=== PATIENT | male | born 1950 | race Caucasian/White ===

== ENCOUNTER 2018-03-01 09:05 | Outpatient (CLI) | payer MEDICAID ==
[~2018-03-01] VITALS: Ht 175.3 cm; Wt 115.0 kg
--- NOTE | ~2018-03-01 | OP ---
PATIENT NAME: LYNDSEY PAVON MEDICAL RECORD: [id number] :48 LOCATION:D.CAT ADMISSION DATE: SURGEON: GRIS REYNAGA MD DATE OF OPERATION: 03/01/2018 PROCEDURES: 1. PTCA stent LAD. 2. Left heart catheterization. 3. Selective coronary angiography. 4. Left ventriculogram. INDICATION: Angina and coronary artery disease. PROCEDURE IN DETAIL: After informed consent was obtained and after a detailed explanation of the risks, benefits as well as alternative therapies, the patient elected to proceed with angiogram and angioplasty. The right radial area was prepped and draped in normal sterile fashion. Right radial artery was cannulated via modified Seldinger technique with placement of 6-Mauritanian sheath. All catheters exchanged through this sheath. FINDINGS: Left ventriculogram was performed in a standard 30-degree GUIDRY view, reveals global hypokinesis throughout all segments, overall ejection fraction is 20%. SELECTIVE CORONARY ANGIOGRAPHY: 1. Left main is with no significant angiographic disease. 2. Left anterior descending has greater than 70% stenosis throughout the mid vessel, otherwise only mild irregularities. 3. Left circumflex has moderate diffuse disease, but no discrete flow-limiting stenosis. 4. Right coronary artery is small, nondominant with diffuse disease throughout. PTCA STENT OF THE LAD: The stent used was a 3.0 x 34 mm [place]. Result was 0% residual stenosis. OVERALL IMPRESSION: Successful percutaneous transluminal angioplasty stent of the left anterior descending going from greater than 70% initial stenosis to 0% residual. TRANSINT:[id number] Voice Confirmation ID: [id number] DOCUMENT ID: [id number] GRIS REYNAGA MD at 1006 CC: [id number] DICTATION DATE: 03/01/[address] CRIER: 03/01/18 1416 [facility] CLI 03/02/18 [place] [address]
--- NOTE | ~2018-03-01 | DS ---
PATIENT:LYNDSEY MATOS :48 MEDICAL RECORD: [id number] DISCHARGE SUMMARY ADMISSION DATE: 03/01/18 DISCHARGE DATE: 03/02/18 DISCHARGE DIAGNOSES: 1. Angina. 2. Coronary artery disease. 3. Percutaneous transluminal coronary angioplasty stent left anterior descending this admission. 4. ICD. 5. Hypertension. 6. Hyperlipidemia. HOSPITAL COURSE: Mrs. Matos presents with unstable anginal symptomatology, found to have significant disease of the LAD, underwent successful PTCA stent of the LAD, discharged home with the addition of Effient to his medical regimen. We will follow up in the next week for ICD replacement. TRANSINT:[id number] Voice Confirmation ID: [id number] DOCUMENT ID: [id number] GRIS REYNAGA MD at 1006 CC: [id number] DICTATION DATE: 03/02/18917 INFORMATION CLERK [employer]: 03/02/18 1839 DEP CLI 03/02/18 [place] [address] [place] [address]
--- NOTE | ~2018-03-01 | HEMODYNAMI ---
PATIENT:LYNDSEY PAVON MEDICAL RECORD: [id number] : 48 LOCATION:[facility] ADMISSION DATE: 03/01/18 Generatedon:03/01/201811:00 Patient name: LYNDSEY PAVON Patient #: [id number] SSN: : 1950 Date of study: 03/01/2018 Page: Of Hemodynamic Procedure Report Patient Data Patient Demographics Procedure consent was obtained First Name: LYNDSEY Gender: Male Last Name: SAVANAH : 1950 Middle Initial: PALMA Age: 67 year(s) Patient #: [id number] Race: Additional ID: [id number] Contact details Address: [address] [place] [address] State: [place] City: [place] Zip code: [address] Past Medical History Allergies Allergen Reaction Date Comments Reported Morphine 07/20/2016 Other allergy 07/20/2016 LISINOPRIL Other allergy 03/01/2018 Morphine,Meoprolol, Plavix Admission Admission Data Admission Date: 03/01/2018 Admission Time: 9:05 Admit Source: Other Procedure Procedure Types Cath Procedure Diagnostic Procedure [facility] w/Coronaries PCI Procedure Coronary Stent Coronary Stent Initial Procedure Description Procedure Date Procedure Date: 03/01/2018 Procedure Start Time: 10:28 Procedure End Time: 11:00 Procedure Staff Name Function Efe Glaser MD Performing Physician Thuy Mendes RT Monitor Messi Burger RT Scrub Manny Zamorano RN Nurse Procedure Data Cath Procedure Fluoroscopy Diagnostic fluoroscopy Total fluoroscopy Time: 3.8 time: 3.8 min min Diagnostic fluoroscopy Total fluoroscopy dose: dose: 1145 mGy 1145 mGy Contrast Material Contrast Material Type Amount (ml) Isovue 300 123 Entry Location Entry Primary Successful Side Size Upsize Upsize Entry Closure Barbour ccessful Closure Location (Fr) 1 (Fr) 2 (Fr) Remarks Device Remarks Radial Right 6 Fr Mechanical artery Short Compression Estimated blood loss: 10 ml Diagnostic catheters Device Type Used For End Catheter Placement DIAGNOSTIC [place] 110cm 5 LV Angiography Fr catheter ([id number]) DIAGNOSTIC [place] 110cm 5 Left Coronary Fr catheter ([id number]) Angiography DIAGNOSTIC AR 2 MOD 5 Fr Right Coronary catheter ([id number]) Angiography Procedure Complications No complications Procedure Medications Medication Administration Route Dosage Solumedrol I.V. 125 mg 0.9% NaCl I.V. 100 ml/hr Oxygen etCO2 Nasal cannula 2 l/min Heparin Flush Bag added to field 2 bags (1000units/500ml NS) Lidocaine 2% added to field 20 Radial Cocktail added to field 1 syringe (Verapomil 2mg/Nitro 400mcg/Heparin 1500units) Versed I.V. 2 mg Fentanyl I.V. 100 mcg Radial Cocktail I.A. 1 syringe (Verapomil 2mg/Nitro 400mcg/Heparin 1500units) Heparin Bolus I.V. 5000 units Integrilin (Bolus I.V. 10.2 ml 2mg/ml) Integrilin (Bolus wasted 9.8 ml 2mg/ml) Effient P.O. 10 mg Hemodynamics Rest Pre Cath Intra NCS Post Cath Vital Signs Time Heart Resp SPO2 etCO2 NIBP (mmHg) Rhythm Pain Sedation Rate (ipm) (%) (mmHg) Status Level (bpm) 10:22:15 70 27 97 0 136/78(105) NSR 0 (11) 10(A) , No pain 10:27:16 67 26 97 0 142/74(115) NSR 0 (11) 10(A) , No pain 10:32:11 77 21 95 0 115/67(81) NSR 0 (11) 10(A) , No pain 10:37:06 74 19 96 0 118/65(87) NSR 0 (11) 9(A) , No pain 10:42:03 74 24 96 0 124/63(85) NSR 0 (11) 9(A) , No pain 10:47:02 73 20 96 0 Measuring NSR 0 (11) 9(A) , No pain 10:47:04 70 20 96 0 127/65(96) NSR 0 (11) 9(A) , No pain 10:52:03 68 19 97 0 Measuring NSR 0 (11) 9(A) , No pain 10:52:06 68 20 97 0 127/68(96) NSR 0 (11) 9(A) , No pain 10:57:04 68 19 95 0 Measuring NSR 0 (11) 9(A) , No pain 10:57:09 68 19 96 0 123/70(98) NSR 0 (11) 9(A) , No pain Medications Time Medication Route Dose Verified Delivered Reason Not es Effectiveness by by 10:24:56 Solumedrol I.V. 125 mg Manny Manny Per physician Jaun Zamorano RN RN 10:25:18 0.9% NaCl I.V. 100 Manny Manny Per physician ml/hr Jaun Zamorano RN RN 10:25:28 Oxygen etCO2 2 l/min Manny Manny Per physician Nasal Jaun Zamorano cannula RN RN 10:25:38 Heparin Flush added 2 bags Manny Manny used for Bag to Lorney Zamorano procedure (1000units/500ml field RN RN NS) 10:25:49 Lidocaine 2% added 20ml Manny Manny for local to vial Lorigan Jaun anesthetic RN RN 10:26:03 Radial Cocktail added 1 Manny Manny used for (Verapomil to syringe Lorigan Jaun procedure 2mg/Nitro RN RN 400mcg/Heparin 1500units) 10:28:17 Versed I.V. 2 mg Manny Manny for sedation Jaun Zamorano RN RN 10:28:27 Fentanyl I.V. 100 mcg Manny Manny for sedation Jaun Zamorano RN RN 10:29:19 Radial Cocktail I.A. 1 Manny Efe for (Verapomil syringe Lorney Tauth MD vasodilation 2mg/Nitro RN 400mcg/Heparin 1500units) 10:33:42 Heparin Bolus I.V. 5000 Manny Manny for units Jaun Zamorano anticoagulation RN RN 10:35:24 Integrilin I.V. 10.2 ml Manny Manny for (Bolus 2mg/ml) Jaun Zamorano antiplatelet RN RN therapy 10:35:36 Integrilin wasted 9.8ml Manny Manny to sharp's (Bolus 2mg/ml) Jaun Zamorano RN RN 10:44:09 Effient P.O. 10 mg Manny Manny for Jaun Zamorano antiplatelet RN RN therapy Procedure Log Time Note 10:02:09 Informed consent obtained and on chart 10:02:12 Admit Source: Other 10:02:25 Diagnostic Cath status Elective 10:02:26 Thuy Mendes RT(R) sent for patient. Start room use. 10:02:27 Time tracking: Regular hours (M-F 7:00 - 5:00) 10:02:32 Plan of Care:Hemodynamics will remain stable., Cardiac rhythm will remain stable., Comfort level will be maintained., Respiratory function will remain adequate., Patient/ family verbilizes understanding of procedure., Procedure tolerated without complication., Recovers from procedure without complications.. 10:02:47 H&P Date Dictated: 03/01/2018 New H&P dictated by physician.. 10:09:28 Patient received from ED to CCL 1 Alert and oriented. Tansferred to table in Supine position. 10:09:29 Warm blankets applied, and yoni hugger turned on for patient comfort. 10:09:30 Correct patient and procedure confirmed by team. 10:09:31 ECG and BP/O2 sat monitors applied to patient. 10:09:32 Pre-procedure instructions explained to patient. 10:09:32 Pre-op teaching completed and patient verbalized understanding. 10:09:46 Family in waiting room. 10:09:48 Patient NPO since Midnight. 10:10:07 Patient allergic to Other allergyMorphine,Meoprolol, Plavix 10:21:04 Vital chart was started 10:21:07 Rhythm: paced 10:21:09 Full Disclosure recording started 10:21:13 Is the patient allergic to Iodine/contrast media? No. 10:21:16 Is patient on blood thinner?Yes 10:21:19 ACC The patient was administered the following blood thiners within the last 24 hours: ACCPlavix 10:22:49 Patient diabetic? No. 10:23:11 Previous problem with sedation/anesthesia? No ? 10:23:12 Snore? Yes 10:23:13 Sleep apnea? Yes 10:23:14 Deviated septum? No 10:23:15 Opens mouth fully? Yes 10:23:15 Sticks out tongue? Yes 10:23:17 Airway obstruction? No ? 10:23:21 Dentures? No ? 10:23:24 Pre procedure: right dorsailis pedis pulse 2+ Normal; easily identifiable; not easily obliterated 10:23:26 Modified Pal's test Ulnar < 7 seconds 10:23:28 Patient pain scale 0/10 ?. 10:23:33 IV patent on arrival in left forearm with 0.9% NaCl at [facility]. 10:23:38 Lab results completed and on chart. 10:23:55 Right Radial & Left Groin area was prepped with chlora-prep and draped in sterile fashion 10:23:57 Alarms reviewed by R. N. 10:23:57 Sharps counted by scrub and verified by R.N. 10:23:59 Use device set Radial Dx or PCI 10:24:01 ACIST Syringe (85658) opened to sterile field. 10:24:01 Medline Cath Pack ([id number]) opened to sterile field. 10:24:01 Bag Decanter (2002S) opened to sterile field. 10:24:02 DIAGNOSTIC WIRE .035 260cm J wire (814303) opened to sterile field. 10:24:02 ACIST Hand Control (11032) opened to sterile field. 10:24:03 ACIST Manifold (61380) opened to sterile field. 10:24:03 Tegaderm 4 x 4 (1626W) opened to sterile field. 10:24:04 MBrace Wrist Support ([id number]) opened to sterile field. 10:24:07 SHEATH 6Fr Prelude Radial ([id number]) opened to sterile field. 10:24:56 Solumedrol 125 mg I.V. was administered by Manny Zamorano RN; Per physician; 10:25:01 Final Timeout: patient, procedure, and site verified with staff and physician. All members of the team are in agreement. 10:25:03 Right Radial site verified by team. 10:25:06 Physical assessment completed. ASA score P 2 - A patient with mild systemic disease as per Efe Glaser MD. 10:25:09 Sedation plan: IV Moderate Sedation Medication:Versed, Fentanyl 10:25:18 0.9% NaCl 100 ml/hr I.V. was administered by Manny Zamorano RN; Per physician; 10:25:28 Oxygen 2 l/min etCO2 Nasal cannula was administered by Manny Zamorano RN; Per physician; 10:25:38 Heparin Flush Bag (1000units/500ml NS) 2 bags added to field was administered by Manny Zamorano RN; used for procedure; 10:25:49 Lidocaine 2% 20ml vial added to field was administered by Manny Zamorano RN; for local anesthetic; 10:26:03 Radial Cocktail (Verapomil 2mg/Nitro 400mcg/Heparin 1500units) 1 syringe added to field was administered by Manny Zamorano RN; used for procedure; 10::42 Procedure started. 10:27:45 Zero performed for pressure channel P1 10::17 Versed 2 mg I.V. was administered by Manny Zamorano RN; for sedation; 10::23 Local anesthetic to right radial artery with Lidocaine 2% by Efe Glaser MD.INITIAL ACCESS ONLY 10::27 Fentanyl 100 mcg I.V. was administered by Manny Zamorano RN; for sedation; 10:29:19 Radial Cocktail (Verapomil 2mg/Nitro 400mcg/Heparin 1500units) 1 syringe I.A. was administered by Efe Glaser MD; for vasodilation; 10:29:30 A 6 Fr Short sheath was inserted into the Right Radial artery 10:29:45 A DIAGNOSTIC [place] 110cm 5 Fr catheter ([id number]) was advanced over the wire and used for LV Angiography. 10:30:11 LV gram done using GUIDRY 10:30:15 Injector settings: Ml/sec: 5, Volume: 15, 10:30:21 EF : 20 % 10:31:11 Use device set [facility] PCI 10:31:14 INFLATOR Merit BasixCompak (HN2744) opened to sterile field. 10:31:19 CHOICE PT Extra Support 182cm wire ([id number]) opened to sterile field. 10:33:10 A DIAGNOSTIC [place] 110cm 5 Fr catheter (640057) was advanced over the wire and used for Left Coronary Angiography. 10:33:30 Catheter removed. 10:33:36 A DIAGNOSTIC AR 2 MOD 5 Fr catheter ([id number]) was advanced over the wire and used for Right Coronary Angiography. 10:33:42 Heparin Bolus 5000 units I.V. was administered by Manny Zamorano RN; for anticoagulation; 10:34:12 Catheter removed. 10:34:18 GUIDE 6FR XBLAD 3.5 catheter (55698333) opened to sterile field. 10:34:27 6 Fr XBLAD 3.5 guide catheter was inserted over the wire 10:35:24 Integrilin (Bolus 2mg/ml) 10.2 ml I.V. was administered by Manny Zamorano RN; for antiplatelet therapy; 10:35:36 Integrilin (Bolus 2mg/ml) 9.8ml wasted was administered by Manny Zamorano RN; to sharp's; 10:37:41 Guide Catheter removed. unable to cannulate vessel. 10:37:54 GUIDE 6FR XBLAD 4.0 catheter (09482058) opened to sterile field. 10:39:43 CHOICE PT ES wire advanced. 10:41:45 Place stent Inflation Number: 1 A SABRA RX 3.0 x 34 stent ([id number]) was prepped and advanced across the Mid LAD. The stent was deployed at 13 BRIANDA for 0:10 (min:sec). 10:41:49 Stent catheter was removed intact over wire. 10:41:49 Wire removed. 10:41:50 Guide catheter removed. 10:41:59 Sheath removed intact; hemostasis achieved with Mechanical Compression to the Right Radial artery. 10:42:01 Procedure ended.(Physican Out) 10:42:13 Fluoroscopy time 03.80 minutes. 10:42:18 Flurop Dose total: 1145 10:42:18 Fluoroscopy dose: 1145 mGy 10:42:51 Contrast amount:Isovue 300 123ml. 10:42:52 Sharps counted by scrub and verified by R.N. 10:42:54 TR band inflated with 12cc of air. 10:42:55 Insertion/operative site no bleeding no hematoma. 10:43:01 Post right radial artery:stable, clean and dry 10:43:03 Post Procedure Pulses reassessed and unchanged 10:43:06 Post-procedure physical assessment completed. ASA score P 2 - A patient with mild systemic disease as per Efe Glaser MD. 10:43:10 Post procedure rhythm: unchanged. 10:43:46 Estimated blood loss: 10 ml 10:43:48 Post procedure instruction explained to patient.Patient verbalizes understanding. 10:43:53 Patient needs reinforcement of post procedure teaching. 10:44:05 Procedure type changed to Cath procedure, Diagnostic procedure, LHC, LHC w/Coronaries, PCI procedure, Coronary Stent, Coronary Stent Initial 10:44:09 Effient 10 mg P.O. was administered by Manny Zamorano RN; for antiplatelet therapy; 10:44:27 TR BAND Standard ([id number]) opened to sterile field. 10:46:07 AICD INTERROGATED BY ALEK DWYER 10:46:20 Procedure Complication : No complications 10:46:22 See physician's report for complete and final results. 10:46:43 Procedure and supply charges have been captured, reviewed, submitted and are correct. 10:48:35 CALLED FOR PCU BED 11:00:06 Vital chart was stopped 11:00:08 Report given to Pre/Post Procedure Room. 11:00:12 Patient transfered to Pre/Post Procedure Room with Stretcher. 11:00:14 Procedure ended. 11:00:14 Full Disclosure recording stopped 11:00:18 End room use (Document Last) Intervention Summary Intervention Notes Time ActionType Lesion and Equipment Used Action# Pressure Duration Attributes 10:41:45 Place stent Mid LAD SABRA RX 3.0 x 1 13 00:10 34 stent ([id number]) Device Usage Item Name Manufacture Quantity Catalog Number Hospital Part Current Minimal Lot# / Charge Number Stock Stock Serial# Code ACIST Syringe Acist 1 29139 115329 359928 506259 20 (16568) Medical Systems Inc Medline Cath Cardinal 1 [id number] 321659 28393 729281 5 Pack Health ([id number]) Bag Decanter Microtek 1 2001S 711781 11173 053805 5 (2001S) Medical Inc. DIAGNOSTIC WIRE St Jared 1 176293 690196 039438 983269 30 .035 260cm J wire (134089) ACIST Hand Acist 1 07785 462007 206212 590022 5 Control (68612) Medical Systems Inc ACIST Manifold Acist 1 23008 758644 015689 757181 5 (15340) Medical Systems Inc Tegaderm 4 x 4 3M 1 1626W 205837 660159 916320 5 (1626W) MBrace Wrist Advanced 1 140-0250-00 437484 89577 500363 5 Support Vascular ([id number]) Dynamics SHEATH 6Fr Merit 1 [id number] 231408 878965 265679 5 Prelude Radial Medical ([id number]) DIAGNOSTIC Terumo 1 40-7200 675738 252756 391360 5 [place] 110cm 5 Fr catheter (650083) INFLATOR Merit Merit 1 QB4601 359420 222420 127634 15 [facility] Medical (DL1204) CHOICE PT Extra [place] 1 [id number] 912342 629657 548308 5 Support 182cm Scientific wire ([id number]) DIAGNOSTIC AR 2 Cardinal 1 [id number] 930572 619981 988622 20 MOD 5 Fr Health catheter (361872A) GUIDE 6FR XBLAD Cardinal 1 [id number] 480457 389581 003957 10 3.5 catheter Health (58550962) GUIDE 6FR XBLAD Cardinal 1 78734113 454661 048780 423863 3 4.0 catheter Health (57649499) SABRA RX 3.0 x Medtronic 1 [id number] 914153 6124005 682328 5 [id number] 34 stent ([id number]) TR BAND Terumo 1 [id number] 395013 708729 583516 40 Standard ([id number]) Signature Audit [place] Stage Time Signature Unsigned Intra-Procedure 03/01/2018 Thuy 11:00:30 AM Counts RT(R) Signatures Monitor : Thuy Signature : Counts RT Date : Time : [address] [address]
--- NOTE | ~2018-03-01 | HP ---
PATIENT: LYNDSEY MATOS MEDICAL RECORD: [id number] ACCOUNT: [id number] LOCATION:[place] : 48 ADMISSION DATE: 03/01/18 HISTORY AND PHYSICAL EXAMINATION DIAGNOSES: 1. Unstable angina. 2. Coronary artery disease. 3. ICD. 4. Cardiomyopathy, chronic systolic dysfunction. 5. Hypertension. 6. Hyperlipidemia. HISTORY OF PRESENT ILLNESS: Mr. Matos presents with increasing episodes of chest pain and chest discomfort compatible with angina greater than 1 week in duration. It is just like that of his previous angina. He is status post multivessel PTCA and stent. He has cardiomyopathy. Ejection fraction in the 20% range. He as well has an ICD and he is not sure if he has had ICD discharges. PHYSICAL EXAMINATION: GENERAL APPEARANCE: Well-nourished, well-developed, appears stated age. Level of distress, comfortable. PSYCHIATRIC: Mental status, alert, normal affect. Orientation, oriented to time, place and person. EYES: Lids and conjunctiva, noninjected. No discharge, no pallor. ENT: Lips, teeth, gums, normal dentition. Oropharynx, no cyanosis, no pallor. NECK: Carotid arteries, bilateral normal upstroke, no bruits, no thrills. JUGULAR VEINS: No jugular venous pressure or distention. CERVICAL LYMPH NODES: Nontender, nonenlarged. THYROID: Not enlarged. Nontender. No nodules. LUNGS: Respiratory effort, unlabored. CHEST: Normal curvature. No thoracic deformity. No chest wall tenderness. Percussion, resonant. Auscultation, clear. No wheezes, no rales, no rhonchi. CARDIOVASCULAR: Precordial exam, nondisplaced. No heaves or pericardial thrills. Rate and rhythm, regular. Heart sounds, normal S1, normal S2. No S3, no gallop, no rub. Systolic murmur, not heard. Diastolic murmur, not heard. EXTREMITIES: No cyanosis, no edema. Peripheral pulses, full and equal in all extremities, except as noted. No bruits appreciated. ABDOMEN: Soft, nondistended. Normal aorta. No bruit. Nontender. No masses. Liver, nontender, no hepatomegaly. Spleen, nontender, no splenomegaly. MUSCULOSKELETAL: No joint tenderness. No joint swelling. No erythema. NEUROLOGICAL: Normal gait, normal strength, normal tone. SKIN: Warm and dry. REVIEW OF SYSTEMS: The patient reports easy bruising but reports no swollen glands. The patient reports no fever, no night sweats, no significant weight gain, no significant weight loss. No significant exercise tolerance. The patient reports no dry eyes, no irritation, no vision change. Patient reports no difficulty hearing and no ear pain. Patient reports no frequent nose bleeds or nose and sinus problems. Patient reports on arm pain on exertion. No shortness of breath while lying down. No history of heart murmur. Patient reports no cough, no wheezing or coughing up blood. Patient reports no abdominal pain, no vomiting. Normal appetite. No diarrhea and not vomiting blood. No nausea and no constipation. Patient reports no incontinence. No HISTORY AND PHYSICAL [id number] LYNDSEY MATOS difficulty urinating. No hematuria. No increased frequency. Patient reports no muscle aches. No weakness, no arthralgias, no back pain. No swelling of the extremities. Patient reports no abnormal mole, no jaundice, no rashes. Reports no loss of consciousness. No weakness and no numbness. No seizures, dizziness, or headaches. The patient reports no depression, no sleep disturbance, feeling safe in a relationship and no alcohol abuse. Patient reports on fatigue. Reports no runny nose or sinus pressure. No itching, no hives, and no frequent sneezing. ASSESSMENT AND PLAN: ICD was interrogated. It is LCINT, but there have been no therapies delivered and no ventricular tachycardia. We will proceed with coronary angiography. Further care depends upon findings of the angiography. TRANSINT:[id number] Voice Confirmation ID: [id number] DOCUMENT ID: [id number] GRIS REYNAGA MD at 1006 CC: [id number] DICTATION DATE: 03/01/18 1051 RIVET TAPPING MACHINE OPERATOR: 03/01/18 1229 DEP CLI 03/02/18 [place] [id number]
[~2018-03-01 09:05] MED LIST: ASPIRIN325 MG PO; AVAPRO150 MG PO; BAYER CHEWABLE81 MG PO; BENADRYL25 MG PO; BENICAR20 MG PO; BETA BLOCKER; BLOOD THINNER; CIMETIDINE200 MG PO; COREG 3.1253.125 MG GT; COREG 3.1253.125 MG PO; DIOVAN160 MG PO; EFFIENT10 MG PO; EPIPEN0.3 MG/0.3 IM; FAMOTIDINE10 MG; KLOR-CON 1010 MEQ; KLOR-CON20 MEQ/PKT PO; LASIX20 MG; LASIX20 MG PO; MEDROL DOSE PACK4 MG PO; PEPCID20 MG PO; PLAVIX75 MG PO; PRINIVIL20 MG PO; UNKNOWN B/P MED
[2018-03-01 09:28] LABS: BASOPHILS 0.2 % (0-2); EOSINOPHILS 3.6 % (0-7); HEMATOCRIT 43.7 % (42.0-54.0); IMMATURE GRANULOCYTES 0.2 % (0-5); LYMPHOCYTES 21.6 % (15-50); MCH 30.3 pg (26.0-34.0); MCHC 34.3 g/dL (31.0-37.0); MCV 88.3 fL (80.0-100.0); MEAN PLATELET VOLUME 11.4 fL (7.4-10.4); MONOCYTES 11.8 % (2-11); NEUTROPHILS 62.6 % (40-80); PLATELET COUNT 165 10x3/uL (130-400); RBC 4.95 10x6/uL (4.20-6.10); RDW 12.4 % (11.5-14.5); WBC 6.1 10x3/uL (4.8-10.8)
[2018-03-01 09:59] LABS: ALBUMIN 3.4 g/dL (3.4-5.0); ALKALINE PHOSPHATASE 56 U/L (46-116); ALT (SGPT) 25 U/L (10-68); BILIRUBIN - TOTAL 0.68 mg/dL (0.2-1.3); CALC OSMOLALITY 282 mosm/kg (275-300); CALCIUM 8.6 mg/dL (8.5-10.1); CARBON DIOXIDE 24.8 mmol/L (21.0-32.0); CHLORIDE - SERUM 106 mmol/L (98-107); CREATININE - SERUM 1.3 mg/dL (0.6-1.3); GLUCOSE 104 mg/dL (74-106); POTASSIUM - SERUM 4.2 mmol/L (3.5-5.1); PROTEIN - SERUM 6.6 g/dL (6.4-8.2); SODIUM 140 mmol/L (136-145); UREA NITROGEN 24 mg/dL (7-18); eGFR NON AFRICAN AMERICAN 58 mL/min (90-120)
[2018-03-01 10:15] LABS: CHOL - HDL RATIO 4.6 ratio (2.3-4.9); CHOLESTEROL, TOTAL 184 mg/dL (0-200); CKMB 3.1 U/L (0.0-3.6); CREATINE KINASE 79 UL (21-232); HDL CHOLESTEROL 40 mg/dL (32-96); LDL CHOLESTEROL 113 mg/dL (0-100); LDL-HDL RATIO 2.8 ratio (1.5-3.5); TRIGLYCERIDE 159 mg/dL (30-200); TROPONIN-I < 0.017 ng/mL (0.000-0.060)
[2018-03-01 14:08] VITALS: BP 158/74; Ht 175.3 cm; Wt 115.0 kg
[2018-03-01 15:46] VITALS: BP 153/80
[2018-03-01 20:00] VITALS: BP 142/65
[2018-03-02] VITALS: BP 138/56
[2018-03-02 04:00] VITALS: BP 147/61
[2018-03-02 08:53] VITALS: BP 155/70
[2018-03-02] MEDS ORDERED: EFFIENT10 MG PO (09:54)
[2018-03-10] MEDS ORDERED: [UNRECOGNIZED DRUG - OTHER] PO (08:03)
[2018-03-10] MEDS ORDERED: KEFLEX500 MG PO (09:56)
== END 2018-03-02 12:00 | disposition home or self-care (01) ==
LOC: D.ER 09:05 → D.CATH 09:05 → D.M2 09:05 → EDSTATUS 10:10 → D.M2 11:02 → D.CATH 03-02 12:00
PROVIDERS: Family Medicine
DX: I25.110 Atherosclerotic heart disease of native coronary artery with unstable angina pectoris (principal); Z95.810 Presence of automatic (implantable) cardiac defibrillator; I11.0 Hypertensive heart disease with heart failure; I50.22 Chronic systolic (congestive) heart failure; I42.9 Cardiomyopathy, unspecified; E78.5 Hyperlipidemia, unspecified; Z01.812 Encounter for preprocedural laboratory examination
CPT/HCPCS: 93458; C9600

== ENCOUNTER → 2018-03-10 06:35 | Outpatient (CLI) | payer SELFPAY ==
[~2018-03-10] VITALS: Ht 175.3 cm; Wt 109.1 kg
--- NOTE | ~2018-03-10 | HEMODYNAMI ---
PATIENT:LYNDSEY PAVON MEDICAL RECORD: [id number] : 48 LOCATION:[facility] ADMISSION DATE: 03/10/18 Generatedon:03/10/20189:54 Patient name: LYNDSEY PAVON Patient #: [id number] SSN: : 1950 Date of study: 03/10/2018 Page: Of Hemodynamic Procedure Report Patient Data Patient Demographics Procedure consent was obtained First Name: LYNDSEY Gender: Male Last Name: SAVANAH : 1950 Middle Initial: PALMA Age: 67 year(s) Patient #: [id number] Race: Additional ID: [id number] Contact details Address: [address] [place] [address] State: [place] City: [place] Zip code: [address] Past Medical History Allergies Allergen Reaction Date Comments Reported Morphine 07/20/2016 Other allergy 07/20/2016 LISINOPRIL Other allergy 03/01/2018 Morphine,Meoprolol, Plavix Admission Admission Data Admission Date: 03/10/2018 Admission Time: 6:35 Procedure Procedure Types Cath Procedure Diagnostic Procedure PPM/ICD Internal Cardiac Defib. Exchange Sedation Charges Moderate Sedation up to 30 minutes Procedure Description Procedure Date Procedure Date: 03/10/2018 Procedure Start Time: 9:14 Procedure End Time: 9:54 Procedure Staff Name Function Jose Bailey MD Performing Physician Thuy Mendes RT Monitor Jean Mcelroy RN Nurse Messi Burger RT Scrub Procedure Data Cath Procedure Estimated blood loss: 5 ml Procedure Complications No complications Procedure Medications Medication Administration Route Dosage Oxygen NC 2 l/min Ancef (1Gm/50ml NS) I.V.P.B 1 g Ancef Irrigation Topical 1 g (1gm/500ml NS) Versed I.V. 2 mg Fentanyl I.V. 50 mcg Versed I.V. 1 mg Fentanyl I.V. 25 mcg Fentanyl I.V. 50 mcg Fentanyl I.V. 50 mcg Hemodynamics Rest Heart Rate: 70 (bpm) Snapshots Pre Cath Intra NCS Post Cath Vital Signs Time Heart Resp SPO2 etCO2 NIBP (mmHg) Rhythm Pain Sedation Rate (ipm) (%) (mmHg) Status Level (bpm) 9:05:49 71 27 96 0 Time NSR 0 (11) 10(A) Exceeded , No pain 9:08:57 71 18 96 0 173/91(142) NSR 0 (11) 10(A) , No pain 9:13:17 68 16 97 0 139/119(131) NSR 0 (11) 10(A) , No pain 9:18:22 83 19 93 0 173/100(137) NSR 0 (11) 10(A) , No pain 9:22:40 90 19 93 0 174/96(127) NSR 0 (11) 10(A) , No pain 9:26:56 82 18 95 0 193/101(137) NSR 0 (11) 10(A) , No pain 9:31:20 99 19 94 0 182/99(130) NSR 0 (11) 10(A) , No pain 9:35:41 90 17 97 0 154/96(118) NSR 0 (11) 10(A) , No pain 9:42:03 77 20 97 0 Time NSR 0 (11) 10(A) Exceeded , No pain 9:47:40 74 19 99 0 184/98(141) NSR 0 (11) 10(A) , No pain 9:52:38 13 96 0 Measuring NSR 0 (11) 10(A) , No pain 9:54:02 15 97 0 Time NSR 0 (11) 10(A) Exceeded , No pain Medications Time Medication Route Dose Verified Delivered Reason Notes Effectiven ess by by 9:09:37 Oxygen NC 2 Jose Buffie used for l/min Leo Mcelroy molder punch 9:09:48 Ancef I.V.P.B 1 g Jose Buffie used for (1Gm/50ml Leo Mcelroy molder punch NS) 9:09:55 Ancef Topical 1 g Jose Buffie used for Irrigation Leo Mcelroy molder punch (1gm/500ml NS) 9:12:28 Versed I.V. 2 mg Jose Buffie for Leo Mcelroy RN sedation 9:12:35 Fentanyl I.V. 50 Jose Buffie for mcg Leo Mcelroy RN sedation 9:16:06 Versed I.V. 1 mg Jose Buffie for Leo Mcelroy RN sedation 9:16:12 Fentanyl I.V. 25 Jose Buffie for mcg Leo Mcelroy RN sedation 9:18:13 Fentanyl I.V. 50 Jose Buffie for mcg Leo Mcelroy RN sedation 9:30:45 Fentanyl I.V. 50 Jose Buffie for mcg Leo Mcelroy RN sedation Procedure Log Time Note 8:44:40 Jean Mcelroy RN sent for patient. Start room use. 8:44:41 Time tracking: Regular hours (M-F 7:00 - 5:00) 8:44:45 Plan of Care:Hemodynamics will remain stable., Cardiac rhythm will remain stable., Comfort level will be maintained., Respiratory function will remain adequate., Patient/ family verbilizes understanding of procedure., Procedure tolerated without complication., Recovers from procedure without complications.. 8:51:23 Patient received from Pre/Post Procedure Room to [facility] 3 Alert and oriented. Tansferred to table in Supine position. 8:51:24 Warm blankets applied, and yoni hugger turned on for patient comfort. 8:51:24 Correct patient and procedure confirmed by team. 8:51:25 Signed procedure consent form obtained from patient. 8:51:26 ECG and BP/O2 sat monitors applied to patient. 8:51:27 Full Disclosure recording started 9:02:36 Vital chart was started 9:02:39 Rhythm: sinus rhythm 9:02:49 H&P Date Dictated: 02/21/2018 Within 30 days and on chart., H&P Addendum completed by physician on day of procedure. (MUST COMPLETE FOR ALL OUTPATIENTS). 9:02:51 Pre-procedure instructions explained to patient. 9:02:51 Pre-op teaching completed and patient verbalized understanding. 9:02:53 Family in patients room. 9:02:54 Patient NPO since Midnight. 9:07:46 Is the patient allergic to Iodine/contrast media? No. 9:07:50 Patient diabetic? No. 9:09:02 Is patient on blood thinner?Yes 9:09:04 ACC The patient was administered the following blood thiners within the last 24 hours: ACCEffient 9:09:10 Previous problem with sedation/anesthesia? No ? 9:09:11 Snore? Yes 9:09:11 Sleep apnea? Yes 9:09:12 Deviated septum? No 9:09:14 Opens mouth fully? Yes 9:09:14 Sticks out tongue? Yes 9:09:16 Airway obstruction? No ? 9:09:21 Dentures? No ? 9:09:26 Patient pain scale 0/10 ?. 9:09:31 IV patent on arrival in right forearm with 0.9% NaCl at [facility]. 9:09:33 Lab results completed and on chart. 9:09:37 Oxygen 2 l/min NC was administered by Jean Mcelroy RN; used for procedure; 9:09:41 Left chest area was prepped with chlora-prep and draped in sterile fashion 9:09:42 Alarms reviewed by R. N. 9:09:42 Sharps counted by scrub and verified by R.N. 9:09:48 Ancef (1Gm/50ml NS) 1 g I.V.P.B was administered by Jean Mcelroy RN; used for procedure; 9:09:55 Ancef Irrigation (1gm/500ml NS) 1 g Topical was administered by Jean Mcelroy RN; used for procedure; 9:09:56 Medtronic credit representative Christos Goldbergoe present for procedure. 9:10:23 Pre sharps counted by scrub and verified by RN: Sutures: 2; Sponges: 5; Stick needles: 0; Skin needles: 2; Blade: 1; Cautery: 1 9:10:26 Grounding pad site Right thigh. 9:10:27 Grounding pad site free from injury. 9:10:34 Use device set NORRED PPM 9:10:39 Tegaderm 4 x 4 (1626W) opened to sterile field. 9:10:40 Stapler Skin 35W Proximate Plus (PMW35) opened to sterile field. 9:10:40 Peak PlasmaBlade 3.0S ([id number]) opened to sterile field. 9:10:42 Cautery Tip Dormitory Maid opened to sterile field. 9:10:43 Cautery Pushbutton Pencil opened to sterile field. 9:10:47 2-0 Vicryl Plus [id number] opened to sterile field. 9:10:55 2-0 Vicryl Plus [id number] opened to sterile field. 9:11:02 Final Timeout: patient, procedure, and site verified with staff and physician. All members of the team are in agreement. 9::14 Left chest site verified by team. 9::17 Physical assessment completed. ASA score P 2 - A patient with mild systemic disease as per Jose Bailey MD. 9:11:20 Sedation plan: IV Moderate Sedation Medication:Versed, Fentanyl 9:12:28 Versed 2 mg I.V. was administered by Jean Mcelroy RN; for sedation; 9:12:35 Fentanyl 50 mcg I.V. was administered by Jean Mcelroy RN; for sedation; 9:13:52 Baseline sample Acquired. 9:14:15 Procedure started. 9:14:21 Lidocaine 1% was administered to left subclavicular area by Jose Bailey MD . 9:14:24 Incision made to left subclavicular area. 9:16:06 Versed 1 mg I.V. was administered by Jean Mcelroy RN; for sedation; 9:16:12 Fentanyl 25 mcg I.V. was administered by Jean Mcelroy RN; for sedation; 9:18:13 Fentanyl 50 mcg I.V. was administered by Jean Mcelroy RN; for sedation; 9:19:[address] ICD [id number] opened to sterile field. 9:22:55 Generator pocket made/opened. 9:23:04 AICD was removed.. 9:30:45 Fentanyl 50 mcg I.V. was administered by Jean Mcelroy RN; for sedation; 9:33:25 AICD was attached to lead(s) and inserted into pocket. 9:47:02 Subcutaneous closure was completed with 2-0 vicryl. 9:47:06 Skin closure was completed with 35mm Crawford. 9:47:14 Lt Chest incision was dressed with gauze eyepad and tegaderm. 9:47:22 Procedure ended.(Physican Out) 9:47:35 Sharps counted by scrub and verified by R.N. 9:47:47 Post sharps counted by scrub and verified by RN: Sutures: 2; Sponges: 5; Stick needles: 0; Skin needles: 2; Blade: 1; Cautery: 1 9:47:52 Insertion/operative site no bleeding no hematoma. 9:47:53 Post Procedure Pulses reassessed and unchanged 9:47:56 Post-procedure physical assessment completed. ASA score P 2 - A patient with mild systemic disease as per Jose Bailey MD. 9:48:01 Post procedure rhythm: unchanged. 9:48:03 Estimated blood loss: 5 ml 9:48:04 Post procedure instruction explained to patient.Patient verbalizes understanding. 9:48:04 Patient needs reinforcement of post procedure teaching. 9:48:43 Procedure type changed to Cath procedure, Diagnostic procedure, PPM/ICD, Internal Cardiac Defib. Exchange, Sedation Charges, Moderate Sedation up to 30 minutes 9:48:46 See physician's report for complete and final results. 9:49:39 Procedure and supply charges have been captured, reviewed, submitted and are correct. 9:49:44 Procedure Complication : No complications 9:51:58 RT VENTRICLE: RWAVE-3.6, PACING IMP-361, HVB IMP-43, HVX IMP-56, THRESHOLD-1.0 9:52:40 RT ATRUIM: P WAVE-2.3, PACING IMP-475, THRESHOLD-1.0 9:54:16 Vital chart was stopped 9:54:18 Report given to Pre/Post Procedure Room. 9:54:27 Patient transfered to Pre/Post Procedure Room with Stretcher. 9:54:39 Procedure ended. 9:54:39 Full Disclosure recording stopped 9:54:42 End room use (Document Last) Device Usage Item Name Manufacture Quantity Catalog Hospital Part Current Minimal Lot# / Number Charge Number Stock Stock Serial# Code Tegaderm 4 3M 1 1626W [id number] [id number] 5 x 4 (1626W) Stapler Unknown 1 PMW35 860080 045975 205911 5 Skin 35W Proximate Plus (PMW35) Peak Medtronic 1 [id number] 067292 128542 5 PlasmaBlade 3.0S ([id number]) Cautery Tip Microtek 1 [id number] 227618 655464 379269 5 Dormitory Maid Medical Inc. Cautery Microtek 1 [id number] 949855 32335 459644 5 Pushbutton Medical Inc. Pencil 2-0 Vicryl Ethicon 2 [id number] 819762 721828 156780 5 Plus [id number] Medtronic Medtronic 1 [id number] 539574 478670 [id number] EXP ICD [id number] 2019-05-14 Signature Audit [place] Stage Time Signature Unsigned Intra-Procedure 03/10/2018 Thuy 9:54:52 AM Counts RT(R) Signatures Monitor : Thuy Signature : Counts RT Date : Time : [address] [address]
[~2018-03-10 06:35] MED LIST changes: +KEFLEX500 MG PO; +[UNRECOGNIZED DRUG - OTHER] PO
[2018-03-10 08:15] VITALS: BP 173/77; Ht 175.3 cm; Wt 109.1 kg
[2018-03-10 08:29] LABS: HEMATOCRIT 44.4 % (42.0-54.0); MCH 30.1 pg (26.0-34.0); MCHC 33.8 g/dL (31.0-37.0); MEAN PLATELET VOLUME 11.2 fL (7.4-10.4); RBC 4.99 10x6/uL (4.20-6.10); RDW 12.7 % (11.5-14.5); WBC 6.4 10x3/uL (4.8-10.8)
[2018-03-10 08:41] LABS: ANION GAP 9.1 mmol/L (8-16); CALCIUM 9.1 mg/dL (8.5-10.1); CARBON DIOXIDE 29.2 mmol/L (21.0-32.0); CREATININE - SERUM 1.2 mg/dL (0.6-1.3); POTASSIUM - SERUM 4.3 mmol/L (3.5-5.1)
[2018-03-10 08:43] LABS: APTT 26.9 SECONDS (22.8-39.4); INR 1.01 (0.85-1.17); PROTIME 12.9 SECONDS (11.6-15.0)
== END | disposition home or self-care (01) ==
LOC: D.CATH 06:35
PROVIDERS: Internal Medicine Cardiovascular Disease
DX: Z45.02 Encounter for adjustment and management of automatic implantable cardiac defibrillator (principal); I25.10 Atherosclerotic heart disease of native coronary artery without angina pectoris; I10 Essential (primary) hypertension; E78.5 Hyperlipidemia, unspecified; Z01.812 Encounter for preprocedural laboratory examination

== ENCOUNTER 2018-11-11 21:11 | Inpatient (IN) | payer MEDICAID ==
[~2018-11-11] VITALS: Ht 175.3 cm; Wt 109.1 kg
--- NOTE | ~2018-11-11 | HEMODYNAMI ---
PATIENT:LYNDSEY PAVON MEDICAL RECORD: [id number] : 48 [facility] [id number] ADMISSION DATE: 11/12/18 Generatedon:11/13/20189:16 Patient name: LYNDSEY PAVON Patient #: [id number] SSN: : 1950 Date of study: 11/13/2018 Page: Of Hemodynamic Procedure Report Patient Data Patient Demographics Procedure consent was obtained First Name: LYNDSEY Gender: Male Last Name: SAVANAH : 1950 [facility] Initial: PALMA Age: 68 year(s) Patient #: [id number] Race: Additional ID: [id number] Contact details Address: [address] [place] [address] State: [place] City: [place] Zip code: [address] Past Medical History Allergies Allergen Reaction Date Comments Reported Morphine 07/20/2016 Other allergy 07/20/2016 LISINOPRIL Other allergy 03/01/2018 Morphine,Meoprolol, Plavix Other allergy 11/13/2018 lISINOPRIL, METOPROLOL, MORPHINE, CLOPIDOGREL Admission Admission Data Admission Date: 11/12/2018 Admission Time: 13:13 Admit Source: Emergency department Room #: D.2123 Weight (lbs.): 242.51 Weight (kg.): 110 Lab Results Lab Result Date: 11/13/2018 Lab Result Time: 4:10 Biochemistry Name Units Result Min Max BUN mg/dl 18 --(---*)-- 7 18 Creatinine mg/dl 1.3 --(---*)-- 0.6 1.3 CBC Name Units Result Min Max Hematocrit % 38.7 *-(----)-- 42 54 Hemoglobin g/dl 12.8 -*(----)-- 13.5 17.5 Procedure Procedure Types Cath Procedure Diagnostic Procedure LHC LHC w/Coronaries Procedure Description Procedure Date Procedure Date: 11/13/2018 Procedure Start Time: 9:04 Procedure End Time: 9:15 Procedure Staff Name Function Hunter Araujo MD Performing Physician Messi Burger RT Monitor Thuy Mendes RT Scrub Manny Zamorano RN Nurse Procedure Data Cath Procedure Fluoroscopy Diagnostic fluoroscopy Total fluoroscopy Time: 2.5 time: 2.5 min min Diagnostic fluoroscopy Total fluoroscopy dose: 609 dose: 609 mGy mGy Contrast Material Contrast Material Type Amount (ml) Isovue 300 57 Entry Location Entry Primary Successful Side Size Upsize Upsize Entry Closure Barbour ccessful Closure Location (Fr) 1 (Fr) 2 (Fr) Remarks Device Remarks Radial Right 6 Fr Mechanical artery Short Compression Estimated blood loss: 5 ml Diagnostic catheters Device Type Used For End Catheter Placement DIAGNOSTIC Barry 110cm 5 Procedure Fr catheter ([id number]) DIAGNOSTIC AR MOD 5Fr Procedure Catheter ([id number]) Procedure Complications No complications Procedure Medications Medication Administration Route Dosage 0.9% NaCl I.V. 30 ml/hr Oxygen etCO2 Nasal cannula 4 l/min Heparin Flush Bag added to field 2 bags (1000units/500ml NS) Lidocaine 2% added to field 20 Radial Cocktail added to field 1 syringe (Verapomil 2mg/Nitro 400mcg/Heparin 1500units) Versed I.V. 1 mg Fentanyl I.V. 50 mcg Versed I.V. 1 mg Fentanyl I.V. 50 mcg Radial Cocktail I.A. 1 syringe (Verapomil 2mg/Nitro 400mcg/Heparin 1500units) Hemodynamics Rest HGB: 12.8 (g/dl) Heart Rate: 107 (bpm) Pressure Samples Time Site Value (mmHg) Purpose Heart Use Rate(bpm) 9:06 LV 81/17,11 Snapshot 91 Gradients Valve Time Site Site Mean SEP/DFP Peak To Heart Use 1 2 (mmHg) (sec/min) Peak Rate (mmHg) (bpm) Aortic 9:06 LV AO 92 Snapshots Pre Cath Intra NCS Post Cath Vital Signs Time Heart Resp SPO2 etCO2 NIBP (mmHg) Rhythm Pain Sedation Rate (ipm) (%) (mmHg) Status Level (bpm) 8:44:19 94 34 97 0 136/80(105) NSR 0 (11) 10(A) , No pain 8:48:41 89 29 96 28 135/71(95) NSR 0 (11) 10(A) , No pain 8:53:09 90 30 95 43.9 135/73(94) NSR 0 (11) 10(A) , No pain 8:57:41 89 27 95 45.4 128/63(89) NSR 0 (11) 10(A) , No pain 9:02:06 88 27 96 41.6 123/66(90) NSR 0 (11) 10(A) , No pain 9:06:22 77 29 95 42.4 107/57(79) NSR 0 (11) 10(A) , No pain 9:10:40 86 26 94 47.7 115/63(80) NSR 0 (11) 10(A) , No pain 9:16:04 86 30 97 16.6 139/76(101) NSR 0 (11) 10(A) , No pain Medications Time Medication Route Dose Verified Delivered Reason Notes Effectiveness by by 8:48:53 0.9% NaCl I.V. 30 Manny Manny Per ml/hr Jaun Zamorano physician RN RN 8:49:07 Oxygen etCO2 4 l/min Manny Manny Per Nasal Jaun Zamorano physician cannula RN RN 8:49:22 Heparin Flush added 2 bags Manny Manny used for Bag to Jaun Zamorano procedure (1000units/500ml field RN RN NS) 8:49:34 Lidocaine 2% added 20ml Manny Manny for local to vial Lorigan Lorney anesthetic field FISHER RN 8:53:25 Radial Cocktail added 1 Manny Manny used for (Verapomil to syringe Lorigan Lorigan procedure 2mg/Nitro field FISHRE RN 400mcg/Heparin 1500units) 9:02:56 Versed I.V. 1 mg Manny Manny for sedation Jaun Zamorano RN RN 9:03:31 Fentanyl I.V. 50 mcg Manny Manny for sedation Jaun Zamorano RN RN 9:05:01 Radial Cocktail I.A. 1 Manny Hunter for (Verapomil syringe Lorigan Van vasodilation 2mg/Nitro PHILLIP GRIMES 400mcg/Heparin 1500units) 9:08:24 Versed I.V. 1 mg Manny Manny for sedation Jaun Zamorano RN RN 9:08:29 Fentanyl I.V. 50 mcg Manny Manny for sedation Jaun Zamorano RN corporate trust officer Log Time Note 8:20:57 Informed consent obtained and on chart 8:21:00 Admit Source: Emergency department 8:21:21 Diagnostic Cath status Elective 8:21:23 Time tracking: Regular hours (M-F 7:00 - 5:00) 8:21:28 Plan of Care:Hemodynamics will remain stable., Cardiac rhythm will remain stable., Comfort level will be maintained., Respiratory function will remain adequate., Patient/ family verbilizes understanding of procedure., Procedure tolerated without complication., Recovers from procedure without complications.. 8:21:39 H&P Date Dictated: 11/12/2018 Within 30 days and on chart.. 8:22:39 Patient Weight : 242.51 lbs 8:25:16 Manny Zamorano RN sent for patient. Start room use. 8:32:42 Patient received from PCU to CCL 1 Alert and oriented. Tansferred to table in Supine position. 8:32:43 Warm blankets applied, and yoni hugger turned on for patient comfort. 8:32:43 Correct patient and procedure confirmed by team. 8:32:44 ECG and BP/O2 sat monitors applied to patient. 8:32:45 Full Disclosure recording started 8:42:56 Vital chart was started 8:48:53 0.9% NaCl 30 ml/hr I.V. was administered by Manny Zamorano RN; Per physician; 8:49:07 Oxygen 4 l/min etCO2 Nasal cannula was administered by Manny Zamorano RN; Per physician; 8:49:22 Heparin Flush Bag (1000units/500ml NS) 2 bags added to field was administered by Manny Zamorano RN; used for procedure; 8:49:34 Lidocaine 2% 20ml vial added to field was administered by Manny Zamorano RN; for local anesthetic; 8:52:03 Baseline sample Acquired. 8:52:11 Rhythm: sinus tachycardia 8:52:14 Pre-procedure instructions explained to patient. 8:52:15 Pre-op teaching completed and patient verbalized understanding. 8:52:16 Family unavailable. 8:52:17 Patient NPO since Midnight. 8:52:46 Patient allergic to Other allergylISINOPRIL, METOPROLOL, MORPHINE, CLOPIDOGREL 8:52:48 Is the patient allergic to Iodine/contrast media? No. 8:52:49 Is patient on blood thinner?No 8:52:50 Patient diabetic? No. 8:52:52 Previous problem with sedation/anesthesia? No ? 8:52:53 Snore? Yes 8:52:54 Sleep apnea? No 8:52:55 Deviated septum? No 8:52:56 Opens mouth fully? Yes 8:52:56 Sticks out tongue? Yes 8:52:57 Airway obstruction? No ? 8:52:59 Dentures? No ? 8:53:01 Modified Pal's test Ulnar < 7 seconds 8:53:02 Patient pain scale 0/10 ?. 8:53:08 IV patent on arrival in right hand with 0.9% NaCl at [facility]. 8:53:25 Radial Cocktail (Verapomil 2mg/Nitro 400mcg/Heparin 1500units) 1 syringe added to field was administered by Manny Zamorano RN; used for procedure; 8:53:43 Lab Result : BUN 18 mg/dl 8:53:43 Lab Result : Hemoglobin 12.8 g/dl 8:53:43 Lab Result : Creatinine 1.3 mg/dl 8:53:43 Lab Result : Hematocrit 38.7 % 8:53:45 Lab results completed and on chart. 8:53:47 Right Radial & Right Groin area was prepped with chlora-prep and draped in sterile fashion 8:53:49 Alarms reviewed by R. N. 8:53:54 Sharps counted by scrub and verified by R.N. 8:53:56 Use device set Radial Dx or PCI 8:53:57 ACIST Syringe (84681) opened to sterile field. 8:53:57 Medline Cath Pack ([id number]) opened to sterile field. 8:53:58 Bag Decanter () opened to sterile field. 8:53:59 ACIST Hand Control (40909) opened to sterile field. 8:53:59 ACIST Manifold (28254) opened to sterile field. 8:54:00 Tegaderm 4 x 4 (1626W) opened to sterile field. 8:54:00 MBrace Wrist Support ([id number]) opened to sterile field. 8:54:01 SHEATH 6FR Slender (50-0238) opened to sterile field. 8:54:02 DIAGNOSTIC WIRE .035 260cm J wire (197164) opened to sterile field. 8:54:32 Physician paged 8:55:32 Zero performed for pressure channel P1 8:55:37 Zero performed for pressure channel P1 8:55:39 Zero performed for pressure channel P1 9:: Physician arrived 9:: --------ALL STOP TIME OUT------ 9:: Final Timeout: patient, procedure, and site verified with staff and physician. All members of the team are in agreement. 9::23 Right Radial & Right Groin site verified by team. 9:: Physical assessment completed. ASA score P 3 - A patient with severe systemic disease as per Hunter Araujo MD. 9::28 Sedation plan: IV Moderate Sedation Medication:Versed, Fentanyl 9::56 Versed 1 mg I.V. was administered by Manny Zamorano RN; for sedation; 9:03:31 Fentanyl 50 mcg I.V. was administered by Manny Zamorano RN; for sedation; 9:04:47 Procedure started. 9:04:50 Local anesthetic to right radial artery with Lidocaine 2% by Hunter Araujo MD.INITIAL ACCESS ONLY 9:05:01 Radial Cocktail (Verapomil 2mg/Nitro 400mcg/Heparin 1500units) 1 syringe I.A. was administered by Hunter Araujo MD; for vasodilation; 9:05:02 A 6 Fr Short sheath was inserted into the Right Radial artery 9:05:13 A DIAGNOSTIC Barry 110cm 5 Fr catheter (255798) was advanced over the wire and used for Procedure. 9:06:09 LV gram done using GUIDRY 9:06:12 Injector settings: Ml/sec: 7, Volume: 15, 9:06:18 LV hemodynamics recorded. 9:06:22 EF : 15 % 9:07:45 LCA angiography performed. 9:08:24 Versed 1 mg I.V. was administered by Manny Zamorano RN; for sedation; 9:08:29 Fentanyl 50 mcg I.V. was administered by aMnny Zamorano RN; for sedation; 9::19 Catheter exchanged over wire. 9:09:36 A DIAGNOSTIC AR MOD 5Fr Catheter ([id number]) was advanced over the wire and used for Procedure. 9:10:32 RCA angiography performed. 9:10:33 TR BAND Large ([id number]) opened to sterile field. 9:10:45 Catheter removed. 9:11:08 Sheath removed intact; hemostasis achieved with Mechanical Compression to the Right Radial artery. 9:11:10 Procedure ended.(Physican Out) 9:11:28 Fluoroscopy time 02.50 minutes. 9:11:32 Flurop Dose total: 609 9:11:32 Fluoroscopy dose: 609 mGy 9:11:44 Contrast amount:Isovue 300 57ml. 9:11:48 Sharps counted by scrub and verified by R.N. 9:11:50 Insertion/operative site no bleeding no hematoma. 9:12:04 Post right radial artery:stable, soft, clean and dry 9:12:05 Post Procedure Pulses reassessed and unchanged 9:12:07 Post-procedure physical assessment completed. ASA score P 3 - A patient with severe systemic disease as per Hunter Araujo MD. 9:12:09 Post procedure rhythm: unchanged. 9:12:13 Estimated blood loss: 5 ml 9:12:14 Post procedure instruction explained to patient.Patient verbalizes understanding. 9:12:15 Patient needs reinforcement of post procedure teaching. 9:15:07 Procedure and supply charges have been captured, reviewed, submitted and are correct. 9:15:10 Procedure Complication : No complications 9:15:15 Vital chart was stopped 9:15:17 See physician's report for complete and final results. 9:15:18 Report given to PCU. 9:15:22 Patient transfered to PCU with Stretcher. 9:15:23 Procedure ended. 9:15:23 Full Disclosure recording stopped 9:15:26 End room use (Document Last) Device Usage Item Name Manufacture Quantity Catalog Hospital Part Current Minimal Lot# / Number Charge Number Stock Stock Serial# Code ACIST Acist 1 38331 242856 852198 422715 20 Syringe Medical (73477) Systems Inc Medline Medline 1 [id number] 215918 00704 661293 5 Cath Pack ([id number]) Bag Microtek 1 996771 97679 650376 5 Decanter Medical Inc. () ACIST Hand Acist 1 13666 359565 995103 252498 5 Control Medical (51488) Systems Inc ACIST Acist 1 27073 811699 536420 533399 5 Manifold Medical (20366) Systems Inc Tegaderm 4 3M 1 1626W 903857 666386 753659 5 x 4 (1626W) MBrace Advanced 1 140-0250-00 751386 57418 596612 5 Wrist Vascular Support Dynamics ([id number]) SHEATH 6FR Terumo 1 [id number] 452909 650576 198417 5 Slender (80-1060) DIAGNOSTIC St Jared 1 045956 912716 948108 900146 30 WIRE .035 260cm J wire (122557) DIAGNOSTIC Terumo 1 40-0443 751234 443064 747084 5 Barry 110cm 5 Fr catheter (961495) DIAGNOSTIC Cardinal 1 [id number] 377366 688023 680636 15 AR MOD 5Fr Health Catheter (784113R) TR BAND Terumo 1 [id number] 643835 003495 362233 40 Large ([id number]) Signature Audit [place] Stage Time Signature Unsigned Intra-Procedure 11/13/2018 Messi Burger 9:16:12 AM RT(R) Signatures Monitor : Messi Burger RT Signature : Date : Time : [facility] [address] [place] [place] [address]
[2018-11-11 21:38] LABS: BASOPHILS 0.1 % (0-2); EOSINOPHILS 1.3 % (0-7); HEMATOCRIT 44.5 % (42.0-54.0); HEMOGLOBIN 14.9 g/dL (13.5-17.5); IMMATURE GRANULOCYTES 0.1 % (0-5); LYMPHOCYTES 7.3 % (15-50); MCHC 33.5 g/dL (31.0-37.0); MCV 89.7 fL (80.0-100.0); MEAN PLATELET VOLUME 11.2 fL (7.4-10.4); MONOCYTES 10.2 % (2-11); PLATELET COUNT 153 10x3/uL (130-400); RBC 4.96 10x6/uL (4.20-6.10); WBC 8.8 10x3/uL (4.8-10.8)
[2018-11-11 21:38] LABS: APPEARANCE CLEAR (CLEAR); BILIRUBIN NEGATIVE (NEGATIVE); COLOR YELLOW (YELLOW); GLUCOSE NEGATIVE (NEGATIVE); KETONE NEGATIVE (NEGATIVE); NITRITE NEGATIVE (NEGATIVE); PROTEIN NEGATIVE (NEGATIVE); SPECIFIC GRAVITY 1.015 (1.005-1.020); UROBILINOGEN NORMAL (NORMAL)
[2018-11-11 22:00] LABS: ALBUMIN 3.6 g/dL (3.4-5.0); ANION GAP 11.4 mmol/L (8-16); BILIRUBIN - TOTAL 0.68 mg/dL (0.2-1.3); CALCIUM 8.7 mg/dL (8.5-10.1); CARBON DIOXIDE 31.8 mmol/L (21.0-32.0); CREATININE - SERUM 1.4 mg/dL (0.6-1.3); MAGNESIUM - SERUM 1.8 mg/dL (1.8-2.4); POTASSIUM - SERUM 4.2 mmol/L (3.5-5.1); PROTEIN - SERUM 6.9 g/dL (6.4-8.2); TROPONIN-I 0.03 ng/mL (0.000-0.060)
--- NOTE | 2018-11-11 23:31 | NUR ---
PT ARRIVED TO FLOOR BY BED, NO S/S OF DISTRESS. REPORT TAKEN FROM BRAN DING RN. CALL LIGHT IN REACH. WILL CONTINUE TO MONITOR.
[2018-11-12 00:05] VITALS: BP 142/60; Ht 175.3 cm; Wt 109.1 kg
--- NOTE | 2018-11-12 00:17 | NUR ---
FOLEY ARTIST ASSESSMENT COMPLETED. IV TO L HAND SL. ST PER CM HR 108 WITH PVC'S. LUNGS DIMINISHED IN BASES BILAT. O2 2LNC. VSS. CALL LIGHT WITHIN REACH.
--- NOTE | 2018-11-12 00:17 | NUR ---
PT STATED NEW ONSET OF CHEST PAIN AND SHORTNESS OF BREATH, ADMINISTERED ORDERED SUBLINGUAL TABLET.
--- NOTE | 2018-11-12 02:35 | NUR ---
PT RESTING ON RIGHT SIDE IN BED WITH EYES CLOSED, NO FURTHER COMPLAINTS OF CHEST PAIN. OXYGEN AT 2 LITERS BY NASAL CANNULA, BED IN LOW POSITION. NO S/S OF DISTRESS. CALL LIGHT IN REACH. WILL CTM.
--- NOTE | 2018-11-12 02:57 | NUR ---
PROVIDED PT WITH WARM BLANKET AND ADJUSTED THERMOSTAT TO INSURE PT COMFORT. CALL LIGHT IN REACH.
[2018-11-12 04:00] VITALS: BP 143/57
--- NOTE | 2018-11-12 05:34 | NUR ---
ADMINISTERED ORDERED TYLENOL 500 MG FOR PT TEMPERATURE OF 101.3
--- NOTE | 2018-11-12 07:30 | NUR ---
ALERT AND ORIENTED. DENIES ANY NEEDS. TELEMERTY SHOWS SR. DENIES ANY NEEDS. 02 AT 2L/M PER NC. . SIDE RAILS UP WITH CALL LIGHT IN REACH
--- NOTE | 2018-11-12 07:38 | NUR ---
RN ROUNDING DONE WITH PATIENT HAVING NO NEEDS VOICED AT THIS TIME. ON 2 L PER NC. LEFT HAND PIV SALINE LOCK. IN STREET CLOTHES. 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 ON HEART MONITOR SHOWING SR, HE 72.
[2018-11-12 08:33] VITALS: BP 119/56
[2018-11-12 10:56] LABS: BASOPHILS 0 % (0-2); EOSINOPHILS 0.1 % (0-7); HEMATOCRIT 41.6 % (42.0-54.0); HEMOGLOBIN 13.7 g/dL (13.5-17.5); IMMATURE GRANULOCYTES 0.1 % (0-5); LYMPHOCYTES 7.2 % (15-50); MCH 29.7 pg (26.0-34.0); MCHC 32.9 g/dL (31.0-37.0); MCV 90.2 fL (80.0-100.0); MEAN PLATELET VOLUME 11.8 fL (7.4-10.4); MONOCYTES 14.9 % (2-11); NEUTROPHILS 77.7 % (40-80); PLATELET COUNT 140 10x3/uL (130-400); RBC 4.61 10x6/uL (4.20-6.10); RDW 13.2 % (11.5-14.5); WBC 6.8 10x3/uL (4.8-10.8)
[2018-11-12 11:15] LABS: ANION GAP 13.6 mmol/L (8-16); CALCIUM 8.4 mg/dL (8.5-10.1); CARBON DIOXIDE 28.3 mmol/L (21.0-32.0); CREATININE - SERUM 1.5 mg/dL (0.6-1.3); POTASSIUM - SERUM 3.9 mmol/L (3.5-5.1)
--- NOTE | 2018-11-12 11:21 | NUR ---
DOBUTREX DRIP STARTED AT 5MCG/KG. SR UP WITH CALL LIGHT IN REACH
[2018-11-12 11:57] VITALS: BP 148/60
--- NOTE | 2018-11-12 15:07 | NUR ---
TRANSFERED TO ICU. REPORT GIVEN TO SANDRA FISHER
[2018-11-12 16:23] VITALS: BP 109/52
--- NOTE | 2018-11-12 20:02 | NUR ---
INITIAL REPORT AND ROUNDS COMPLETED. SEE ASSESSMENT.
[2018-11-12 21:28] VITALS: BP 149/73
[2018-11-13 01:19] VITALS: BP 132/58
[2018-11-13 04:57] VITALS: BP 139/67
[2018-11-13 05:56] LABS: BASOPHILS 0 % (0-2); EOSINOPHILS 0 % (0-7); HEMATOCRIT 38.7 % (42.0-54.0); HEMOGLOBIN 12.8 g/dL (13.5-17.5); IMMATURE GRANULOCYTES 0.2 % (0-5); LYMPHOCYTES 12.1 % (15-50); MCH 29.8 pg (26.0-34.0); MCHC 33.1 g/dL (31.0-37.0); MEAN PLATELET VOLUME 11.8 fL (7.4-10.4); MONOCYTES 17.8 % (2-11); NEUTROPHILS 69.9 % (40-80); PLATELET COUNT 126 10x3/uL (130-400); RDW 13.2 % (11.5-14.5); WBC 5.9 10x3/uL (4.8-10.8)
[2018-11-13 06:22] LABS: ALBUMIN 2.9 g/dL (3.4-5.0); ANION GAP 13.9 mmol/L (8-16); BILIRUBIN - TOTAL 0.57 mg/dL (0.2-1.3); CALCIUM 7.8 mg/dL (8.5-10.1); CARBON DIOXIDE 26.6 mmol/L (21.0-32.0); CREATININE - SERUM 1.3 mg/dL (0.6-1.3); POTASSIUM - SERUM 3.5 mmol/L (3.5-5.1); PROTEIN - SERUM 5.9 g/dL (6.4-8.2)
--- NOTE | 2018-11-13 08:29 | NUR ---
ALERT AND ORIENTED X4. RESTING IN BED. CONSENTS SIGNED ON CHART. PRE-OP COMPLETE. TAKEN TO GAME MANAGER VIA BED. CONTINUE PLAN OF CARE AND SAFETY PRECAUTIONS.
[2018-11-13 08:32] VITALS: BP 148/72
--- NOTE | 2018-11-13 09:20 | NUR ---
ARRIVE BACK TO ROOM VIA BED FROM BRICK MAKER. RT WRIST TR BAND CLEAN DRY INTACT. FREE FROM BLEEDING. FREE FROM HEMATOMA. BP-128/68, HR-90 SINUS RHYTHM WITH PVCs, O2-97% WITH 4L NC. SLEEPING, AROUSES TO STIMULI. IV INFUSING ORDERED. DC DISCHARGE ORDER PER . BUMEX DRIP ORDERED TO INFUSE OVERNIGHT. CONTINUE PLAN OF CARE AND SAFETY PRECAUTIONS.
--- NOTE | 2018-11-13 10:00 | NUR ---
BUMEX AND DOBUTAMINE COMPATIBILITY CHECKED. COMPATIBLE AT Y-SITE.
--- NOTE | 2018-11-13 11:28 | NUR ---
BEGIN DEFLATING TR BAND 2ml OF AIR AT A TIME.
[2018-11-13 12:21] VITALS: BP 139/82
[2018-11-13 16:31] VITALS: BP 146/83
--- NOTE | 2018-11-13 19:55 | NUR ---
INITIAL ROUNDS AND ASSESSMENT. PT LETHARGIC AND FEELING POORLY. IVF BUMEX @ 2.5ML/HR AND DOBUTAMINE 16.6ML/HR INFUSING TO RIGHT HAND. PT ALSO HAS NS @ KVO FOR ABT. O2 @ 2L/NC WITH SOB UPON MINIMAL EXERTION. RIGHT WRIST CATH SITE WITH DRESSING C/D/I. PT RESTLESS AND ALL OVER THE BED. ENCOURAGED HIM TO VOID TO URINAL AND TO NOT BE GETTING UP SINCE HE IS SO RESTLESS. WILL MONITOR AND CPOC.
[2018-11-13 21:00] VITALS: BP 146/53
--- NOTE | 2018-11-13 22:54 | NUR ---
RESTING IN BED. CALMER AND FOLLOWING DIRECTIONS. FEELS LIKE HE IS BREATHING BETTER RIGHT NOW. MONITOR AND CPOC.
--- NOTE | 2018-11-14 02:28 | NUR ---
PT RESTLESS, MAKING LOUD NOISE IN HALF AWAKE STATUS. CALLING OUT. ROLLING ALL OVER BED. DIFFICULT TO KEEP HIS IV TO RIGHT HAND SAFE. HE IS STILL RECIEVING BUMEX DRIP AT 2.5ML/HR, DOBUTAMINE DRIP AT 16.6 ML/HR AND IVF @ KVO FOR ABT. O2 @ 2L/NC IN PLACE AND FREQUENTLY HAS TO BE REPLACED BECAUSE PT HAS TAKEN IT OFF AND THROWN IT ON THE FLOOR. PT SAYING HE IS HAVING "WILD" DREAMS BECAUSE HE BELIEVED HE WAS MIXING A LARGE BOWL OF MASHED POTATOES. FREQUENTLY MONITORED AND KEEPING CLOSE TABS ON PATIENT.
[2018-11-14 03:05] VITALS: BP 126/54
[2018-11-14 05:55] VITALS: BP 196/76
[2018-11-14 06:26] LABS: BASOPHILS 0.2 % (0-2); EOSINOPHILS 0.2 % (0-7); HEMATOCRIT 42.1 % (42.0-54.0); HEMOGLOBIN 13.9 g/dL (13.5-17.5); IMMATURE GRANULOCYTES 0.4 % (0-5); LYMPHOCYTES 17.4 % (15-50); MCH 29.8 pg (26.0-34.0); MCV 90.1 fL (80.0-100.0); MEAN PLATELET VOLUME 12.3 fL (7.4-10.4); NEUTROPHILS 64.8 % (40-80); PLATELET COUNT 120 10x3/uL (130-400); RBC 4.67 10x6/uL (4.20-6.10); RDW 12.9 % (11.5-14.5); WBC 4.8 10x3/uL (4.8-10.8)
[2018-11-14 06:46] LABS: ALBUMIN 2.9 g/dL (3.4-5.0); ANION GAP 9.6 mmol/L (8-16); BILIRUBIN - TOTAL 0.35 mg/dL (0.2-1.3); CALCIUM 7.6 mg/dL (8.5-10.1); CARBON DIOXIDE 30.8 mmol/L (21.0-32.0); CREATININE - SERUM 1.2 mg/dL (0.6-1.3); MAGNESIUM - SERUM 1.9 mg/dL (1.8-2.4); POTASSIUM - SERUM 3.4 mmol/L (3.5-5.1); PROTEIN - SERUM 6.3 g/dL (6.4-8.2)
[2018-11-14 08:01] VITALS: BP 95/59
[2018-11-14 11:23] VITALS: BP 122/69
[2018-11-14] MEDS ORDERED: ZITHROMAX500 MG PO (12:52)
[2018-11-14] MEDS ORDERED: ALDACTONE25 MG PO (12:52)
--- NOTE | 2018-11-14 15:23 | NUR ---
ALERT AND ORIENTED X4. STANDING IN ARREGUIN. DISCHARGE INSTRUCTIONS GIVEN VERBALLY AND WRITTEN. DISCHARGE PAPERS SIGNED ON CHART. DC RT HAND IV TIP INTACT. ESCORT TO RIDE VIA WHEELCHAIR. REMAINS FREE FROM INJURY.
--- NOTE | 2018-11-15 15:01 | DS ---
PATIENT:LYNDSEY PAVON :48 MEDICAL RECORD: [id number] DISCHARGE SUMMARY ADMISSION DATE: 11/12/18 DISCHARGE DATE: 11/14/18 FINAL DIAGNOSES: 1. Cardiomyopathy exacerbation. 2. Coronary artery disease. 3. Hypertension. BRIEF HISTORY AND HOSPITAL COURSE: Admitted with volume overload and anginal type symptomatology, underwent angiography to ensure no restenosis of previous placed stenting and this showed patent stents but severe ischemic cardiomyopathy, placed on Dobutrex and Bumex drip. Did well with excellent diuresis and improvement in symptomatology, was started additionally on Aldactone, will be continued as outpatient and will be seen in office back in 3-4 weeks. ACTIVITY: As tolerated. DIET: AHA diet. TRANSINT:[id number] Voice Confirmation ID: [id number] DOCUMENT ID: [id number] ITZEL PURVIS MD at 1501 CC: [id number] DICTATION DATE: 11/14/18 0917 LIFE MANAGER: 11/15/18 0053 DIS IN 11/14/18 [place] [id number] [place] [address]
--- NOTE | 2018-11-15 15:01 | EC ---
PATIENT:LYNDSEY PAVON DATE OF SERVICE: 11/12/18 SEX: M MEDICAL RECORD: [id number] DATE OF : [birth year] LOCATION:D.M2 D.212 AGE OF PATIENT: 68 ADMISSION DATE: 11/12/18 REFERRING PHYSICIAN: INTERPRETING PHYSICIAN: ITZEL PURVIS MD ECHOCARDIOGRAM REPORT ECHO CHARGES 4 ECHO COMPLETE Date: 11/12/18 CLINICAL DIAGNOSIS: ECHOCARDIOGRAPHIC MEASUREMENTS (adult normal given) AC root (d.<3.7cm) 3.0 cm LV Septum d (<1.2 cm> 1.2 cm Valve Excursion 2.1 cm LV Septum (systole) 1.4 cm Left Atria (s.<4.0cm> 5.3 cm LVPW d(<1.2cm) 1.4 cm RV (d.<2.3cm) 3.2 cm LVPW (sytole) 1.8 cm LV diastole(<5.6CM) 6.4 cm MV E-F(>70mm/sec) cm LV systole 5.2 cm LVOT Diameter 2.0 cm MV exc.(>10mm) cm Est.ejection fraction (50-75%) % DOPPLER: LVIT cm/sec A 81.0 cm/sec E 135 cm/sec LA cm/sec RVSP 48.1 mmHg LVOT 181 cm/sec AOP1/2T m/s Asc. Ao 185 cm/sec RVOT 79.0 cm/sec RA cm/sec PA 147 cm/sec AV Gradient Peak 14.0 mmHg AV Mean 8.1 mmHg AV Area 3.2 cm MV Gradient Peak 9.7 mmHg MV Mean 3.7 mmHg MV Area cm COMMENTS: Services Account Manager: 1 SHRAVAN CLARKOE Harness Brusher: 3 Dr. Crocker TAPE# PACS Pericardial Effusion N DATE OF SERVICE: Adequate 2D Echo, Color Flow, Spectral Doppler, and M-Mode LVH is present. LV internal dimensions dilated. LV is globally hypokinetic with reduced EF, estimated EF 20% to 25%. Aortic valve sclerosis without stenosis by Doppler interrogation. Left atrium likewise is dilated 5.3 cm. Mitral valve is thickened. Bsnf-mc-izowlxre MR. Right-sided chambers are normal. Mild TR. ECHOCARDIOGRAM REPORT [id number] LYNDSEY PAVON TRANSINT:[id number] Voice Confirmation ID: [id number] DOCUMENT ID: [id number] ITZEL PURVIS MD at 1501 CC: [id number] DICTATION DATE: 11/12/181845 BRACELET MAKER NOVELTY: 11/13/18 0229 DIS IN 11/14/18 [place] [id number] [place] [id number]
--- NOTE | 2018-11-15 15:01 | OP ---
PATIENT NAME: LYNDSEY PAVON MEDICAL RECORD: [id number] :48 LOCATION:D.M2 D.2123 ADMISSION DATE:11/12/18 SURGEON: ITZEL PURVIS MD DATE OF OPERATION: 11/13/2018 PROCEDURE: Left heart catheterization, selective coronary angiography, right radial approach. CATHETERS: [place] catheter and radial sheath. The procedure was well tolerated. The patient was returned to the [place]. Sheath was removed. TR band was placed. FINDINGS: Left ventriculography in 30-degree GUIDRY view shows severe global hypokinesis. EF is estimated at 15% to 20%. CORONARY ANATOMY: LEFT MAIN: Left main is free of disease. LAD: Area of previous stenting is widely patent. No progression of wyand[place] disease. CIRCUMFLEX: Area of previous stenting is widely patent. No progression of wy[place] disease. RIGHT CORONARY ARTERY: Nondominant with some disease, not amenable to intervention. IMPRESSION: Severe cardiomyopathy. We will place on Bumex drip. Continue Dobutrex. TRANSINT:[id number] Voice Confirmation ID: [id number] DOCUMENT ID: [id number] ITZEL PURVIS MD at 1501 CC: [id number] DICTATION DATE: 11/13/18 0918 LEAD PRINCIPAL TECHNICAL ARCHITECT: 11/13/18 1053 DIS IN 11/14/18 [place] [id number] [place] [address]
--- NOTE | 2018-11-15 15:01 | CN ---
PATIENT NAME:LYNDSEY PAVON MEDICAL RECORD: [id number] : 48 LOCATION:D. D.2123 ADMIT DATE: 11/12/18 ACCOUNT: [id number] CONSULTING PHYSICIAN: ITZEL PURVIS MD REFERRING PHYSICIAN: KARY STUART MD DATE OF CONSULTATION: 11/12/2018 HISTORY OF PRESENT ILLNESS: A 68-year-old gentleman with history of extensive cardiac history; has history of coronary artery disease, status post intervention on multiple occasions; history of ischemic cardiomyopathy, status post ICD placement. Last 3 days, he been having marked volume overload type symptomatology with dyspnea on exertion progressing to alexi orthopnea and PND. He has had similar episodes in the past. He feels this may be related to, from his standpoint, ischemic focus. No recent medical noncompliance. No dietary indiscretions discussions by his report. PAST MEDICAL HISTORY: Includes; 1. History of hypertension. 2. Cardiomyopathy as described above. ALLERGIES: LISINOPRIL, MORPHINE, METOPROLOL, CLOPIDOGREL. MEDICATIONS: Regularly includes carvedilol 3.125 every day, Avapro 150 b.i.d., aspirin 81 every day, furosemide 40 every day. SOCIAL HISTORY: Nondrinker. No illicit drug use. No set exercise program. He does try to stay active. REVIEW OF SYSTEMS: The patient reports easy bruising but reports no swollen glands. The patient reports no fever, no night sweats, no significant weight gain, no significant weight loss. No significant exercise tolerance. The patient reports no dry eyes, no irritation, no vision change. Patient reports no difficulty hearing and no ear pain. Patient reports no frequent nose bleeds or nose and sinus problems. Patient reports on arm pain on exertion. No shortness of breath while lying down. No history of heart murmur. Patient reports no cough, no wheezing or coughing up blood. Patient reports no abdominal pain, no vomiting. Normal appetite. No diarrhea and not vomiting blood. No nausea and no constipation. Patient reports no incontinence. No difficulty urinating. No hematuria. No increased frequency. Patient reports no muscle aches. No weakness, no arthralgias, no back pain. No swelling of the extremities. Patient reports no abnormal mole, no jaundice, no rashes. Reports no loss of consciousness. No weakness and no numbness. No seizures, dizziness, or headaches. The patient reports no depression, no sleep disturbance, feeling safe in a relationship and no alcohol abuse. Patient reports on fatigue. Reports no runny nose or sinus pressure. No itching, no hives, and no frequent sneezing. PHYSICAL EXAMINATION: GENERAL: Pleasant, middle-aged gentleman in no acute distress. VITAL SIGNS: Blood pressure 119/56, pulse 81 and regular. HEENT: Normocephalic, atraumatic. NECK: No bruits noted. HEART: Regular. S3 gallop is noted, II/ systolic ejection murmur. LUNGS: Diminished air excursion bilaterally at bases. ABDOMEN: Soft, nontender. CONSULT REPORT [id number] LYNDSEY PAVON EXTREMITIES: Pulses are well preserved, 2+. There is no edema. IMPRESSION: Acute coronary syndrome, volume overload, placed on Dobutrex for the short term. PLAN: For diagnostic angiography in the a.m. TRANSINT:[id number] Voice Confirmation ID: [id number] DOCUMENT ID: [id number] ITZEL PURVIS MD at 1501 CC: [id number] DICTATION DATE: 11/12/18 1104 PREMIUM NOTE INTEREST CALCULATOR CLERK: 11/12/18 1239 DIS IN 11/14/18 [place] [address] [place] [address]
--- NOTE | 2018-11-16 15:23 | MORECARE ---
CASE MANAGEMENT DISCHARGE SUMMARY PATIENT: LYNDSEY PAVON UNIT: [id number] ADM DATE: 11/12/18 AGE: 68 : 49 SEX: M ROOM/BED: D.2123 AUTHOR: ABRIL PATTON PHYSICIAN: REFERRING PHYSICIAN: KARY STUART MD DATE OF SERVICE: 11/16/18 Discharge Plan Patient Name: LYNDSEY PAVON Facility: [facility]:[place] : 1950 Planned Disposition: Home Anticipated Discharge Date: 11/14/18 Discharge Date: 11/14/2018 Expected LOS: 2 Initial Reviewer: [email or web address] Initial Review Date: 11/16/2018 Generated: 11/16/18 4:23 pm Patient Name: LYNDSEY PAVON Page [id number] at 1523 All edits/amendments must be made on the electronic document DICTATION DATE: 11/16/18 1522 MANAGER NON PROFIT: BJ 11/16/18 1522 RPT#: [id number] DC DATE:11/14/18 STATUS: DIS IN [facility] [address] [place] [address] END OF REPORT
--- NOTE | 2018-11-16 15:31 | MORECARE ---
CASE MANAGEMENT DISCHARGE SUMMARY PATIENT: LYNDSEY PAVON UNIT: [id number] ADM DATE: 11/12/18 AGE: 68 : 49 SEX: M ROOM/BED: D.2123 AUTHOR: POOJADOC PHYSICIAN: REFERRING PHYSICIAN: KARY STUART MD DATE OF SERVICE: 11/16/18 Discharge Plan Patient Name: LYNDSEY PAVON Facility: [facility]:[place] : 1950 Planned Disposition: Home Anticipated Discharge Date: 11/14/18 Discharge Date: 11/14/2018 Expected LOS: 2 Initial Reviewer: BASIL Initial Review Date: 11/16/2018 Generated: 11/16/18 4:31 pm Comments DCP- Discharge Planning Updated by [email or web address]: Nura Nieves on 11/16/18 2:[address] Patient Name: LYNDSEY PAVON Admission Status: ER Accout number: [id number] Admission Date: 11-12-2018 : 1950 Admission Diagnosis:ANGINA PECTORIS, UNSPECIFIED Attending: KARY STUART Current LOS: 2 Anticipated DC Date: 11-14-2018 Planned Disposition: Home Primary Insurance: MEDICAID [place] PENDING LATE ENTRY FROM 11-14-18. Discharge Planning Comments: CM MET WITH PT IN ROOM TO DISCUSS DISCHARGE PLANNING AND NEEDS. PT REPORTS LIVING AT HOME INDEPENDENTLY AND ALONE. PT HAS PRIVATELY PURCHASED MEDICAL EQUIPMENT WITH NO MEDICAL EQUIPMENT PROVIDER PREFERENCE; PT REPORTS HAVING "EVERYTHING". PT HAS NO OUTSIDE SERVICES ASSISTING IN THE HOME. CM DISCUSSED AVAILABILITY OF HOME HEALTH, REHAB SERVICES AND MEDICAL EQUIPMENT. PT DENIES DISCHARGE NEEDS, REPORTS HIS SON WILL PICK HIM UP FOR DISCHARGE HOME. HANDBAG OPERATOR NURSE NOTIFIED. Seaming Inspector: Nura Nieves DCPIA - Discharge Planning Initial Assessment Updated by [email or web address]: Nura Nieves on 11/16/18 3:23 pm * Is the patient Alert and Oriented? Yes * How many steps to enter\\exit or inside your home? NONE * PCP NONE - [facility] REFERRED * Pharmacy [facility] * Preadmission Environment Home Alone * ADLs Independent * Equipment Bedside Commode Cane Nadia Lift Oxygen Walker Wheelchair * Other Equipment HOME OXYGEN CONCENTRATOR - NOT USING NO MEDICAL EQUIPMENT PROVIDER PREFERENCE * List name and contact numbers for known caregivers / representatives who currently or will assist patient after discharge: NEAL ENG, [place], * Verbal permission to speak to the caregivers and representatives has been obtained from the patient. N/A * Community resources currently utilized None * Please name any agencies selected above. NONE * Additional services required to return to the preadmission environment? No * Can the patient safely return to the preadmission environment? Yes * Has this patient been hospitalized within the prior 30 days at any hospital? No Last DP export: 11/16/18 2:23 p Patient Name: LYNDSEY PAVON Page [phone] at 1531 All edits/amendments must be made on the electronic document DICTATION DATE: 11/16/181529 ROTOR COIL TAPER: BJ 11/16/181529 RPT#: [id number] DC DATE:11/14/18 STATUS: DIS IN [facility] [address] [place] [address] END OF REPORT
== END 2018-11-14 15:24 | disposition home or self-care (01) | DRG 287 ==
LOC: D.ER 21:11 → D.M2 22:58 → OBSVTIME 22:58 → D.M2 11-12 13:13
PROVIDERS: Family Medicine; Internal Medicine Interventional Cardiology; ADMIT Family Medicine
PROC: B2151ZZ Fluoroscopy of Left Heart using Low Osmolar Contrast (ICD-10-PCS; 2018-11-13)
PROC: 4A023N7 Measurement of Cardiac Sampling and Pressure, Left Heart, Percutaneous Approach (ICD-10-PCS; 2018-11-13)
PROC: B2111ZZ Fluoroscopy of Multiple Coronary Arteries using Low Osmolar Contrast (ICD-10-PCS; principal; 2018-11-13 08:25)
DX: I25.5 Ischemic cardiomyopathy (principal); I25.119 Atherosclerotic heart disease of native coronary artery with unspecified angina pectoris; I11.0 Hypertensive heart disease with heart failure; I50.9 Heart failure, unspecified; L40.9 Psoriasis, unspecified

== ENCOUNTER 2019-01-29 08:11 | Inpatient (IN) | payer MEDICAID ==
[~2019-01-29] VITALS: Ht 177.8 cm; Wt 108.9 kg
--- NOTE | ~2019-01-29 | CN ---
PATIENT NAME:LYNDSEY MATOS MEDICAL RECORD: [id number] : 48 LOCATION:D.MS Moreno2238 ADMIT DATE: 01/29/19 ACCOUNT: [id number] CONSULTING PHYSICIAN: GRIS REYNAGA MD REFERRING PHYSICIAN: MYA NICK MD DATE OF CONSULTATION: 01/30/2019 CARDIOLOGY CONSULTATION DIAGNOSES: 1. Preoperative evaluation. 2. Abnormal ECG. 3. Coronary artery disease. 4. Previous multivessel percutaneous transluminal coronary angioplasty stent. 5. Cardiomyopathy, ischemic. 6. Hypertension. 7. Hyperlipidemia. HISTORY OF PRESENT ILLNESS: Mr. Matos presents with no cardiac complaints. He presents with a groin pain on the left. He is found to have an abscess. He has not undergone cardiac intervention or cardiac catheterization in months. He has no cardiac complaints. He does have an EKG is compatible with ongoing ischemia in the lateral leads; however, this is unchanged from previous EKGs even after his last stenting. He has a mild cardiomyopathy; however, has had no heart failure symptomatology. He has had no anginal symptomatology. PHYSICAL EXAMINATION: GENERAL APPEARANCE: Well-nourished, well-developed, appears stated age. Level of distress, comfortable. PSYCHIATRIC: Mental status, alert, normal affect. Orientation, oriented to time, place and person. EYES: Lids and conjunctiva, noninjected. No discharge, no pallor. ENT: Lips, teeth, gums, normal dentition. Oropharynx, no cyanosis, no pallor. NECK: Carotid arteries, bilateral normal upstroke, no bruits, no thrills. JUGULAR VEINS: No jugular venous pressure or distention. CERVICAL LYMPH NODES: Nontender, nonenlarged. THYROID: Not enlarged. Nontender. No nodules. LUNGS: Respiratory effort, unlabored. CHEST: Normal curvature. No thoracic deformity. No chest wall tenderness. Percussion, resonant. Auscultation, clear. No wheezes, no rales, no rhonchi. CARDIOVASCULAR: Precordial exam, nondisplaced. No heaves or pericardial thrills. Rate and rhythm, regular. Heart sounds, normal S1, normal S2. No S3, no gallop, no rub. Systolic murmur, not heard. Diastolic murmur, not heard. EXTREMITIES: No cyanosis, no edema. Peripheral pulses, full and equal in all extremities, except as noted. No bruits appreciated. ABDOMEN: Soft, nondistended. Normal aorta. No bruit. Nontender. No masses. Liver, nontender, no hepatomegaly. Spleen, nontender, no splenomegaly. MUSCULOSKELETAL: No joint tenderness. No joint swelling. No erythema. NEUROLOGICAL: Normal gait, normal strength, normal tone. SKIN: Warm and dry. OVERALL IMPRESSION: Abnormal ECG, but stable, no cardiac symptomatology, no anginal symptomatology, no heart failure symptomatology, proceed with surgery at low cardiac risk. No other cardiac workup treatment is necessary prior to surgery. CONSULT REPORT [id number] LYNDSEY MATOS TRANSINT:[id number] Voice Confirmation ID: [id number] DOCUMENT ID: [id number] GRIS REYNAGA MD CC: [id number] DICTATION DATE: 01/30/19 1538 BATTERY ASSEMBLER PLASTIC: 01/30/19 1620 ADM IN [facility] [address] [place] [address]
[~2019-01-29 08:11] MED LIST changes: +ALDACTONE25 MG PO; +ZITHROMAX500 MG PO
[2019-01-29 08:34] LABS: BASOPHILS 0.1 % (0-2); EOSINOPHILS 0.6 % (0-7); HEMOGLOBIN 13.8 g/dL (13.5-17.5); IMMATURE GRANULOCYTES 0.3 % (0-5); MCH 30.1 pg (26.0-34.0); MCHC 33.7 g/dL (31.0-37.0); MCV 89.5 fL (80.0-100.0); MEAN PLATELET VOLUME 11.7 fL (7.4-10.4); MONOCYTES 9.9 % (2-11); NEUTROPHILS 81.1 % (40-80); RBC 4.58 10x6/uL (4.20-6.10); RDW 13.6 % (11.5-14.5); WBC 15.5 10x3/uL (4.8-10.8)
[2019-01-29 08:47] LABS: ALBUMIN 2.9 g/dL (3.4-5.0); ANION GAP 14.9 mmol/L (8-16); BILIRUBIN - TOTAL 1.03 mg/dL (0.2-1.3); CALCIUM 8.5 mg/dL (8.5-10.1); CARBON DIOXIDE 25.4 mmol/L (21.0-32.0); CREATININE - SERUM 1.2 mg/dL (0.6-1.3); PLATELET COUNT 181 10x3/uL (130-400); POTASSIUM - SERUM 4.3 mmol/L (3.5-5.1)
[2019-01-29 09:18] VITALS: BP 136/78
--- NOTE | 2019-01-29 09:19 | NUR ---
SAT DECREASED TO 90 AFTER DILAUDID, PLACED ON O2 2LPM, SAT INCREASED TO 97
[2019-01-29 10:29] VITALS: BP 117/70
--- NOTE | 2019-01-29 11:00 | NUR ---
PT ADMITTED TO ROOM 2238 VIA STRETCHER FROM ER. ALERT AND ORIENTED. IV TO LEFT WRIST WITH NS @ 200ML/HR INFUSING VIA PUMP. SITE WITHOUT REDNESS OR EDEMA. LEFT GROIN RED, AND WARM TO TOUCH. PT REPORTS INCREASED REDNESS, TENDERNESS AND HEAT X 3 DAYS. REPORTS PAIN TO SITE 02/08 AT THIS TIME. ORIENTED TO ROOM, CL AND BED CONTROLS. DISCUSSED MEAL STATUS AND BEING NPO AFTER MIDNIGHT TONIGHT FOR PROCEDURE ON 01/30/19. PT DENIES QUESTIONS AT THIS TIME. CL WITHIN REACH. ENCOURAGED TO CALL WITH NEEDS. WILL CONTINUE TO MONITOR.
[2019-01-29 11:12] VITALS: BP 138/67; BMI 34.5
[2019-01-29 17:30] VITALS: BP 151/63
--- NOTE | 2019-01-29 19:15 | NUR ---
RECIEVED REPROT, ASSUMED CARE, CALL LIGHT IN REACH, BED LOWEST POSITION, DENIES NEEDS, WILL CONTINUE POC
[2019-01-29 20:00] VITALS: BP 109/76
[2019-01-30] VITALS: BP 109/48
[2019-01-30] MEDS ORDERED: INDOCIN25 MG PO (00:17)
[2019-01-30 04:00] VITALS: BP 95/61
--- NOTE | 2019-01-30 06:10 | NUR ---
URINE OUTPUT FOR TONIGHT 100ML, BLADDER SCANNED MAX 209ML IN BLADDER
[2019-01-30 06:41] LABS: BASOPHILS 0.1 % (0-2); EOSINOPHILS 1.5 % (0-7); HEMATOCRIT 36.8 % (42.0-54.0); IMMATURE GRANULOCYTES 0.2 % (0-5); LYMPHOCYTES 13.1 % (15-50); MCH 29.9 pg (26.0-34.0); MCHC 32.6 g/dL (31.0-37.0); MEAN PLATELET VOLUME 11.5 fL (7.4-10.4); MONOCYTES 11.7 % (2-11); NEUTROPHILS 73.4 % (40-80); PLATELET COUNT 157 10x3/uL (130-400); RBC 4.01 10x6/uL (4.20-6.10); RDW 13.5 % (11.5-14.5); WBC 12.2 10x3/uL (4.8-10.8)
[2019-01-30 06:45] LABS: ANION GAP 10.6 mmol/L (8-16); CALCIUM 7.9 mg/dL (8.5-10.1); CARBON DIOXIDE 28.7 mmol/L (21.0-32.0); POTASSIUM - SERUM 4.3 mmol/L (3.5-5.1)
[2019-01-30 06:47] LABS: CREATININE - SERUM 2.2 mg/dL (0.6-1.3)
[2019-01-30 06:59] LABS: MCV 91.8 fL (80.0-100.0)
--- NOTE | 2019-01-30 07:40 | NUR ---
PT RESTING IN BED, EYES CLOSED. RESPIRATIONS EVEN AND UNLABORED. AROUSES TO VOICE. PT ALERT AND ORIENTED. ABCESS TO LEFT HIP/GROIN AREA. SCHEDULED FOR AN I&D TODAY. PT HAS PACEMAKER. NO C/O PAIN. NO S/S OF ACUTE DISTRESS NOTED. IV TO LEFT HAND, NS INFUSING @ 200 ML/HR. PT DENIES ANYTHING FURTHER AT THIS TIME. CALL LIGHT IN REACH. WILL CONTINUE TO MONITOR. TRISHA ALARM ON AND WORKING.
[2019-01-30 09:20] VITALS: BP 116/44
--- NOTE | 2019-01-30 15:31 | NUR ---
I have reviewed this patient and I concur with the Shift Assessment completed by the Licensed Practical Nurse today this shift.
[2019-01-30 15:39] VITALS: Ht 177.8 cm; Wt 108.9 kg
[2019-01-30 17:09] LABS: APPEARANCE CLEAR (CLEAR); BILIRUBIN NEGATIVE (NEGATIVE); COLOR YELLOW (YELLOW); GLUCOSE NEGATIVE (NEGATIVE); KETONE NEGATIVE (NEGATIVE); NITRITE NEGATIVE (NEGATIVE); PROTEIN TRACE mg/dL (NEGATIVE); SPECIFIC GRAVITY 1.015 (1.005-1.020); UROBILINOGEN NORMAL (NORMAL)
[2019-01-30 17:10] VITALS: BP 104/53
--- NOTE | 2019-01-30 17:40 | NUR ---
PT TAKEN TO SURGERY FOR I&D.
[2019-01-30 18:58] VITALS: BP 118/63
[2019-01-30 20:00] VITALS: BP 118/63
[2019-01-31] VITALS (7 sets, daily range): BP systolic 99–136; BP diastolic 48–100
--- NOTE | 2019-01-31 02:40 | NUR ---
REC'D AT [facility]. OF SHIFT EYES CLOSED RESP DEEP AND EVEN. DRSG. DRY AND INTACT TO LEFT GROIN AREA.WILL CONTINUE TO MONITOR FOR ANY CHGES AND FOLLOW CURRENT PLAN OF CARE.
--- NOTE | 2019-01-31 04:58 | NUR ---
I have reviewed this patient and I concur with the Shift Assessment completed by the Licensed Practical Nurse today this shift.
[2019-01-31 07:33] LABS: ANION GAP 13.2 mmol/L (8-16); CALCIUM 8.1 mg/dL (8.5-10.1); CARBON DIOXIDE 25.3 mmol/L (21.0-32.0); CREATININE - SERUM 2.4 mg/dL (0.6-1.3); MAGNESIUM - SERUM 2.4 mg/dL (1.8-2.4); POTASSIUM - SERUM 4.5 mmol/L (3.5-5.1); VANCOMYCIN - RANDOM 16.5 ug/mL (10.0-20.0)
[2019-01-31 07:37] LABS: BASOPHILS 0.1 % (0-2); EOSINOPHILS 3.5 % (0-7); HEMATOCRIT 37.4 % (42.0-54.0); HEMOGLOBIN 12.3 g/dL (13.5-17.5); IMMATURE GRANULOCYTES 0.2 % (0-5); LYMPHOCYTES 12.9 % (15-50); MCHC 32.9 g/dL (31.0-37.0); MCV 91.2 fL (80.0-100.0); MONOCYTES 13.4 % (2-11); NEUTROPHILS 69.9 % (40-80); PLATELET COUNT 186 10x3/uL (130-400); RDW 13.5 % (11.5-14.5)
--- NOTE | 2019-01-31 09:07 | NUR ---
PT LAYING IN BED RESTING. DR. CHACON IN ROOM REMOVING DRSG TO L GROIN. CHANGED WET TO DRY DRSG. PT C/O PAIN AT A 9/10 ON A 0-10 PAIN SCALE. NORCO GIVEN PO. A/O X 4. UP AB MARTIN. L HAND IV WITH NS @ 200. ROOM AIR. VITALS STABLE. TOOK MEDS WITHOUT DIFFICULTY. RADIAL/PEDAL PULSES 2+ NATALIIA/EQUAL. HAND STRENGTH STRONG/EQUAL. HEART RRR. LUNGS CLEAR. DENIES FURTHER CONCERNS AT THIS TIME. BED LOWERED AND LOCKED. CL IN REACH. WILL CPOC.
--- NOTE | 2019-01-31 09:48 | NUR ---
PER DR Kenji CHOWDHURY'S NOTES, DYAN FRYE, NO OTHER NEEDS VOICED FROM PT CONTINUE WITH PLAN OF CARE
--- NOTE | 2019-01-31 11:12 | NUR ---
ASSISTED PT TO STAND AT SIDE OF BED. PT USED URINAL WITHOUT DIFFICULTY. URINE DARK/ERICA. NO FURTHER CONCERNS AT THIS TIME. ASSISTED PT UP INTO BED. WILL CPOC.
--- NOTE | 2019-01-31 14:45 | NUR ---
ASSISTED PT TO CHAIR AT BEDSIDE.
--- NOTE | 2019-01-31 17:04 | NUR ---
CALL EUGENE CALDERA AT [phone] TOMORROW 02/01/2019 BEFORE DRESSING CHANGE. EUGENE WOULD LIKE TO BE PRESENT FOR DRESSING CHANGE.
--- NOTE | 2019-01-31 17:14 | MORECARE ---
CASE MANAGEMENT DISCHARGE SUMMARY PATIENT: LYNDSEY PAVON UNIT: [id number] ADM DATE: 01/29/19 AGE: 68 : 49 SEX: M ROOM/BED: D.2238 AUTHOR: ABRIL PATTON PHYSICIAN: REFERRING PHYSICIAN: MYA NICK MD DATE OF SERVICE: 01/31/19 Discharge Plan Patient Name: LYNDSEY PAVON Facility: [facility]:[place] : 1950 Planned Disposition: Home Anticipated Discharge Date: Discharge Date: Expected LOS: Initial Reviewer: [email or web address] Initial Review Date: 01/31/2019 Generated: 01/31/19 6:14 pm Patient Name: LYNDSEY PAVON Page [id number] at 1714 All edits/amendments must be made on the electronic document DICTATION DATE: 01/31/191713 ASBESTOS MICROSCOPIST: BJ 01/31/191713 RPT#: [id number] DC DATE: STATUS: ADM IN [facility] [address] [place] [address] END OF REPORT
--- NOTE | 2019-01-31 17:25 | MORECARE ---
CASE MANAGEMENT DISCHARGE SUMMARY PATIENT: LYNDSEY PAVON UNIT: [id number] ADM DATE: 01/29/19 AGE: 68 : 49 SEX: M ROOM/BED: D.2238 AUTHOR: POOJA,DOC PHYSICIAN: REFERRING PHYSICIAN: MYA NICK MD DATE OF SERVICE: 01/31/19 Discharge Plan Patient Name: LYNDSEY PAVON Facility: [facility]:[place] : 1950 Planned Disposition: Home Anticipated Discharge Date: Discharge Date: Expected LOS: Initial Reviewer: [email or web address] Initial Review Date: 01/31/2019 Generated: 01/31/19 6:25 pm Comments DCP- Discharge Planning Updated by [email or web address]: Jacqueline Jauregui on 01/31/19 4:[address] Patient Name: LYNDSEY PAVON Admission Status: ER Accout number: [id number] Admission Date: 01-29-2019 : 1950 Admission Diagnosis:CELLULITIS OF LEFT LOWER LIMB Attending: MYA NICK Current LOS: 2 Anticipated DC Date: Planned Disposition: Home Primary Insurance: MEDICAID [place] PENDING Discharge Planning Comments: CM met with patient to complete initial dc planning assessment. CM educated patient on the CM role and verbal consent given by patient to complete assessment. Patient lives at home alone. At discharge patient plans to return and feels this is a safe discharge. CM discussed availability of home health. He is uninsured and does not have a PCP. He states his friend, Pamela, can do his dressing changes and she is here and agrees. I spoke with patient's nurse (Radha) and informed her that Pamela would like called before tomorrow morning's dressing change to learn. CM will continue to follow and will assist as needed with dc plans/needs. Board Mill Supervisor: Jacqueline Jauregui DCPIA - Discharge Planning Initial Assessment Updated by [email or web address]: Jacqueline Jauregui on 01/31/19 5:18 pm * Is the patient Alert and Oriented? Yes * How many steps to enter\exit or inside your home? 5/0 * PCP None * Pharmacy [facility] * Preadmission Environment Home Alone * ADLs Partial Dependent * Partial ADLs (Assistance needed) Ambulation * Equipment Bedside Commode Cane Oxygen Walker Wheelchair * List name and contact numbers for known caregivers / representatives who currently or will assist patient after discharge: Pamela Duncan - odessa - [phone] * Verbal permission to speak to the caregivers and representatives has been obtained from the patient. Yes * Community resources currently utilized None * Additional services required to return to the preadmission environment? No * Can the patient safely return to the preadmission environment? Yes * Has this patient been hospitalized within the prior 30 days at any hospital? No Last DP export: 01/31/19 4:14 pm Patient Name: LYNDSEY PAVON Page [id number] at 1725 All edits/amendments must be made on the electronic document DICTATION DATE: 01/31/191723 EXTENSION DIVISION DIRECTOR: BJ 01/31/191723 RPT#: [id number] DC DATE: STATUS: ADM IN [facility] [address] [place] [address] END OF REPORT
--- NOTE | 2019-01-31 18:15 | NUR ---
I have reviewed this patient and I concur with the Shift Assessment completed by the Licensed Practical Nurse today this shift.
--- NOTE | 2019-01-31 20:17 | NUR ---
REC'D AT [facility] OF SHIFT STANDING AT BEDSIDE URINATING.DRSG RIGHT GROIN INTACT.ABDOMEN OBESE/FIRM NON-PALABLE BOWEL SOUNDS HYPOACTIVE ALL QUAD DENIES NAUSEA WILL CONTINUE TO MONITOR FOR ANY CHGES AND FOLLOW CURRENT PLAN OF CARE
--- NOTE | 2019-02-01 03:18 | NUR ---
0000) CONTINUES TO WORRY ABOUT IV BEEPING ANGRY STATES THEY SHOULD HAVE DONE SOMETHING ABOUT IT 3 DAYS AGO.0300 ENTERED ROOM HAD PULLED IV APART FLUID RUNNING IN FLOOR.TUBING CHGED.EXCELLENT BLOOD RETURN. 'STATES HOW AM I GOING TO GET MY MEDICINE WITH BLOOD UP IN THERE. EXPLAINED THAT LETS YOU KNOW ITS IN THE VEIN.STATES YEAH DO YOU WHAT YOU'RE DOING/ EXPLAINED YES SIR I DO THAT'S YOU'RE HERE.0330 PULLED IV OUT RESITED BY CHARGE NURSE.REGAN RN #20 LEFT FOREARM X1 STICK. ON ENTERING ROOM HAD PULLED DRSG OFF STATES THEY NEVER PUT IT ON RIGHT TO START WITH
[2019-02-01 04:39] VITALS: BP 196/108
--- NOTE | 2019-02-01 07:26 | NUR ---
I CONCUR WITH INSOLE AND HEEL STIFFENER ASSESSMENT.
--- NOTE | 2019-02-01 07:30 | NUR ---
REC'D IN BED AWAKE AND ALERT. RESP EVEN AND UNLABORED WITH NO DISTRESS NOTED. CAN EXPRESS NEEDS AND WANTS. NO C/O NOTED OR VOICED. ASSESSMENT COMPLETED. C/L IN REACH AT BEDSIDE
[2019-02-01 07:38] LABS: BASOPHILS 0.3 % (0-2); EOSINOPHILS 6.4 % (0-7); HEMATOCRIT 36.8 % (42.0-54.0); HEMOGLOBIN 12.3 g/dL (13.5-17.5); IMMATURE GRANULOCYTES 0.3 % (0-5); LYMPHOCYTES 18.7 % (15-50); MCH 30.5 pg (26.0-34.0); MCHC 33.4 g/dL (31.0-37.0); MCV 91.3 fL (80.0-100.0); MEAN PLATELET VOLUME 11.8 fL (7.4-10.4); MONOCYTES 13.3 % (2-11); PLATELET COUNT 170 10x3/uL (130-400); RBC 4.03 10x6/uL (4.20-6.10); RDW 13.6 % (11.5-14.5)
--- NOTE | 2019-02-01 07:38 | NUR ---
WALKING ROUNDS PATIENT STATES MY IV FELL OUT AGAIN. WITH A BIG SMILE ON HIS FACE.REPORTED PATIENT BEHAVIOR TO NURSE [facility] [employer]ITY
[2019-02-01 07:52] LABS: ANION GAP 14.3 mmol/L (8-16); CALCIUM 8.2 mg/dL (8.5-10.1); CARBON DIOXIDE 24.1 mmol/L (21.0-32.0); CREATININE - SERUM 1.8 mg/dL (0.6-1.3); MAGNESIUM - SERUM 2.5 mg/dL (1.8-2.4); POTASSIUM - SERUM 4.4 mmol/L (3.5-5.1); VANCOMYCIN - RANDOM 17.9 ug/mL (10.0-20.0)
[2019-02-01 08:11] LABS: WBC 7.5 10x3/uL (4.8-10.8)
[2019-02-01 09:35] VITALS: BP 150/75
--- NOTE | 2019-02-01 11:20 | NUR ---
DRESSING TO CHANGE TO LEFT GROIN AT THIS TIME PER ORDERS. C/L IN REACH AT BEDSIDE
[2019-02-01] MEDS ORDERED: CLEOCIN HCL300 MG PO (12:14)
[2019-02-01] MEDS ORDERED: FLORAJEN3 CAPS460 MG PO (12:14)
[2019-02-01] MEDS ORDERED: NORCO-10 PO (12:15)
--- NOTE | 2019-02-01 12:51 | MORECARE ---
CASE MANAGEMENT DISCHARGE SUMMARY PATIENT: LYNDSEY PAVON UNIT: [id number] ADM DATE: 01/29/19 AGE: 68 : 49 SEX: M ROOM/BED: D.2238 AUTHOR: POOJADOC PHYSICIAN: REFERRING PHYSICIAN: MYA NICK MD DATE OF SERVICE: 02/01/19 Discharge Plan Patient Name: LYNDSEY PAVON Facility: [facility]:[place] : 1950 Planned Disposition: Home Anticipated Discharge Date: Discharge Date: Expected LOS: Initial Reviewer: [email or web address] Initial Review Date: 01/31/2019 Generated: 02/01/19 1:51 pm Comments DCP- Discharge Planning Updated by [email or web address]: Jacqueline Jauregui on 02/01/19 11:[address] Patient Name: LYNDSEY PAVON Encounter No: [id number] : 1950 Primary Insurance: MEDICAID [place] PENDING Anticipated DC Date: Planned Disposition: Home External Planned Provider: : DCP follow-up note: Patient and family in agreement with discharge plan. No changes to plan. Declines home health. His primary nurse will instruct his friend on wound packing. Case management will follow and assist as needed. Jacqueline Jauregui DCP- Discharge Planning Updated by [email or web address]: Jacqueline Jauregui on 01/31/19 4:[address] Patient Name: LYNDSEY PAVON Admission Status: ER Accout number: [id number] Admission Date: 01-29-2019 : 1950 Admission Diagnosis:CELLULITIS OF LEFT LOWER LIMB Attending: MYA NICK Current LOS: 2 Anticipated DC Date: Planned Disposition: Home Primary Insurance: MEDICAID [place] PENDING Discharge Planning Comments: CM met with patient to complete initial dc planning assessment. CM educated patient on the CM role and verbal consent given by patient to complete assessment. Patient lives at home alone. At discharge patient plans to return and feels this is a safe discharge. CM discussed availability of home health. He is uninsured and does not have a PCP. He states his friend, Pamela, can do his dressing changes and she is here and agrees. I spoke with patient's nurse (Radha) and informed her that Pamela would like called before tomorrow morning's dressing change to learn. CM will continue to follow and will assist as needed with dc plans/needs. Net Maker: Jacqueline Jauregui DCPIA - Discharge Planning Initial Assessment Updated by [email or web address]: Jacqueline Jauregui on 01/31/19 5:18 pm * Is the patient Alert and Oriented? Yes * How many steps to enter\exit or inside your home? 5/0 * PCP None * Pharmacy [facility] * Preadmission Environment Home Alone * ADLs Partial Dependent * Partial ADLs (Assistance needed) Ambulation * Equipment Bedside Commode Cane Oxygen Walker Wheelchair * List name and contact numbers for known caregivers / representatives who currently or will assist patient after discharge: Pamela Duncan - friend - [phone] * Verbal permission to speak to the caregivers and representatives has been obtained from the patient. Yes * Community resources currently utilized None * Additional services required to return to the preadmission environment? No * Can the patient safely return to the preadmission environment? Yes * Has this patient been hospitalized within the prior 30 days at any hospital? No Coverage Notice Reviewer: [email or web address] - Jacqueline Jauregui Notice Issued Date-Time: 02/01/2019 12:47 Notice Type: Patient Choice Letter Notice Delivered To: Patient Relationship to Patient: Self Head Of Quality Name: Delivery Method: HAND - Hand Delivered Neela Days: Prior Verbal Notification: Recipient Understood Notice: Yes Recipient Signature: Yes Med Rec Note Co-signed by Attending: Coverage Notice Comment: Refuses Home Health Last DP export: 01/31/19 4:25 pm Patient Name: LYNDSEY PAVON Page 32965 at 1251 All edits/amendments must be made on the electronic document DICTATION DATE: 02/01/19 1250 CASINO DEALER: BJ 02/01/19 1250 RPT#: [id number] DC DATE: STATUS: ADM IN [facility] [address] [place] [address] END OF REPORT
--- NOTE | 2019-02-01 14:09 | NUR ---
DC HOME VOICE UNDERSTAND OF DC INSTRUCITON WITH SON AT SIDE. FLU SHOT WAS GIVEN PRIOR TO DC. NO IV ACCESS. NO C/O NOTED. STABLE CONDITION UPON DC.
== END 2019-02-01 14:11 | disposition home or self-care (01) | DRG 854 ==
LOC: D.ER 08:11 → D.MS 10:03 → D.EDHOLD 10:03 → D.MS 10:30
PROVIDERS: Family Medicine; Surgery; ADMIT Internal Medicine Nephrology; ATTEND Internal Medicine Nephrology
PROC: 0J9M0ZZ Drainage of Left Upper Leg Subcutaneous Tissue and Fascia, Open Approach (ICD-10-PCS; principal; 2019-01-30 16:00)
DX: A41.9 Sepsis, unspecified organism (principal); L03.116 Cellulitis of left lower limb; I11.0 Hypertensive heart disease with heart failure; I50.9 Heart failure, unspecified; I25.10 Atherosclerotic heart disease of native coronary artery without angina pectoris; I25.5 Ischemic cardiomyopathy

== ENCOUNTER 2019-02-05 13:54 | Emergency (ER) | payer MEDICAID ==
[~2019-02-05] VITALS: Ht 177.8 cm; Wt 109.1 kg
[~2019-02-05 13:54] MED LIST changes: +CLEOCIN HCL300 MG PO; +FLORAJEN3 CAPS460 MG PO; +INDOCIN25 MG PO; +NORCO-10 PO
[2019-02-05 13:55] VITALS: Ht 177.8 cm; Wt 109.1 kg
[2019-02-05 14:38] LABS: BASOPHILS 0.2 % (0-2); EOSINOPHILS 4.5 % (0-7); HEMATOCRIT 37.5 % (42.0-54.0); HEMOGLOBIN 12.5 g/dL (13.5-17.5); IMMATURE GRANULOCYTES 0.4 % (0-5); LYMPHOCYTES 15.8 % (15-50); MCH 29.8 pg (26.0-34.0); MCHC 33.3 g/dL (31.0-37.0); MCV 89.3 fL (80.0-100.0); MONOCYTES 8.9 % (2-11); NEUTROPHILS 70.2 % (40-80); RDW 13.7 % (11.5-14.5); WBC 8.2 10x3/uL (4.8-10.8)
[2019-02-05 14:39] LABS: PLATELET COUNT 235 10x3/uL (130-400)
[2019-02-05 15:09] LABS: ALBUMIN 2.7 g/dL (3.4-5.0); ALKALINE PHOSPHATASE 55 U/L (46-116); ALT (SGPT) 24 U/L (10-68); BILIRUBIN - TOTAL 0.42 mg/dL (0.2-1.3); CALC OSMOLALITY 286 mosm/kg (275-300); CALCIUM 8.1 mg/dL (8.5-10.1); CARBON DIOXIDE 28.8 mmol/L (21.0-32.0); CHLORIDE - SERUM 105 mmol/L (98-107); CREATININE - SERUM 1.9 mg/dL (0.6-1.3); GLUCOSE 159 mg/dL (74-106); POTASSIUM - SERUM 3.9 mmol/L (3.5-5.1); PROTEIN - SERUM 6.3 g/dL (6.4-8.2); SODIUM 141 mmol/L (136-145); UREA NITROGEN 21 mg/dL (7-18); eGFR NON AFRICAN AMERICAN 37 mL/min (90-120)
[2019-02-05 15:24] LABS: CKMB 3.7 U/L (0.0-3.6); CREATINE KINASE 75 UL (21-232)
[2019-02-05 15:27] LABS: TROPONIN-I 0.099 ng/mL (0.000-0.060)
[2019-02-05] MEDS ORDERED: OMEPRAZOLE40 MG PO (15:38)
[2019-02-05 16:20] VITALS: BP 154/73
== END 2019-02-05 16:20 | disposition home or self-care (01) ==
LOC: D.ER 13:54
PROVIDERS: Emergency Medicine
DX: R07.9 Chest pain, unspecified (principal); I25.10 Atherosclerotic heart disease of native coronary artery without angina pectoris; I10 Essential (primary) hypertension

== ENCOUNTER 2019-04-22 14:59 | Inpatient (IN) | payer MEDICAID ==
[~2019-04-22] VITALS: Ht 177.8 cm; Wt 109.5 kg
[~2019-04-22 14:59] MED LIST changes: +OMEPRAZOLE40 MG PO
[2019-04-22 15:59] LABS: BASOPHILS 0.3 % (0-2); EOSINOPHILS 4.5 % (0-7); HEMATOCRIT 36.9 % (42.0-54.0); HEMOGLOBIN 12.3 g/dL (13.5-17.5); IMMATURE GRANULOCYTES 0.1 % (0-5); LYMPHOCYTES 16.8 % (15-50); MCH 28.5 pg (26.0-34.0); MCHC 33.3 g/dL (31.0-37.0); MCV 85.4 fL (80.0-100.0); NEUTROPHILS 66.3 % (40-80); PLATELET COUNT 192 10x3/uL (130-400); RBC 4.32 10x6/uL (4.20-6.10); RDW 13.8 % (11.5-14.5); WBC 6.9 10x3/uL (4.8-10.8)
--- NOTE | 2019-04-22 16:00 | NUR ---
BEHAVIORAL HEALTH NURSE ON UNIT CONTACTED ABOUT BEHAVIORAL HEALTH SCREENING QUESTIONAIRE.
[2019-04-22 16:08] LABS: APTT 33.5 SECONDS (22.8-39.4); INR 1.24 (0.85-1.17); PROTIME 15.1 SECONDS (11.6-15.0)
[2019-04-22 16:14] LABS: ALBUMIN 3.2 g/dL (3.4-5.0); ALKALINE PHOSPHATASE 50 U/L (46-116); ALT (SGPT) 17 U/L (10-68); BILIRUBIN - TOTAL 0.83 mg/dL (0.2-1.3); CALC OSMOLALITY 286 mosm/kg (275-300); CALCIUM 8.7 mg/dL (8.5-10.1); CARBON DIOXIDE 24.6 mmol/L (21.0-32.0); CHLORIDE - SERUM 107 mmol/L (98-107); CREATININE - SERUM 1.3 mg/dL (0.6-1.3); GLUCOSE 107 mg/dL (74-106); POTASSIUM - SERUM 3.9 mmol/L (3.5-5.1); PROTEIN - SERUM 6.8 g/dL (6.4-8.2); SODIUM 142 mmol/L (136-145); UREA NITROGEN 23 mg/dL (7-18); eGFR NON AFRICAN AMERICAN 58 mL/min (90-120)
[2019-04-22 16:30] LABS: CKMB 1.9 U/L (0.0-3.6); CREATINE KINASE 59 UL (21-232); MAGNESIUM - SERUM 2.1 mg/dL (1.8-2.4); TROPONIN-I 0.018 ng/mL (0.000-0.060)
--- NOTE | 2019-04-22 17:15 | NUR ---
DR. PEDRAZA NOTIFIED AND REVIEWED PT'S BEHAVIOR AND ASSESSMENT RESUILTS. PT IS A LOW RISK PER DR PEDRAZA. DR PEDRAZA STATED TO GIVE RESOURCES TO PT AT TIME OF DISCHARGE. NO FURTHER ORDERS AT THIS TIME. RESOURES REVIEWED WITH PATIENT AND HE VERBALIZED UNDERSTANDING.
[2019-04-22 17:23] VITALS: BP 145/70
[2019-04-22 18:23] VITALS: BP 132/74
--- NOTE | 2019-04-22 19:44 | NUR ---
PT TO FLOOR AT 193
--- NOTE | 2019-04-22 19:55 | NUR ---
RECEIVED FROM ER, PT IS A&O X4, PLACED ON ROBUDIWF-80-NI, GAVE PT A COLA, HISTORY AND MEDS COMPLETE, EXPLAINED HE WOULD BE NPO AFTER MIDNIGHT, IV-20G-LAC, DENIES ANY NEEDS AT THIS TIME, BED IS LOW, SRX1, CALL LIGHT IN REACH, WILL CONTINUE PLAN OF CARE
[2019-04-22 23:53] VITALS: BP 129/61; BMI 34.9
[2019-04-23] VITALS: BP 136/75
--- NOTE | 2019-04-23 00:05 | NUR ---
ADMISSION ASSESSMENT COMPLETED AT THIS TIME. PT RESTING IN BED WITH NO DISCOMFORT. SR W/ PVCS PER TELEMETRY. MONITOR AND CPOC.
[2019-04-23 04:00] VITALS: BP 140/65
[2019-04-23 07:46] VITALS: BP 161/72
--- NOTE | 2019-04-23 07:50 | NUR ---
PT RESTING. RESPIRATIONS 33 REGULAR. SLIGHT DYSPNEA NOTED. PT STATES THAT IS NORMAL FOR HIM. O2 @ 2L NC. ASSESSMENT DONE.
--- NOTE | 2019-04-23 09:30 | NUR ---
PACEMAKER INTERROGATED. SENT TO [employer]. REP CHY IS TO CALL DR. MELGAR WITH RESULTS.
[2019-04-23 11:46] VITALS: BP 140/54
--- NOTE | 2019-04-23 13:13 | NUR ---
I have reviewed this patient and I concur with the Shift Assessment completed by the Licensed Practical Nurse today this shift.
[2019-04-23 15:07] LABS: % SATURATION 8 % (15-55); IRON 31 ug/dl (35-150); TOTAL IRON BIND CAPACITY 356 ug/dl (260-445); UNSAT IRON BIND CAPACITY 325 ug/dl (150-375)
[2019-04-23 15:21] VITALS: BP 128/69
[2019-04-23 19:08] LABS: APPEARANCE CLEAR (CLEAR); COLOR STRAW (YELLOW)
[2019-04-23 19:09] LABS: BILIRUBIN NEGATIVE (NEGATIVE); GLUCOSE NEGATIVE (NEGATIVE); KETONE NEGATIVE (NEGATIVE); NITRITE NEGATIVE (NEGATIVE); PROTEIN NEGATIVE (NEGATIVE); SPECIFIC GRAVITY 1.015 (1.005-1.020); UROBILINOGEN NORMAL (NORMAL)
--- NOTE | 2019-04-23 19:48 | NUR ---
RECEIVED REPORT, WILL ASSUME CARE OF PT, PT SLEEPING, NO DISTRESS NOTICE AT THIS TIME, BED IS LOW, SRX1, CALL LIGHT IN REACH, WILL CONTINUE PLAN OF CARE
[2019-04-23 20:00] VITALS: BP 134/60
[2019-04-24 00:11] VITALS: BP 135/61
--- NOTE | 2019-04-24 03:28 | NUR ---
I have reviewed this patient and I concur with the Shift Assessment completed by the Licensed Practical Nurse today this shift.
[2019-04-24 04:00] VITALS: BP 138/60
[2019-04-24 05:32] LABS: BASOPHILS 0.2 % (0-2); EOSINOPHILS 2.7 % (0-7); HEMATOCRIT 41.1 % (42.0-54.0); HEMOGLOBIN 13.6 g/dL (13.5-17.5); MCH 28.5 pg (26.0-34.0); MCHC 33.1 g/dL (31.0-37.0); MEAN PLATELET VOLUME 10.9 fL (7.4-10.4); NEUTROPHILS 62.1 % (40-80); PLATELET COUNT 203 10x3/uL (130-400); RBC 4.78 10x6/uL (4.20-6.10); RDW 13.8 % (11.5-14.5)
[2019-04-24 05:34] LABS: WBC 8.8 10x3/uL (4.8-10.8)
[2019-04-24 05:40] LABS: ANION GAP 11.6 mmol/L (8-16); CREATININE - SERUM 1.4 mg/dL (0.6-1.3); POTASSIUM - SERUM 3.6 mmol/L (3.5-5.1)
--- NOTE | 2019-04-24 07:44 | NUR ---
ALERT AND ORIENTED. 02 AT 2 L/M PER NC. TELEMERTY SHOWS SR. PT HAS A PACEMALER/DIF. LEFT AC WITH DOBUTAMINE 16.6. SR UP WITH CALL LIGHT IN REACH. WILL MONITOR
[2019-04-24 09:01] VITALS: BP 160/62
[2019-04-24 11:41] VITALS: BP 145/66
[2019-04-24 13:20] VITALS: Ht 177.8 cm; Wt 109.5 kg
--- NOTE | 2019-04-24 15:52 | NUR ---
I have reviewed this patient and I concur with the Shift Assessment completed by the Licensed Practical Nurse today this shift.
[2019-04-24 18:48] VITALS: BP 159/78
--- NOTE | 2019-04-24 19:36 | NUR ---
ASSESSMENT COMPLETE, PT A&O. RESPERATIONS EVEN ON O2 AT 2 LITERS VIA NC. IV TO LEFT AC WITH DOBUTREX INFUSING, STOOD PT TO OBTAIN DAILY WT AND RECALCULATED DRIP ACCORDING TO CURRENT WT OF 109 KILOGRAMS. ( DOUBTAMINE AT 16.4 CC/HR). PT ASKING FOR SOMETHING TO HELP HIM REST TONIGHT, INFORMED HIM THAT I WILL CALL THE PHYSICAIN AND ASK. DENIES OTHER NEEDS AT THIS TIME, BED LOW, CL IN REACH.
[2019-04-24 20:00] VITALS: BP 123/59
--- NOTE | 2019-04-24 20:32 | NUR ---
UP TO SHOWER.
--- NOTE | 2019-04-24 21:42 | NUR ---
HS MEDS GIVEN WITH FRESH ICE WATER. PT DENIES NEEDS AT THIS TIME.
[2019-04-25] VITALS (7 sets, daily range): BP systolic 126–147; BP diastolic 60–75
--- NOTE | 2019-04-25 00:33 | NUR ---
I have reviewed this patient and I concur with the Shift Assessment completed by the Licensed Practical Nurse today this shift.
--- NOTE | 2019-04-25 02:47 | NUR ---
RESTING WITH EYES CLOSED, RESPERATIONS EVEN, NO S/S DISTRESS NOTED.
[2019-04-25 05:53] LABS: BASOPHILS 0.1 % (0-2); EOSINOPHILS 5.9 % (0-7); HEMATOCRIT 38.2 % (42.0-54.0); HEMOGLOBIN 12.6 g/dL (13.5-17.5); IMMATURE GRANULOCYTES 0.3 % (0-5); LYMPHOCYTES 26.7 % (15-50); MCH 27.9 pg (26.0-34.0); MCV 84.5 fL (80.0-100.0); MEAN PLATELET VOLUME 11.3 fL (7.4-10.4); MONOCYTES 11.2 % (2-11); NEUTROPHILS 55.8 % (40-80); PLATELET COUNT 213 10x3/uL (130-400); RBC 4.52 10x6/uL (4.20-6.10); RDW 13.6 % (11.5-14.5); WBC 7.8 10x3/uL (4.8-10.8)
[2019-04-25 06:03] LABS: ANION GAP 9.8 mmol/L (8-16); CALCIUM 8.4 mg/dL (8.5-10.1); CARBON DIOXIDE 30.4 mmol/L (21.0-32.0); CREATININE - SERUM 1.7 mg/dL (0.6-1.3); POTASSIUM - SERUM 3.2 mmol/L (3.5-5.1)
--- NOTE | 2019-04-25 07:36 | NUR ---
ALERT AND ORIENTED. TELEMERTY SHOWS SR WITH RARE PVCS AND PACS. PT HAS A PACEMAKER AND DEFIB. DOBUTAMINE INFUSING INTO LEFT AC. NO NEEDS VOICED. SR UP WITH CALL LIGHT IN REACH
--- NOTE | 2019-04-25 07:50 | NUR ---
DOBUTAMINE DECREASED TO 2.5MG/KG AT 8.2.
[2019-04-25 08:13] LABS: FOLATE (FOLIC ACID) - SERUM 15.8 ng/mL (>3.0)
--- NOTE | 2019-04-25 19:46 | NUR ---
ASSESSMENT COMPLETE, PT A&O. RESPERATIONS UNLABORED ON RA. RT AT BED SIDE TO GIVE UPDRAFT. IV TO RIGHT AC WITH DOBUTAMINE AT 2.5 MCG/KILO, (8.2 CC/HR). PT CURRENTLY DENIES PAIN OR NEEDS AT THIS TIME, HOWEVER DID REQUEST THAT BENADRYL BE BROUGHT WITH HS MEDS.
--- NOTE | 2019-04-26 02:34 | NUR ---
RESTING WITH EYES CLOSED, RESPERATIONS EVEN, NO S/S DISTRESS NOTED.
[2019-04-26 04:00] VITALS: BP 141/68
--- NOTE | 2019-04-26 04:16 | NUR ---
I have reviewed this patient and I concur with the Shift Assessment completed by the Licensed Practical Nurse today this shift.
[2019-04-26 06:48] LABS: BASOPHILS 0.3 % (0-2); EOSINOPHILS 8.1 % (0-7); HEMATOCRIT 40.3 % (42.0-54.0); HEMOGLOBIN 13.5 g/dL (13.5-17.5); IMMATURE GRANULOCYTES 0.3 % (0-5); MCH 28.3 pg (26.0-34.0); MCHC 33.5 g/dL (31.0-37.0); MCV 84.5 fL (80.0-100.0); MONOCYTES 11.3 % (2-11); PLATELET COUNT 226 10x3/uL (130-400); RBC 4.77 10x6/uL (4.20-6.10); RDW 13.7 % (11.5-14.5); WBC 6.4 10x3/uL (4.8-10.8)
[2019-04-26 07:16] LABS: ANION GAP 11.5 mmol/L (8-16); CALCIUM 8.6 mg/dL (8.5-10.1); CARBON DIOXIDE 29.3 mmol/L (21.0-32.0); CREATININE - SERUM 1.5 mg/dL (0.6-1.3)
[2019-04-26 07:17] LABS: POTASSIUM - SERUM 3.8 mmol/L (3.5-5.1)
--- NOTE | 2019-04-26 07:20 | NUR ---
REPORT RECEIVED. WILL CONTINUE WITH POC. PT CURRENTLY LYING SUPINE. CALL LIGHT W/I REACH. PT IS AAO AND UP AD MARTIN. RR EVEN AND UNLABORED ON 2L 02. DOBUTAMINE INFUSING @8.2ML/HR VIA R.AC PIV. NO S/S OF DISTRESS NOTED. PT DENIES ANY NEEDS AT THIS TIME. WILL CTM.
[2019-04-26 09:47] VITALS: BP 125/65
--- NOTE | 2019-04-26 14:27 | NUR ---
I have reviewed this patient and I concur with the Shift Assessment completed by the Licensed Practical Nurse today this shift.
[2019-04-26 17:47] VITALS: BP 131/39
[2019-04-26 17:56] VITALS: BP 119/75
--- NOTE | 2019-04-26 19:03 | MORECARE ---
CASE MANAGEMENT DISCHARGE SUMMARY PATIENT: LYNDSEY PAVON UNIT: [id number] ADM DATE: 04/24/19 AGE: 68 : 49 SEX: M ROOM/BED: D.2121 AUTHOR: ABRIL PATTON PHYSICIAN: REFERRING PHYSICIAN: MYA NICK MD DATE OF SERVICE: 04/26/19 Discharge Plan Patient Name: LYNDSEY PAVON Facility: [facility]:[place] : 1950 Planned Disposition: Home Anticipated Discharge Date: 04/26/19 Discharge Date: Expected LOS: 2 Initial Reviewer: [email or web address] Initial Review Date: 04/22/2019 Generated: 04/26/19 8:03 pm Patient Name: LYNDSEY PAVON Page 67935 at 1903 All edits/amendments must be made on the electronic document DICTATION DATE: 04/26/191902 STRAP BUCKLER: BJ 04/26/191902 RPT#: [id number] DC DATE: STATUS: ADM IN [facility] [address] [place] [address] END OF REPORT
--- NOTE | 2019-04-26 19:10 | MORECARE ---
CASE MANAGEMENT DISCHARGE SUMMARY PATIENT: LYNDSEY PAVON UNIT: [id number] ADM DATE: 04/24/19 AGE: 68 : 49 SEX: M ROOM/BED: D.2121 AUTHOR: ABRIL PATTON PHYSICIAN: REFERRING PHYSICIAN: MYA NICK MD DATE OF SERVICE: 04/26/19 Discharge Plan Patient Name: LYNDSEY PAVON Facility: [facility]:[place] : 1950 Planned Disposition: Home Anticipated Discharge Date: 04/26/19 Discharge Date: Expected LOS: 2 Initial Reviewer: [email or web address] Initial Review Date: 04/22/2019 Generated: 04/26/19 8:10 pm DCPIA - Discharge Planning Initial Assessment Updated by [email or web address]: Ashley Marinelli on 04/26/19 7:09 pm * Is the patient Alert and Oriented? Yes * How many steps to enter\exit or inside your home? HAS RAMP * PCP DOES NOT HAVE A PCP MEDICAID PENDING ? * Pharmacy [facility] DOES NOT HAVE ANY PHARMACY ASSISTANCE * Preadmission Environment Home with Family * ADLs Independent * Other Equipment STATES HE HAS OXYGEN STATIONARY AND PORTABLE, WALKER, CANE STATES HE BOUGHT THE DME OFF [employer] * List name and contact numbers for known caregivers / representatives who currently or will assist patient after discharge: HAS A SON AND DAUGHTER LISTED NEAL HORNER - [phone] PATIENT STATES HIS MOTHER HELPS HIM. SHE IS 92 YRS OLD * Verbal permission to speak to the caregivers and representatives has been obtained from the patient. No * Community resources currently utilized None * Please name any agencies selected above. N/A * Additional services required to return to the preadmission environment? Yes * Can the patient safely return to the preadmission environment? Yes * Has this patient been hospitalized within the prior 30 days at any hospital? Yes Last DP export: 04/26/19 6:03 p Patient Name: LYNDSEY PAVON Page 48783 at 1910 All edits/amendments must be made on the electronic document DICTATION DATE: 04/26/191908 CASE MANAGEMENT COORDINATOR: BJ 04/26/191908 RPT#: [id number] DC DATE: STATUS: ADM IN [facility] [address] [facility] [place] [address] END OF REPORT
--- NOTE | 2019-04-26 19:29 | MORECARE ---
CASE MANAGEMENT DISCHARGE SUMMARY PATIENT: LYNDSEY PAVON UNIT: [id number] ADM DATE: 04/24/19 AGE: 68 : 49 SEX: M ROOM/BED: D.2125 AUTHOR: POOJADOC PHYSICIAN: REFERRING PHYSICIAN: MYA NICK MD DATE OF SERVICE: 04/26/19 Discharge Plan Patient Name: LYNDSEY PAVON Facility: [facility]:[place] : 1950 Planned Disposition: Home Anticipated Discharge Date: 04/26/19 Discharge Date: Expected LOS: 2 Initial Reviewer: [email or web address] Initial Review Date: 04/22/2019 Generated: 04/26/19 8:29 pm Comments DCP- Discharge Planning Updated by [email or web address]: Ashley Marinelli on 04/26/19 6:[address] LATE ENTRY 1630 CM WENT TO SPEAK WITH THE PATIENT TO ASSESS NEEDS. HE STATED YOU HURRY I GOING HOME SOON. PATIENT AND HIS 92 YEAR OLD MOTHER LIVE TOGETHER. HE STATES THEY HELP ONE ANOTHER. HE STATES IT IS DIFFICULT. HE HAD MEDICAID PENDING. HE RECEIVED FOOD STAMPS ASSISTANCE AT ONE TIME BUT NO LONGER. HIS MEDICATIONS COST HIM ABOUT $300.00/ MONTH. NEITHER HE NOR HIS MOTHER RECEIVES ANY SERVICES. HE IS INTERESTED IN MEALS ON WHEELS OR MOM'S MEALS FOR HIS MOTHER. HE WOULD LIKE TO RECEIVE FOOD STAMPS AGAIN IF POSSIBLE. IT WAS $200.00 A MONTH. HE WILL ACCEPT A REFERRAL TO [facility]. [facility] PROVIDED THE PATIENT WITH A RX CARD TO HOPEFULLY ASSIST WITH MEDS. [facility] CALLED AND SPOKE WITH ERICA IN [facility]. THE PATIENT NEVER APPLIED FOR MEDICARE A OR B. THEY HAVE ENOUGH INFORMATION THIS TIME TO COMPLETE HIS MEDICAID APPLICATION. [facility] WILL CONTACT [facility] IN THE AM THE OFFICE IS CLOSED IN THE PM. DCPIA - Discharge Planning Initial Assessment Updated by [email or web address]: Ashley Marinelli on 04/26/19 7:09 pm * Is the patient Alert and Oriented? Yes * How many steps to enter\exit or inside your home? HAS RAMP * PCP DOES NOT HAVE A PCP MEDICAID PENDING ? * Pharmacy [facility] DOES NOT HAVE ANY PHARMACY ASSISTANCE * Preadmission Environment Home with Family * ADLs Independent * Other Equipment STATES HE HAS OXYGEN STATIONARY AND PORTABLE, WALKER, CANE STATES HE BOUGHT THE DME OFF [employer] * List name and contact numbers for known caregivers / representatives who currently or will assist patient after discharge: HAS A SON AND DAUGHTER LISTED NEAL ENG- [place] - [phone] PATIENT STATES HIS MOTHER HELPS HIM. SHE IS 92 YRS OLD * Verbal permission to speak to the caregivers and representatives has been obtained from the patient. No * Community resources currently utilized None * Please name any agencies selected above. N/A * Additional services required to return to the preadmission environment? Yes * Can the patient safely return to the preadmission environment? Yes * Has this patient been hospitalized within the prior 30 days at any hospital? Yes Last DP export: 04/26/19 6:10 p Patient Name: LYNDSEY PAVON Page 72706 at 1928 All edits/amendments must be made on the electronic document DICTATION DATE: 04/26/191928 DOPER OPERATOR: BJ 04/26/191928 RPT#: [id number] DC DATE: STATUS: ADM IN [facility] [address] [place] [address] END OF REPORT
--- NOTE | 2019-04-26 19:35 | NUR ---
ASSESSMENT COMPLETE, PT A&O. SITTING UP ON SIDE IF BED. RESPERATIONS EVEN, ON RA. IV RIGHT AC SL. PT DENIES PAIN OR NEEDS, BED LOW, CL IN REACH.
[2019-04-26 20:00] VITALS: BP 156/60
--- NOTE | 2019-04-26 21:53 | NUR ---
HS MEDS GIVEN WITH FRESH ICE WATER, NORCO 1 TAB GIVEN FOR C/O PAIN, NO OTHER NEEDS EXPRESSED AT THIS TIME.
[2019-04-27 00:30] VITALS: BP 116/59
--- NOTE | 2019-04-27 04:25 | NUR ---
I have reviewed this patient and I concur with the Shift Assessment completed by the Licensed Practical Nurse today this shift.
[2019-04-27 04:30] VITALS: BP 132/61
[2019-04-27 06:19] LABS: BASOPHILS 0.2 % (0-2); EOSINOPHILS 8.1 % (0-7); HEMATOCRIT 39.3 % (42.0-54.0); HEMOGLOBIN 12.9 g/dL (13.5-17.5); IMMATURE GRANULOCYTES 0.2 % (0-5); MCH 27.9 pg (26.0-34.0); MCHC 32.8 g/dL (31.0-37.0); MCV 84.9 fL (80.0-100.0); MONOCYTES 11.1 % (2-11); NEUTROPHILS 49.4 % (40-80); PLATELET COUNT 187 10x3/uL (130-400); RBC 4.63 10x6/uL (4.20-6.10); RDW 13.6 % (11.5-14.5); WBC 5.8 10x3/uL (4.8-10.8)
[2019-04-27 06:37] LABS: ANION GAP 11.4 mmol/L (8-16); CALCIUM 8.8 mg/dL (8.5-10.1); CARBON DIOXIDE 30.1 mmol/L (21.0-32.0); CREATININE - SERUM 1.7 mg/dL (0.6-1.3); POTASSIUM - SERUM 3.5 mmol/L (3.5-5.1)
[2019-04-27 07:31] VITALS: BP 100/76
--- NOTE | 2019-04-27 08:33 | MORECARE ---
CASE MANAGEMENT DISCHARGE SUMMARY PATIENT: LYNDSEY PAVON UNIT: [id number] ADM DATE: 04/24/19 AGE: 68 : 49 SEX: M ROOM/BED: D.2127 AUTHOR: ABRIL PATTON PHYSICIAN: REFERRING PHYSICIAN: MYA NICK MD DATE OF SERVICE: 04/27/19 Discharge Plan Patient Name: LYNDSEY PAVON Facility: [facility]:[place] : 1950 Planned Disposition: Home Anticipated Discharge Date: 04/26/19 Discharge Date: Expected LOS: 2 Initial Reviewer: [email or web address] Initial Review Date: 04/22/2019 Generated: 04/27/19 9:33 am Comments DCP- Discharge Planning Updated by [email or web address]: Ashley Marinelli on 04/27/19 7:[address] LATE ENTRY 1630 CM WENT TO SPEAK WITH THE PATIENT TO ASSESS NEEDS. HE STATED YOU BETTER HURRY I AM GOING HOME SOON. PATIENT AND HIS 92 YEAR OLD MOTHER LIVE TOGETHER. HE STATES THEY HELP ONE ANOTHER. HE STATES IT IS DIFFICULT. HE HAD MEDICAID PENDING. HE RECEIVED FOOD STAMPS ASSISTANCE AT ONE TIME BUT NO LONGER. HIS MEDICATIONS COST HIM ABOUT $300.00/ MONTH. NEITHER HE NOR HIS MOTHER RECEIVES ANY SERVICES. HE IS INTERESTED IN MEALS ON WHEELS OR MOM'S MEALS FOR HIS MOTHER. HE WOULD LIKE TO RECEIVE FOOD STAMPS AGAIN IF POSSIBLE. IT WAS $200.00 A MONTH. HE WILL ACCEPT A REFERRAL TO [facility]. [facility] PROVIDED THE PATIENT WITH A RX CARD TO HOPEFULLY ASSIST WITH MEDS. [facility] CALLED AND SPOKE WITH ERICA IN [facility]. THE PATIENT NEVER APPLIED FOR MEDICARE A OR B. THEY HAVE ENOUGH INFORMATION THIS TIME TO COMPLETE HIS MEDICAID APPLICATION. [facility] WILL CONTACT [facility] IN THE AM THE OFFICE IS CLOSED IN THE PM. DCPIA - Discharge Planning Initial Assessment Updated by [id number]: Ashley Marinelli on 04/26/19 7:09 pm * Is the patient Alert and Oriented? Yes * How many steps to enter\exit or inside your home? HAS RAMP * PCP DOES NOT HAVE A PCP MEDICAID PENDING ? * Pharmacy [facility] DOES NOT HAVE ANY PHARMACY ASSISTANCE * Preadmission Environment Home with Family * ADLs Independent * Other Equipment STATES HE HAS OXYGEN STATIONARY AND PORTABLE, WALKER, CANE STATES HE BOUGHT THE DME OFF [employer] * List name and contact numbers for known caregivers / representatives who currently or will assist patient after discharge: HAS A SON AND DAUGHTER LISTED NEAL ENG- [place] - [phone] PATIENT STATES HIS MOTHER HELPS HIM. SHE IS 92 YRS OLD * Verbal permission to speak to the caregivers and representatives has been obtained from the patient. No * Community resources currently utilized None * Please name any agencies selected above. N/A * Additional services required to return to the preadmission environment? Yes * Can the patient safely return to the preadmission environment? Yes * Has this patient been hospitalized within the prior 30 days at any hospital? Yes Last DP export: 04/26/19 6:29 p Patient Name: LYNDSEY PAVON Page 70716 at 0833 All edits/amendments must be made on the electronic document DICTATION DATE: 04/27/19832 CARGO BRACER: BJ 04/27/19 0833 RPT#: [id number] DC DATE: STATUS: ADM IN [facility] [address] [place] [address] END OF REPORT
--- NOTE | 2019-04-27 08:40 | MORECARE ---
CASE MANAGEMENT DISCHARGE SUMMARY PATIENT: LYNDSEY PAVON UNIT: [id number] ADM DATE: 04/24/19 AGE: 68 : 49 SEX: M ROOM/BED: D.2123 AUTHOR: POOJADOC PHYSICIAN: REFERRING PHYSICIAN: MYA NICK MD DATE OF SERVICE: 04/27/19 Discharge Plan Patient Name: LYNDSEY PAVON Facility: [facility]:[place] : 1950 Planned Disposition: Home Anticipated Discharge Date: 04/26/19 Discharge Date: Expected LOS: 2 Initial Reviewer: [email or web address] Initial Review Date: 04/22/2019 Generated: 04/27/19 9:40 am Comments DCP- Discharge Planning Updated by [email or web address]: Ashley Marinelli on 04/27/19 7:[address] TC TO [facility] THIS AM. SPOKE W/ GLASS ETCHER, [place]. EXPLAINED PATIENT 'S NEEDS FOR HIM AND HIS MOTHER. REFERRAL ACCEPTED FOR MEALS ON WHEELS, CLEAN UP HELPER [place] ASSISTANCE AND HELP WITH APPLICATION FOR FOOD STAMPS AND MED ASSISTANCE. [facility] FAXED [facility] TO [phone]. TC TO THE PATIENT TO CONFIRM REFERRAL WAS MADE. DCP- Discharge Planning Updated by [email or web address]: Ashley Marinelli on 04/27/19 7:[address] LATE ENTRY 1630 CM WENT TO SPEAK WITH THE PATIENT TO ASSESS NEEDS. HE STATED YOU BETTER HURRY I AM GOING HOME SOON. PATIENT AND HIS 92 YEAR OLD MOTHER LIVE TOGETHER. HE STATES THEY HELP ONE ANOTHER. HE STATES IT IS DIFFICULT. HE HAD MEDICAID PENDING. HE RECEIVED FOOD STAMPS ASSISTANCE AT ONE TIME BUT NO LONGER. HIS MEDICATIONS COST HIM ABOUT $300.00/ MONTH. NEITHER HE NOR HIS MOTHER RECEIVES ANY SERVICES. HE IS INTERESTED IN MEALS ON WHEELS OR MOM'S MEALS FOR HIS MOTHER. HE WOULD LIKE TO RECEIVE FOOD STAMPS AGAIN IF POSSIBLE. IT WAS $200.00 A MONTH. HE WILL ACCEPT A REFERRAL TO [facility]. [facility] PROVIDED THE PATIENT WITH A RX CARD TO HOPEFULLY ASSIST WITH MEDS. [facility]I CALLED AND SPOKE WITH ERICA IN [facility]. THE PATIENT NEVER APPLIED FOR MEDICARE A OR B. THEY HAVE ENOUGH INFORMATION THIS TIME TO COMPLETE HIS MEDICAID APPLICATION. [facility] WILL [facility]CT [facility] IN THE AM THE OFFICE IS CLOSED IN THE PM. DCPIA - Discharge Planning Initial Assessment Updated by [email or web address]: sAhley Longs on 04/26/19 7:09 pm * Is the patient Alert and Oriented? Yes * How many steps to enter\exit or inside your home? HAS RAMP * PCP DOES NOT HAVE A PCP MEDICAID PENDING ? * Pharmacy [facility] DOES NOT HAVE ANY PHARMACY ASSISTANCE * Preadmission Environment Home with Family * ADLs Independent * Other Equipment STATES HE HAS OXYGEN STATIONARY AND PORTABLE, WALKER, CANE STATES HE BOUGHT THE DME OFF [employer] * List name and contact numbers for known caregivers / representatives who currently or will assist patient after discharge: HAS A SON AND DAUGHTER LISTED NEAL HORNER - [phone] PATIENT STATES HIS MOTHER HELPS HIM. SHE IS 92 YRS OLD * Verbal permission to speak to the caregivers and representatives has been obtained from the patient. No * Community resources currently utilized None * Please name any agencies selected above. N/A * Additional services required to return to the preadmission environment? Yes * Can the patient safely return to the preadmission environment? Yes * Has this patient been hospitalized within the prior 30 days at any hospital? Yes Last DP export: 04/27/19 7:33 a Patient Name: LYNDSEY PAVON Page 09882 at 0840 All edits/amendments must be made on the electronic document DICTATION DATE: 04/27/19838 DIRECTOR BUSINESS TRAVEL: BJ 04/27/19838 RPT#: [id number] DC DATE: STATUS: ADM IN [facility] [address] [place] [address] END OF REPORT
[2019-04-27] MEDS ORDERED: BUMEX2 MG PO (10:04)
--- NOTE | 2019-04-27 10:34 | NUR ---
ASSESSMENT DONE. NO DISTRESS NOTED. SITTING UP ON SIDE OF BED. PT WAS BROUGHT A COKE UPON REQUEST. ALERT AND ORIENTED X 4. WILL CONTINUE TO MONITOR.
[2019-04-27 11:21] VITALS: BP 148/62
[2019-04-27] MEDS ORDERED: COLCRYS0.6 MG PO (13:24)
[2019-04-27] MEDS ORDERED: ZYLOPRIM300 MG PO ×2 (13:24→13:29)
--- NOTE | 2019-04-27 14:30 | NUR ---
IV D/C WITH CATHETER INTACT. PT D/C HOME WITH D/C PAPERWORK VIA PERSONAL CAR.
--- NOTE | 2019-04-27 14:30 | NUR ---
I have reviewed this patient and I concur with the Shift Assessment completed by the Licensed Practical Nurse today this shift.
--- NOTE | 2019-04-28 08:43 | MORECARE ---
CASE MANAGEMENT DISCHARGE SUMMARY PATIENT: LYNDSEY PAVON UNIT: [id number] ADM DATE: 04/24/19 AGE: 68 : 49 SEX: M ROOM/BED: D.2128 AUTHOR: POOJADOC PHYSICIAN: REFERRING PHYSICIAN: MYA NICK MD DATE OF SERVICE: 04/28/19 Discharge Plan Patient Name: LYNDSEY PAVON Facility: [facility]:[place] : 1950 Planned Disposition: Home Anticipated Discharge Date: 04/27/19 Discharge Date: 04/27/2019 Expected LOS: 3 Initial Reviewer: [email or web address] Initial Review Date: 04/22/2019 Generated: 04/28/19 9:43 am Comments DCP- Discharge Planning Updated by [email or web address]: Ashley Marinelli on 04/27/19 7:[address] TC TO [place] [facility] [employer] THIS AM. SPOKE W/ WHISKEY FILTERER, LORETTA. EXPLAINED PATIENT 'S NEEDS FOR HIM AND HIS MOTHER. REFERRAL ACCEPTED FOR MEALS ON WHEELS, ENGINE GENERATOR ASSEMBLER ASSISTANCE AND HELP WITH APPLICATION FOR FOOD STAMPS AND MED ASSISTANCE. [facility] FAXED F[facility] SHEET TO [phone]. TC TO THE PATIENT TO CONFIRM REFERRAL WAS MADE. DCP- Discharge Planning Updated by [id number]: Ashley Marinelli on 04/27/19 7:[address] LATE ENTRY 1630 CM WENT TO SPEAK WITH THE PATIENT TO ASSESS NEEDS. HE STATED YOU BETTER HURRY I AM GOING HOME SOON. PATIENT AND HIS 92 YEAR OLD MOTHER LIVE TOGETHER. HE STATES THEY HELP ONE ANOTHER. HE STATES IT IS DIFFICULT. HE HAD MEDICAID PENDING. HE RECEIVED FOOD STAMPS ASSISTANCE AT ONE TIME BUT NO LONGER. HIS MEDICATIONS COST HIM ABOUT $300.00/ MONTH. NEITHER HE NOR HIS MOTHER RECEIVES ANY SERVICES. HE IS INTERESTED IN MEALS ON WHEELS OR MOM'S MEALS FOR HIS MOTHER. HE WOULD LIKE TO RECEIVE FOOD STAMPS AGAIN IF POSSIBLE. IT WAS $200.00 A MONTH. HE WILL ACCEPT A REFERRAL TO [facility]. [facility] PROVIDED THE PATIENT WITH A RX CARD TO HOPEFULLY ASSIST WITH MEDS. [facility] CALLED AND SPOKE WITH [facility] IN [place]. THE PATIENT NEVER APPLIED FOR MEDICARE A OR B. THEY HAVE ENOUGH INFORMATION THIS TIME TO COMPLETE HIS MEDICAID APPLICATION. [facility] WILL CON[facility]CT [facility] IN THE AM THE OFFICE IS CLOSED IN THE PM. DCPIA - Discharge Planning Initial Assessment Updated by [id number]: Ashleykassie Marinelli on 04/26/19 7:09 pm * Is the patient Alert and Oriented? Yes * How many steps to enter\exit or inside your home? HAS RAMP * PCP DOES NOT HAVE A PCP MEDICAID PENDING ? * Pharmacy [facility] DOES NOT HAVE ANY PHARMACY ASSISTANCE * Preadmission Environment Home with Family * ADLs Independent * Other Equipment STATES HE HAS OXYGEN STATIONARY AND PORTABLE, WALKER, CANE STATES HE BOUGHT THE DME OFF FACEBOOK * List name and contact numbers for known caregivers / representatives who currently or will assist patient after discharge: HAS A SON AND DAUGHTER LISTED NEAL ENG- [place] - [phone] PATIENT STATES HIS MOTHER HELPS HIM. SHE IS 92 YRS OLD * Verbal permission to speak to the caregivers and representatives has been obtained from the patient. No * Community resources currently utilized None * Please name any agencies selected above. N/A * Additional services required to return to the preadmission environment? Yes * Can the patient safely return to the preadmission environment? Yes * Has this patient been hospitalized within the prior 30 days at any hospital? Yes Last DP export: 04/27/19 7:40 a Patient Name: LYNDSEY PAVON Page [id number] at 0843 All edits/amendments must be made on the electronic document DICTATION DATE: 04/28/19842 LEAD CARPENTER: BJ 04/28/19 0843 RPT#: [id number] DC DATE:04/27/19 STATUS: DIS IN [facility] [address] [place] [address] END OF REPORT
--- NOTE | 2019-04-28 08:51 | MORECARE ---
CASE MANAGEMENT DISCHARGE SUMMARY PATIENT: LYNDSEY PAVON UNIT: [id number] ADM DATE: 04/24/19 AGE: 68 : 49 SEX: M ROOM/BED: D.2124 AUTHOR: POOJADOC PHYSICIAN: REFERRING PHYSICIAN: MYA NICK MD DATE OF SERVICE: 04/28/19 Discharge Plan Patient Name: LYNDSEY PAVON Facility: [facility]:[place] : 1950 Planned Disposition: Home Anticipated Discharge Date: 04/27/19 Discharge Date: 04/27/2019 Expected LOS: 3 Initial Reviewer: [email or web address] Initial Review Date: 04/22/2019 Generated: 04/28/19 9:50 am Comments DCP- Discharge Planning Updated by [email or web address]: Ashley Marinelli on 04/27/19 7:[address] TC TO [place] [facility] [employer] THIS AM. SPOKE W/ RUG DRYING MACHINE OPERATOR, LORETTA. EXPLAINED PATIENT 'S NEEDS FOR HIM AND HIS MOTHER. REFERRAL ACCEPTED FOR MEALS ON WHEELS, BULL RIVETER ASSISTANCE AND HELP WITH APPLICATION FOR FOOD STAMPS AND MED ASSISTANCE. [facility] FAXED FACE SHEET TO [phone]. TC TO THE PATIENT TO CONFIRM REFERRAL WAS MADE. DCP- Discharge Planning Updated by [email or web address]: Ashley Marinelli on 04/27/19 7:[address] LATE ENTRY 1630 CM WENT TO SPEAK WITH THE PATIENT TO ASSESS NEEDS. HE STATED YOU BETTER HURRY I AM GOING HOME SOON. PATIENT AND HIS 92 YEAR OLD MOTHER LIVE TOGETHER. HE STATES THEY HELP ONE ANOTHER. HE STATES IT IS DIFFICULT. HE HAD MEDICAID PENDING. HE RECEIVED FOOD STAMPS ASSISTANCE AT ONE TIME BUT NO LONGER. HIS MEDICATIONS COST HIM ABOUT $300.00/ MONTH. NEITHER HE NOR HIS MOTHER RECEIVES ANY SERVICES. HE IS INTERESTED IN MEALS ON WHEELS OR MOM'S MEALS FOR HIS MOTHER. HE WOULD LIKE TO RECEIVE FOOD STAMPS AGAIN IF POSSIBLE. IT WAS $200.00 A MONTH. HE WILL ACCEPT A REFERRAL TO [facility]. [facility] PROVIDED THE PATIENT WITH A RX CARD TO HOPEFULLY ASSIST WITH MEDS. [facility] CALLED AND SPOKE WITH [facility] IN [facility]. THE PATIENT NEVER APPLIED FOR MEDICARE A OR B. THEY HAVE ENOUGH INFORMATION THIS TIME TO COMPLETE HIS MEDICAID APPLICATION. [facility]CT [facility] IN THE AM THE OFFICE IS CLOSED IN THE PM. DCPIA - Discharge Planning Initial Assessment Updated by [id number]: Ashleykassie Marinelli on 04/26/19 7:09 pm * Is the patient Alert and Oriented? Yes * How many steps to enter\exit or inside your home? HAS RAMP * PCP DOES NOT HAVE A PCP MEDICAID PENDING ? * Pharmacy [facility] DOES NOT HAVE ANY PHARMACY ASSISTANCE * Preadmission Environment Home with Family * ADLs Independent * Other Equipment STATES HE HAS OXYGEN STATIONARY AND PORTABLE, WALKER, CANE STATES HE BOUGHT THE DME OFF FACEBOOK * List name and contact numbers for known caregivers / representatives who currently or will assist patient after discharge: HAS A SON AND DAUGHTER LISTED NEAL ENG- [place] - [phone] PATIENT STATES HIS MOTHER HELPS HIM. SHE IS 92 YRS OLD * Verbal permission to speak to the caregivers and representatives has been obtained from the patient. No * Community resources currently utilized None * Please name any agencies selected above. N/A * Additional services required to return to the preadmission environment? Yes * Can the patient safely return to the preadmission environment? Yes * Has this patient been hospitalized within the prior 30 days at any hospital? Yes Last DP export: 04/27/19 7:40 a Patient Name: LYNDSEY PAVON Page [id number] at 0851 All edits/amendments must be made on the electronic document DICTATION DATE: 04/28/1951 INTEGRATION LEAD: BJ 04/28/19 0850 RPT#: [id number] DC DATE:04/27/19 STATUS: DIS IN [facility] [address] [place] [address] END OF REPORT
== END 2019-04-27 15:34 | disposition home or self-care (01) | DRG 302 ==
LOC: D.ER 14:59 → D.M2 18:40 → OBSVTIME 18:42 → D.M2 04-24 14:28
PROVIDERS: Emergency Medicine; ADMIT Internal Medicine Nephrology; ATTEND Internal Medicine Nephrology
DX: I25.5 Ischemic cardiomyopathy (principal); I50.23 Acute on chronic systolic (congestive) heart failure; N17.9 Acute kidney failure, unspecified; I11.0 Hypertensive heart disease with heart failure; E78.5 Hyperlipidemia, unspecified; F41.9 Anxiety disorder, unspecified; I25.10 Atherosclerotic heart disease of native coronary artery without angina pectoris; M10.9 Gout, unspecified; Z91.128 Patient's intentional underdosing of medication regimen for other reason

== ENCOUNTER 2019-05-01 12:59 | Emergency (ER) | payer MEDICAID ==
[~2019-05-01 12:59] MED LIST changes: +BUMEX2 MG PO; +COLCRYS0.6 MG PO; +ZYLOPRIM300 MG PO
[2019-05-01 13:08] VITALS: BMI 34.9
[2019-05-01 13:50] LABS: ALBUMIN 3.6 g/dL (3.4-5.0); ALKALINE PHOSPHATASE 61 U/L (46-116); ALT (SGPT) 28 U/L (10-68); BILIRUBIN - TOTAL 1.01 mg/dL (0.2-1.3); CALC OSMOLALITY 280 mosm/kg (275-300); CARBON DIOXIDE 27.7 mmol/L (21.0-32.0); CHLORIDE - SERUM 101 mmol/L (98-107); CREATININE - SERUM 1.4 mg/dL (0.6-1.3); GLUCOSE 154 mg/dL (74-106); POTASSIUM - SERUM 3.7 mmol/L (3.5-5.1); PROTEIN - SERUM 7.3 g/dL (6.4-8.2); SODIUM 137 mmol/L (136-145); UREA NITROGEN 23 mg/dL (7-18); eGFR NON AFRICAN AMERICAN 53 mL/min (90-120)
[2019-05-01 13:54] LABS: BASOPHILS 0.1 % (0-2); EOSINOPHILS 1.8 % (0-7); HEMATOCRIT 39.9 % (42.0-54.0); HEMOGLOBIN 13.2 g/dL (13.5-17.5); IMMATURE GRANULOCYTES 0.1 % (0-5); LYMPHOCYTES 17.6 % (15-50); MCHC 33.1 g/dL (31.0-37.0); MCV 84.5 fL (80.0-100.0); MEAN PLATELET VOLUME 11.4 fL (7.4-10.4); MONOCYTES 9.2 % (2-11); NEUTROPHILS 71.2 % (40-80); PLATELET COUNT 223 10x3/uL (130-400); RBC 4.72 10x6/uL (4.20-6.10); RDW 13.6 % (11.5-14.5); WBC 10.9 10x3/uL (4.8-10.8)
[2019-05-01 13:55] LABS: INR 1.15 (0.85-1.17); PROTIME 14.2 SECONDS (11.6-15.0)
[2019-05-01 14:00] LABS: CKMB 2.2 U/L (0.0-3.6); CREATINE KINASE 69 UL (21-232); MAGNESIUM - SERUM 1.8 mg/dL (1.8-2.4); TROPONIN-I 0.018 ng/mL (0.000-0.060)
[2019-05-01] MEDS ORDERED: VISTARIL50 MG PO (15:26)
[2019-05-01 16:09] VITALS: BP 112/61
== END 2019-05-01 16:19 | disposition home or self-care (01) ==
LOC: D.ER 12:59
PROVIDERS: Family Medicine
DX: F41.9 Anxiety disorder, unspecified (principal); I50.9 Heart failure, unspecified; F41.0 Panic disorder [episodic paroxysmal anxiety]

== ENCOUNTER 2019-06-19 14:08 | Inpatient (IN) | payer MEDICAID ==
[~2019-06-19] VITALS: Ht 177.8 cm; Wt 79.4 kg
--- NOTE | ~2019-06-19 | HEMODYNAMI ---
PATIENT:LYNDSEY PAVON MEDICAL RECORD: [id number] : [birth year] LOCATION[facility] [id number] ADMISSION DATE: 06/19/19 Generatedon:06/21/201910:33 Patient name: LYNDSEY PAVON Patient #: [id number] : 1950 Date of study: 06/21/2019 Page: Of Hemodynamic Procedure Report Patient Data Patient Demographics Procedure consent was obtained First Name: LYNDSEY Gender: Male Last Name: SAVANAH : 1950 [facility] Initial: PALMA Age: 68 year(s) Patient #: [id number] Race: SSN: [id number] Additional ID: [id number] Contact details Address: [address] [place] [address] State: [place] City: [place] Zip code: [address] Past Medical History Allergies Allergen Reaction Date Comments Reported Morphine 07/20/2016 Other allergy 07/20/2016 LISINOPRIL Other allergy 03/01/2018 Morphine,Meoprolol, Plavix Other allergy 11/13/2018 lISINOPRIL, METOPROLOL, MORPHINE, CLOPIDOGREL Admission Admission Data Admission Date: 06/19/2019 Admission Time: 14:08 Arrival Date: 06/19/2019 Arrival Time: 14:08 Admit Source: Other Insurance Payor: Medicaid Room #: D.2125 Height (in.): 70.08 BSA: 2.27 (m2) Height (cm.): 178 BMI: 34.72 (kg/m2) Weight (lbs.): 242.51 Weight (kg.): 110 Lab Results Lab Result Date: 06/21/2019 Lab Result Time: 0:00 Biochemistry Name Units Result Min Max BUN mg/dl 25 --(----)-* 7 18 Creatinine mg/dl 1.5 --(----)-* 0.6 1.3 CBC Name Units Result Min Max Hemoglobin g/dl 12.2 *-(----)-- 13.5 17.5 Procedure Procedure Types Cath Procedure Diagnostic Procedure [facility] w/Coronaries FFR/IVUS Intra-Coronary IVUS Initial Sedation Charges Moderate Sedation up to 30 minutes PCI Procedure Coronary Stent Coronary Stent Initial x2 Coronary Atherectomy Atherectomy w/PTCA Coronary Initial Procedure Description Procedure Date Procedure Date: 06/21/2019 Procedure Start Time: 9:49 Procedure End Time: 10:28 Procedure Staff Name Function Efe Glaser MD Performing Physician Beto Echevarria RT Monitor Stephanie Roman RT Scrub Jean Mcelroy RN Nurse Indication Angina Procedure Data Cath Procedure Fluoroscopy Diagnostic fluoroscopy Total fluoroscopy Time: time: 10.4 min 10.4 min Diagnostic fluoroscopy Total fluoroscopy dose: dose: 2187 mGy 2187 mGy Contrast Material Contrast Material Type Amount (ml) Isovue 300 190 Entry Location Entry Primary Successful Side Size Upsize Upsize Entry Closure [place] ccessful Closure Location (Fr) 1 (Fr) 2 (Fr) Remarks Device Remarks Radial Right 6 Fr Mechanical artery Short Compression Estimated blood loss: 5 ml Diagnostic catheters Device Type Used For End Catheter Placement DIAGNOSTIC [place]urt Field 110cm 5 Multi-vessel Fr catheter ([id number]) Angiography DIAGNOSTIC AR2 MOD 5 Fr Right Coronary catheter ([id number]) Angiography Procedure Complications No complications Procedure Medications Medication Administration Route Dosage Oxygen etCO2 Nasal cannula 2 l/min Lidocaine 2% added to field 20 Heparin Flush Bag added to field 2 bags (1000units/500ml NS) 0.9% NaCl I.V. 100 ml/hr Radial Cocktail I.A. 1 syringe (Verapamil 2mg/Nitro 400mcg/Heparin 1500units) Versed I.V. 2 mg Fentanyl I.V. 100 mcg Heparin Bolus I.V. 5000 units Integrilin (Bolus I.V. 10.2 ml 2mg/ml) Versed I.V. 1 mg Effient P.O. 60 mg Hemodynamics Rest BSA: 2.27 (m2) HGB: 12.2 (g/dl) O2 Consumption: Estimated: 243.75 (ml/min) O2 Co nsumption indexed: Estimated:107.38 (ml/min/m) Heart Rate: 47 (bpm) Pressure Samples Time Site Value (mmHg) Purpose Heart Use Rate(bpm) 9:56 LV 118/50,45 Snapshot 75 Snapshots Pre Cath Intra NCS Post Cath Vital Signs Time Heart Resp SPO2 etCO2 NIBP (mmHg) Rhythm Pain Sedation Rate (ipm) (%) (mmHg) Status Level (bpm) 9:42:10 78 22 94 33 111/65(80) NSR 0 (11) 10(A) , No pain 9:46:24 71 22 92 31.5 94/62(76) NSR 0 (11) 10(A) , No pain 9:50:32 83 21 94 36.8 104/63(79) NSR 0 (11) 10(A) , No pain 9:55:37 75 19 93 37.5 79/56(70) NSR 0 (11) 9(A) , No pain 9:59:41 66 19 94 36.8 87/59(80) NSR 0 (11) 9(A) , No pain 10:04:32 71 20 93 38.3 99/64(86) NSR 0 (11) 9(A) , No pain 10:08:39 76 19 94 38.3 95/56(92) NSR 0 (11) 9(A) , No pain 10:12:47 75 19 92 35.3 100/63(76) NSR 0 (11) 9(A) , No pain 10:17:03 82 20 91 29.2 117/48(101) NSR 0 (11) 9(A) , No pain 10:21:21 83 18 93 31.5 100/61(81) NSR 0 (11) 10(A) , No pain 10:26:43 82 21 94 40.5 130/73(97) NSR 0 (11) 10(A) , No pain Medications Time Medication Route Dose Verified Delivered Reason Not es Effectiveness by by 9:41:08 Oxygen etCO2 2 l/min Efe Pena used for Nasal Alfredito Mcelroy RN procedure cannula 9:41:15 Lidocaine 2% added 20ml Efe Wilks for local to vial Alfredito Glaser MD anesthetic field 9:41:21 Heparin Flush added 2 bags Efe Wilks used for Bag to Alfredito Glaser MD procedure (1000units/500ml field NS) 9:41:31 0.9% NaCl I.V. 100 Efe Pena Per physician ml/hr Alfredito Mcelroy RN 9:49:05 Fentanyl I.V. 100 mcg Efe Buffie for sedation Alfredito Mcelroy RN 9:49:59 Versed I.V. 2 mg Efe Pena for sedation Alfredito Mcelroy RN 9:54:46 Radial Cocktail I.A. 1 Efe vivar (Verapamil syringe Alfredito Glaser MD vasodilation 2mg/Nitro 400mcg/Heparin 1500units) 10:01:21 Heparin Bolus I.V. 5000 Efe Pena for sean ified units Alfredito Mcelroy RN anticoagulation with dr glaser 10:04:32 Integrilin I.V. 10.2 ml Efe vivar was diomedes (Bolus 2mg/ml) Alfredito Mcelroy RN antiplatelet 9.8 ml therapy of vial 10:12:23 Versed I.V. 1 mg Efe Pena for sedation Alfredito Mcelroy RN 10:26:41 Effient P.O. 60 mg Efe Pena for Alfredito Mcelroy RN antiplatelet therapy Procedure Log Time Note 9:19:30 Informed consent obtained and on chart 9:19:52 Diagnostic Cath Status : Elective 9:20:25 Indication : Angina 9:22:36 Admit Source: Other 9:22:49 Arrival Date: 06/19/2019 2:08:00 PM 9:22:58 Insurance Payor : Medicaid 9:23:03 Patient Height : 70.08 inches 9:23:08 Patient Weight : 242.51 lbs 9:23:58 Lab Result : BUN 25 mg/dl 9:23:58 Lab Result : Hemoglobin 12.2 g/dl 9:23:58 Lab Result : Creatinine 1.5 mg/dl 9:24:42 3a) 45-59 Moderately reduced kidney function. 9:25:05 Maximum allowable contrast dose (3.7 X eGFR X 0.75)135 ml. 9:25:28 ACC Patient presents with Stable Angina CCS Anginal Class 2--Slight limitation of ordinary activity. 9:25:31 ACCPatient has been prescribed/administered the following anti-anginal medication within the last 2 weeks: None 9:26:16 Procedure Status Urgent Heart Cath (IP). 9:26:40 Beto MÉNDEZ(R) (CV) sent for patient. Start room use. 9:26:41 Time tracking: Regular hours (M-F 7:00 - 5:00) 9:26:46 Plan of Care:Hemodynamics will remain stable., Cardiac rhythm will remain stable., Comfort level will be maintained., Respiratory function will remain adequate., Patient/ family verbilizes understanding of procedure., Procedure tolerated without complication., Recovers from procedure without complications.. 9:40:56 Vital chart was started 9:41:08 Oxygen 2 l/min etCO2 Nasal cannula was administered by Jean Mcelroy RN; used for procedure; 9:41:15 Lidocaine 2% 20ml vial added to field was administered by Efe Glaser MD; for local anesthetic; 9:41:21 Heparin Flush Bag (1000units/500ml NS) 2 bags added to field was administered by Efe Glaser MD; used for procedure; 9:41:31 0.9% NaCl 100 ml/hr I.V. was administered by Jean Mcelroy RN; Per physician; 9:43:22 Patient received from Med II to CCL 1 Alert and oriented. Tansferred to table in Supine position. 9:43:23 Warm blankets applied, and yoni hugger turned on for patient comfort. 9:43:23 Correct patient and procedure confirmed by team. 9:43:24 ECG and BP/O2 sat monitors applied to patient. 9:43:25 Baseline sample Acquired. 9:43:29 Rhythm: sinus rhythm 9:43:31 Full Disclosure recording started 9:43:37 H&P Date Dictated: 06/21/2019 Within 30 days and on chart., H&P Addendum completed by physician on day of procedure. (MUST COMPLETE FOR ALL OUTPATIENTS). 9:43:38 Pre-procedure instructions explained to patient. 9:43:39 Pre-op teaching completed and patient verbalized understanding. 9:43:40 Family in waiting room. 9:43:42 Patient NPO since Midnight. 9:43:50 Is the patient allergic to Iodine/contrast media? No. 9:43:56 Was the patient premedicated? No 9:43:59 Is patient on blood thinner?No 9:44:01 Patient diabetic? No. 9:44:03 Previous problem with sedation/anesthesia? No ? 9:44:07 Snore? Yes 9:44:08 Sleep apnea? No 9:44:10 Deviated septum? No 9:44:10 Opens mouth fully? Yes 9:44:11 Sticks out tongue? Yes 9:44:13 Airway obstruction? No ? 9:44:16 Dentures? No ? 9:44:19 Pre procedure: right dorsailis pedis pulse 1+ Palpable, but thready & weak; easily obliterated 9:44:21 Pre procedure: left dorsailis pedis pulse 1+ Palpable, but thready & weak; easily obliterated 9:44:24 Patient pain scale 0/10 ?. 9:44:34 IV patent on arrival in left forearm with 0.9% NaCl at [facility]. 9:44:39 Lab results completed and on chart. 9:44:44 Right Radial & Right Groin area was prepped with chlora-prep and draped in sterile fashion 9:44:45 Alarms reviewed by R. N. 9:44:45 Sharps counted by scrub and verified by R.N. 9:47:03 Zero performed for pressure channel P1 9:47:15 Physician arrived 9:47:15 --------ALL STOP TIME OUT------ 9:47:16 Final Timeout: patient, procedure, and site verified with staff and physician. All members of the team are in agreement. 9:47:19 Right Radial & Right Groin site verified by team. 9:47:23 Fire Safety Assessment: A--An alcohol-based skin anteseptic being used preoperatively., C--Open oxygen or nitrous oxide is being used., D--An ESU, laser, or fiber-optic light is being used. 9:47:37 Physical assessment completed. ASA score P 2 - A patient with mild systemic disease as per Efe Glaser MD. 9:47:42 Sedation plan: IV Moderate Sedation Medication:Versed, Fentanyl 9:49:05 Fentanyl 100 mcg I.V. was administered by Jean Mcelroy RN; for sedation; 9:49:21 Use device set Radial Dx or PCI 9:49:22 ACIST Syringe (69312) opened to sterile field. 9:49:22 Medline Cath Pack ([id number]) opened to sterile field. 9:49:23 Bag Decanter () opened to sterile field. 9:49:23 ACIST Hand Control (96695) opened to sterile field. 9:49:23 ACIST Manifold (80191) opened to sterile field. 9:49:24 Tegaderm 4 x 4 (1626W) opened to sterile field. 9:49:24 MBrace Wrist Support ([id number]) opened to sterile field. 9:49:26 SHEATH 6FR RAIN (0450413) opened to sterile field. 9:49:26 EMERALD Guide Wire (502-390) opened to sterile field. 9:49:31 Procedure started. 9:49:35 Local anesthetic to right radial artery with Lidocaine 2% by Efe Glaser MD.INITIAL ACCESS ONLY 9:49:59 Versed 2 mg I.V. was administered by Jean Mcelroy RN; for sedation; 9:50:58 A 6 Fr Short sheath was inserted into the Right Radial artery 9:51:40 A DIAGNOSTIC [place]urt Field 110cm 5 Fr catheter (678183) was advanced over the wire and used for Multi-vessel Angiography. 9:54:46 Radial Cocktail (Verapamil 2mg/Nitro 400mcg/Heparin 1500units) 1 syringe I.A. was administered by Efe Glaser MD; for vasodilation; 9:56:19 LV hemodynamics recorded. 9:56:20 LV gram done using GUIDRY 9:56:23 Injector settings: Ml/sec: 5, Volume: 15, 9:56:29 EF : 20 % 9:57:17 Catheter removed. unable to cannulate vessel. 9:57:25 A DIAGNOSTIC AR2 MOD 5 Fr catheter ([id number]) was advanced over the wire and used for Right Coronary Angiography. 9:58:06 GUIDE 6FR XBLAD 3.5 catheter ([id number]) opened to sterile field. 9:58:28 RCA angiography performed. 9:58:36 Injector settings: Ml/sec: 3, Volume: 6, 9:58:54 Catheter removed. 9:59:09 6 Fr xblad 3.5 guide catheter was inserted over the wire 10:00:10 LCA angiography performed. 10:00:13 Injector settings: Ml/sec: 3, Volume: 6, 10:01:21 Heparin Bolus 5000 units I.V. was administered by Jean Mcelroy RN; for anticoagulation; verified with dr glaser 10:01:26 Catheter removed. 10:01:28 Proceeding to intervention. 10:01:49 INFLATOR Merit BasixCompak (GA1303) opened to sterile field. 10:01:55 CHOICE PT Extra Support 182cm wire ([id number]) opened to sterile field. 10:03:04 ACC Pre-intervention KVNG Flow is 3. 10:03:27 Pre PCI Site: [place] pCirc has 90% stenosis. 10:03:56 choice pt wire advanced. 10:03:59 Wire advanced across lesion. 10:04:32 Integrilin (Bolus 2mg/ml) 10.2 ml I.V. was administered by Jean Mcelroy RN; for antiplatelet therapy; wasted 9.8 ml of vial 10:06:34 Place stent Inflation Number: 1 A SABRA RX 2.75 x 30 stent ([id number]) was prepped and advanced across the Mid CX 90. The stent was deployed at 15 BRIANDA for 0:10 (min:sec) . 10:07:14 Stent catheter was removed intact over wire. 10:07:28 [place] IVUS Catheter (17641F) opened to sterile field. 10:07:29 CHOICE PT Extra Support 182cm wire ([id number]) opened to sterile field. 10:08:22 Wire removed. 10:08:38 new choice pt wire advanced down lad 10:08:48 Wire advanced across lesion. 10:08:52 IVUS catheter advanced over wire. 10:12:18 IVUS pass to LAD lesion performed. 10:12:23 Versed 1 mg I.V. was administered by Jean Mcelroy RN; for sedation; 10:12:27 IVUS measurement 77 %. 10:12:30 IVUS catheter removed over wire. 10:13:02 Place stent Inflation Number: 1 A SABRA RX 4.0 x 08 stent ([id number]) was prepped and advanced across the Prox LAD 77. The stent was deployed at 17 BRIANDA for 0:10 (min:sec) . 10:13:24 Inflation number: 2 The stent balloon was then re-inflated across the Prox LAD to 13 BRIANDA for 0:10 (min:sec) . 10:14:00 Stent catheter was removed intact over wire. 10:14:18 LASER ELCA 0.9 Rx atherectomy catheter (429693) opened to sterile field. 10:15:45 Laser pass to mLAD with Fluence of 40 and Rate of 80. 10:16:00 ACT drawn and resulted at oor seconds. (normal therapeutic range 180-240 seconds). 10:20:00 Laser catheter removed. 10:20:46 Inflate balloon Inflation number: 1 A EUPHORA 2.5 x 20 Balloon ([id number]) was prepped and advanced across the Mid LAD , then inflated to 17 BRIANDA for 0:10 (min:sec) . 10:21:31 Inflation number: 2 The EUPHORA 2.5 x 20 Balloon ([id number]) was reinflated across the Mid LAD , to 21 BRIANDA for 0:10 (min:sec) . 10:22:26 Balloon removed over the wire. 10:22:27 Wire removed. 10:22:28 Guide catheter removed. 10:23:11 ACC Post-intervention KVNG Flow is 3. 10:24:52 ZEPHYR REGULAR TR BAND (861712) opened to sterile field. 10:25:04 Sheath removed intact; hemostasis achieved with Mechanical Compression to the Right Radial artery. 10:25:06 Procedure ended.(Physican Out) 10:25:22 Fluoroscopy time 10.40 minutes. 10:25:27 Flurop Dose total: 2187 10:25:27 Fluoroscopy dose: 2187 mGy 10:25:35 Dose Area Product 17559 mGy/cm. 10:25:41 Contrast amount:Isovue 300 190ml. 10:25:44 Sharps counted by scrub and verified by R.N. 10:25:56 Maximum allowable dose exceeded? Yes. 10:26:19 TR band inflated with 11cc of air. 10:26:24 Insertion/operative site no bleeding no hematoma. 10:26:27 Post Procedure Pulses reassessed and unchanged 10:26:34 Post procedure rhythm: unchanged. 10:26:38 Estimated blood loss: 5 ml 10::41 Effient 60 mg P.O. was administered by Jean Mcelroy RN; for antiplatelet therapy; 10:26:42 Post procedure instruction explained to patient.Patient verbalizes understanding. 10:26:43 Patient needs reinforcement of post procedure teaching. 10:27:39 Procedure type changed to Cath procedure, Diagnostic procedure, LHC, LHC w/Coronaries, FFR/IVUS, Intra-Coronary IVUS Initial, Sedation Charges, Moderate Sedation up to 30 minutes, PCI procedure, Coronary Stent, Coronary Stent Initial x2, Coronary Atherectomy, Atherectomy w/PTCA Coronary Initial 10:27:41 Procedure and supply charges have been captured, reviewed, submitted and are correct. 10:27:47 Procedure Complication : No complications 10:27:50 Vital chart was stopped 10:27:51 See physician's report for complete and final results. 10:28:23 Report given to [facility]. 10:28:25 Patient transfered to [facility] with Stretcher. 10:28:28 Procedure ended. 10:28:28 Full Disclosure recording stopped 10:28:54 ACC-PCI Only Patient was given prescriptions, or instructed by Efe Glaser MD to start/continue the following medications upon discharge: Plavix 10:28:57 End room use (Document Last) Intervention Summary Intervention Notes Time ActionType Lesion and Equipment Used Action# Pressure Duration Attributes 10:06:34 Place stent Mid CX SABRA RX 2.75 x 1 15 00:10 30 stent ([id number]) 10:13:02 Place stent Prox LAD SABRA RX 4.0 x 1 17 00:10 08 stent ([id number]) 10:13:24 Reinflate Prox LAD SABRA RX 4.0 x 2 13 00:10 stent 08 stent balloon ([id number]) 10:20:46 Inflate Mid LAD EUPHORA 2.5 x 1 17 00:10 balloon 20 Balloon ([id number]) 10:21:31 Reinflate Mid LAD EUPHORA 2.5 x 2 21 00:10 balloon 20 Balloon ([id number]) Device Usage Item Name Manufacture Quantity Catalog Number Hospital Part Current M inimal Lot# / Charge Number Stock Stock Serial# Code ACIST Syringe Acist 1 05151 806300 494271 327820 2 0 (79379) Medical Systems Inc Medline Cath Medline 1 [id number] 212848 68827 183541 5 Pack ([id number]) Bag Decanter Microtek 1 2001S 403948 17425 758450 5 (2001S) Medical Inc. ACIST Hand Acist 1 45488 257212 532866 175404 5 Control Medical (80342) Systems Inc ACIST Manifold Acist 1 10901 548311 733110 611756 5 (99607) Medical Systems Inc Tegaderm 4 x 4 3M 1 1626W 337311 253251 167869 5 (1626W) MBrace Wrist Advanced 1 140-0250-00 534375 80906 850685 5 Support Vascular (161209676) Dynamics SHEATH 6FR Cardinal 1 1574958 537248 7566125 293535 5 RAIN (3579195) Health EMERALD Guide Cardinal 1 502-455 154308 089971 743838 5 Wire (502-278) Health DIAGNOSTIC Terumo 1 40-2816 401044 996921 636745 5 [place]url[place]urt Field 110cm 5 Fr catheter (777770) DIAGNOSTIC AR2 Cardinal 1 [id number] 179501 032254 013157 2 0 MOD 5 Fr Health catheter (304053Z) GUIDE 6FR Cardinal 1 70099060 574491 417083 348954 1 0 XBLAD 3.5 Health catheter (62413398) INFLATOR Merit Merit 1 BR3590 200520 489338 720644 1 5 [employer]osphere Technologies (XQ8226) CHOICE PT [place] 2 [id number] 461165 841914 945490 5 Extra Support Scientific 182cm wire (1410827Y2) SABRA RX 2.75 x Medtronic 1 [id number] 006500 5632396 602281 5 [id number] 30 stent ([id number]) [place] 1 35140J 821611 062149 303672 8 [place] IVUS Catheter (16376D) SABRA RX 4.0 x Medtronic 1 [id number] 595374 7772201 317262 5 [id number] 08 stent ([id number]) LASER ELCA 0.9 Clarisse 1 110-004 301963 713923 584037 5 Rx atherectomy Healthcare catheter (339113) (989063) EUPHORA 2.5 x Medtronic 1 [id number] 203265 050955 630034 5 [id number] 20 Balloon ([id number]) ZEPHYR REGULAR Cardinal 1 389193 586183 6300992 608729 5 TR [employer] Communications (820850) Signature Audit [place] Stage Time Signature Unsigned Intra-Procedure 06/21/2019 Stephanie Roman 10:33:28 AM RT(R) Signatures Performing Physician : Signature : Efe Glaser MD Date : Time : Monitor : Beto Echevarria RT Signature : Date : Time : Nurse : Buffie Mcelroy RN Signature : Date : Time : [address] [place] [address]
[~2019-06-19 14:08] MED LIST changes: +VISTARIL50 MG PO
--- NOTE | 2019-06-19 15:30 | NUR ---
RECEIVED PT TO ROOM 2124 VIA W/C FROM ADMISSIONS AAOX4 RESP NOTED SOB O2 PLACED 2LPM NC VSS PT SITTING IN CHAIR DENIES ANY PAIN AT THIS TIME SALINE LOCK SITED TO LT HAND WITH 22 GA IV CATHETER X 1 ATTEMPT USING ASEPTIC TECHNIQUE PT TOLERATED WELL
[2019-06-19 16:03] VITALS: BP 141/76; BMI 25.1
[2019-06-19 16:58] LABS: BASOPHILS 0.4 % (0-2); EOSINOPHILS 5.1 % (0-7); HEMATOCRIT 36.5 % (42.0-54.0); HEMOGLOBIN 12.2 g/dL (13.5-17.5); IMMATURE GRANULOCYTES 0.1 % (0-5); LYMPHOCYTES 21.4 % (15-50); MCH 27.4 pg (26.0-34.0); MCHC 33.4 g/dL (31.0-37.0); MCV 81.8 fL (80.0-100.0); MEAN PLATELET VOLUME 10.7 fL (7.4-10.4); MONOCYTES 10.5 % (2-11); NEUTROPHILS 62.5 % (40-80); PLATELET COUNT 219 10x3/uL (130-400); RBC 4.46 10x6/uL (4.20-6.10); WBC 7.5 10x3/uL (4.8-10.8)
[2019-06-19] MEDS ORDERED: AVAPRO150 MG PO (17:17)
[2019-06-19] MEDS ORDERED: ALBUTEROL0.63 MG/3 INH (17:22)
[2019-06-19 17:39] LABS: ANION GAP 13.2 mmol/L (8-16); CALCIUM 8.5 mg/dL (8.5-10.1); CARBON DIOXIDE 25.6 mmol/L (21.0-32.0); CREATININE - SERUM 1.5 mg/dL (0.6-1.3); POTASSIUM - SERUM 3.8 mmol/L (3.5-5.1); TROPONIN-I 0.031 ng/mL (0.000-0.060)
[2019-06-19 18:24] VITALS: BP 140/108
[2019-06-19 20:00] VITALS: BP 143/75
[2019-06-20 04:00] VITALS: BP 129/71
--- NOTE | 2019-06-20 07:49 | NUR ---
ROUNDING DONE WITH PATIENT RESTING IN RECLINER AT THIS TIME. EYES CLOSED. ON 2L PER NC. OBESE. ON HEART MONITOR. LEFT HAND PIV SEEN WITH DOBUTAMINE INFUSING AT 16.7 CC/HR AND BUMEX INFU10 CC/HR. SING AT
[2019-06-20 09:20] VITALS: BP 102/76
--- NOTE | 2019-06-20 12:04 | HP ---
PATIENT: LYNDSEY MATOS MEDICAL RECORD: [id number] ACCOUNT: [id number] LOCATION:[address] : 48 ADMISSION DATE: 06/19/19 PCP: GRIS REYNAGA MD HISTORY AND PHYSICAL EXAMINATION DIAGNOSES: 1. Congestive heart failure, chronic systolic dysfunction. 2. Dyspnea on exertion and shortness of breath. 3. Dilated cardiomyopathy, ischemic. 4. Unstable angina. 5. Coronary artery disease. 6. Status post multivessel percutaneous transluminal coronary angioplasty stent. 7. Hypertension. 8. Hyperlipidemia. HISTORY OF PRESENT ILLNESS: Mr. Matos is well known to us with a past history of coronary artery disease, multivessel PTCA stent, presents with increasing shortness of breath, dyspnea on exertion, congestive heart failure symptomatology as well as unstable anginal symptomatology class IV. Last cardiac intervention is over a year ago. He had a cardiac catheterization in November revealing patency of his previously placed stents; however, at that time, his ejection fraction was in the 20 or less percent range. PHYSICAL EXAMINATION: CONSTITUTIONAL/GENERAL APPEARANCE: Well nourished, well developed, appears stated age. Level of distress, comfortable. EYES: Lids and conjunctivae noninjected. No discharge. No pallor. ENT: Lips within normal limit. No cyanosis. No pallor. NECK: Carotid arteries, bilateral normal upstroke. No bruits. No thrills. No jugular venous pressure or distention. CERVICAL LYMPH NODES: Nontender. Nonenlarged. THYROID: Not enlarged. No nodules. CARDIOVASCULAR: Precordial exam, nondisplaced. No heaves or pericardial thrills. Rate and rhythm, regular. Heart sounds, normal S1, normal S2. No S3, no gallop, no rub. Systolic murmur, not heard. Diastolic murmur, not heard. PULMONARY: He has crackles bilaterally compatible with pulmonary edema. ABDOMEN: Soft, nondistended, nontender. MUSCULOSKELETAL: No joint tenderness, normal gait, normal tone. SKIN: Warm and dry. FAMILY HISTORY: Positive for premature coronary artery disease and hypertension. Negative for pulmonary disorders. SOCIAL HISTORY: He lives in the [place] area. He works as an automotive designer, lives with his mother, and is . REVIEW OF SYSTEMS: HEENT: Negative visual problems. Negative FOLDER MACHINE ADJUSTER problems. Negative eye problems. Negative ENT problems. NECK: No masses. No carotid bruits. No pain. PULMONARY: Shortness of breath as above with dyspnea on exertion from a cardiac etiology. He does have a smoking history, but has quit many years ago. Denies any cough, sputum or fevers. GASTROINTESTINAL: Denies any nausea or vomiting. Negative for diarrhea. HISTORY AND PHYSICAL [id number] LYNDSEY MATOS Negative for abdominal pain. MUSCULOSKELETAL: Positive for mild edema. Negative for weakness, negative for rash. OVERALL IMPRESSION: 1. Congestive heart failure. At this time, he has chronic systolic dysfunction. We will place him on a Bumex drip and place him on a dobutamine drip. We will re-echo him to see if there has been a change in his overall ejection fraction, which most likely there has not been. 2. Unstable angina. He has a history of multivessel coronary artery disease. The last cardiac intervention was over a year ago; however, it is in the class IV unstable angina. At this time, we will proceed with coronary angiography when he is out of heart failure. Further care depends upon the results with the dobutamine, Bumex drip and the angiogram. TRANSINT:[id number] Voice Confirmation ID: [id number] DOCUMENT ID: [id number] GRIS REYNAGA MD at 1204 CC: [id number] DICTATION DATE: 06/20/19 1057 MUSCULOSKELETAL PHYSICIAN: 06/20/19 1111 ADM IN [facility] [address] [place] [address]
--- NOTE | 2019-06-20 12:46 | NUR ---
PATIENT SITTING IN CHAIR PAST LUNCH. SARAI WAS GIVEN EARILER FOR DISCOMFORT OF UPPER ABDOMINAL. ON HEART MONITOR SHOWING SR WITH MULTIFOCAL PVC.
[2019-06-20 13:34] VITALS: Ht 177.8 cm; Wt 79.4 kg
[2019-06-20 13:35] VITALS: BP 113/56
--- NOTE | 2019-06-20 13:45 | NUR ---
IV TO LEFT HAND IS STARTING TO GET PUFFY. IV CATH REMOVED WITH TIP INTACT. RE-SITED TO LEFT AC X 1 STICK WITH 22 G.
--- NOTE | 2019-06-20 14:00 | NUR ---
COMPLETE BATH DONE AND LINENS CHANGED PER THIS NURSE.
--- NOTE | 2019-06-20 16:30 | NUR ---
PATIENT IS IN THE BED LAYING ON LEFT SIDE RESTING WITH EYES CLOSED.
--- NOTE | 2019-06-20 16:49 | NUR ---
B/P 103/40, COREG HELD. I SPOKE WITH PHILLIP LIMON CHARGE AND SHE AGREES WITH ME.
--- NOTE | 2019-06-20 17:15 | NUR ---
RECIEVED REPORT FROM DAY SHIFT NURSE. PT SITTING UP ON SIDE OF BED EATTING DINNER. IV TO LEFT AC WITH DOUBTAMINE DRIP INFUSING AT 16.7, BUMEX AT 10 CC HR, IV SITE CLEAN AND DRY. PT DENIES PAIN OR NEEDS, BED LOW, CL IN REACH.
[2019-06-20 17:42] VITALS: BP 91/73
[2019-06-20 20:00] VITALS: BP 99/57
--- NOTE | 2019-06-20 20:38 | NUR ---
HS MEDS GIVEN WITH FRESH ICE WATER. PT ASKING FOR NORCO TO BE BROUGHT IN AN HOUR OR SO FROM NOW.
--- NOTE | 2019-06-20 21:27 | NUR ---
CONSENTS SIGNED FOR CARDIAC CATH TO BE DONE IN THE AM. NORCO 1 TAB GIVEN AT PT REQUEST FOR C/O PAIN.
--- NOTE | 2019-06-21 02:02 | NUR ---
ANSWERED CL. PT SITTING UP IN CHAIR, STATED THAT HE FEELS LIKE HES ABOUT TO "LOSE IT" STATED THAT HE NEEDS SOMETHING TO BRING HIM DOWN, HE FEELS LIKE HIS SKIN IS ITCHING AND NERVES ARE JITTERY. LEFT ROOM AND PULLED VISTARIL FROM [employer], PT PUT PILL IN HIS MOUTH THEN SPIT IT OUT, STATED THAT HE JUST REMEMBERED THAT HE CAN TAKE THAT BECUASE IT WILL MAKE HIM ACT CRAZY. PILL WAS THROWN INTO SHARPS CONTAINER. PT STATED THAT HE WILL BE OK, THAT HE WILL JUST SIT THERE WITH THE LIGHT ON AND CALM HIM SELF DOWN.
--- NOTE | 2019-06-21 03:00 | NUR ---
I have reviewed this patient and I concur with the Shift Assessment completed by the Licensed Practical Nurse today this shift.
--- NOTE | 2019-06-21 03:41 | NUR ---
RESTING WITH EYES CLOSED, RESPERATIONS EVEN, NO S/S DISTRESS NOTED.
[2019-06-21 04:00] VITALS: BP 125/68
--- NOTE | 2019-06-21 07:28 | NUR ---
REPORT RECEIVED. WILL CONTINUE WITH POC. PT CURRENTLY RESTING SITTING UP IN CHAIR. CALL LIGHT W/I REACH. RR EVEN AND UNLABORED ON 2L 02. DOBUTAMINE INFUSING @16.7ML/HR AND BUMEX INFUSING @10ML/HR VIA L.AC PIV. NO S/S OF DISTRESS NOTED. PT IS NPO FOR CATH THIS AM. WILL CTM.
[2019-06-21 09:31] VITALS: BP 139/55
--- NOTE | 2019-06-21 09:38 | NUR ---
PREOP MEDICATIONS ADMINISTERED PER MONUMENT LETTERER REQUEST. PT TRANSFERED TO MONUMENT LETTERER. WILL CTM.
--- NOTE | 2019-06-21 10:52 | NUR ---
PT RETURN FROM [employer] WITH RIGHT RADIAL TR BAND. PERIPHERAL PULSES BILATERALLY STRONG AND EVEN. NS INFUSING @100ML/HR VIA L.AC PIV. RR EVEN AND UNLABORED. NO S/S HEMATOMA PRESENT. WILL CTM.
--- NOTE | 2019-06-21 15:33 | NUR ---
I have reviewed this patient and I concur with the Shift Assessment completed by the Licensed Practical Nurse today this shift.
[2019-06-21 16:14] VITALS: BP 121/68
--- NOTE | 2019-06-21 16:40 | NUR ---
REMOVED HALF AIR OUT OF TR BAND TO RIGHT RADIAL. SITE BEGAN TO BLEED IMMEDIATELY. REINSTILLED 6ML OF AIR. WILL CTM.
[2019-06-21 19:54] VITALS: BP 131/56
--- NOTE | 2019-06-22 02:53 | NUR ---
RESTING WITH EYES CLOSED, RESPERATIONS EVEN, NO S/S DISTRESS NOTED.
[2019-06-22 03:57] VITALS: BP 117/60
--- NOTE | 2019-06-22 06:10 | NUR ---
I have reviewed this patient and I concur with the Shift Assessment completed by the Licensed Practical Nurse today this shift.
--- NOTE | 2019-06-22 07:26 | NUR ---
REPORT RECEIVED. WILL CONTINUE WITH POC. PT CURRENTLY SITTING UP IN CHAIR. PT IS AAO AND UP AD MARTIN. RR EVEN AND UNLABORED ON 2L 02. L.AC PIV IS SALINE LOCKED. PT DENIES ANY NEEDS. NO S/S OF DISTRESS NOTED. WILL CTM.
[2019-06-22 08:25] VITALS: BP 116/79
[2019-06-22 11:33] VITALS: BP 126/82
--- NOTE | 2019-06-22 12:21 | NUR ---
Nutrition Follow-up: S/p heart cath 06/21. Overall good appetite/PO intake. Diet: Cardiac PO intake: 100% (06/21) Wt: 175# Last BM: 06/22 Labs reviewed Meds reviewed Provided/discussed "Heart Healthy Reduced Sodium Nutrition Therapy"; questions answered. Rec continue current diet as tolerated. [place] food preferences within diet restrictions. RD following.
--- NOTE | 2019-06-22 12:24 | NUR ---
I have reviewed this patient and I concur with the Shift Assessment completed by the Licensed Practical Nurse today this shift.
[2019-06-22 14:51] VITALS: BP 121/74
[2019-06-22 20:27] VITALS: BP 120/48
[2019-06-23 00:27] VITALS: BP 123/60
--- NOTE | 2019-06-23 03:19 | NUR ---
I have reviewed this patient and I concur with the Shift Assessment completed by the Licensed Practical Nurse today this shift.
--- NOTE | 2019-06-23 03:20 | NUR ---
RESTING WITH EYES CLOSED, RESPERATONS EVEN, NO S/S DSITRESS NOTED.
[2019-06-23 04:19] VITALS: BP 126/61
--- NOTE | 2019-06-23 07:00 | NUR ---
RECEIVED REPORT FROM NIGHT NURSE. PATIENT RESTING IN BED AWAKE ALERT AND ORIENTED. NO COMPLAINTS. WILL CONTINUE TOMONITOR
[2019-06-23 08:32] VITALS: BP 125/63
--- NOTE | 2019-06-23 09:55 | EC ---
PATIENT:LYNDSEY PAVON DATE OF SERVICE: 06/19/19 SEX: M MEDICAL RECORD: [id number] DATE OF : [birth year] LOCATION:D.M2 D.212 AGE OF PATIENT: 68 ADMISSION DATE: 06/19/19 REFERRING PHYSICIAN: INTERPRETING PHYSICIAN: GRIS GLASER MD ECHOCARDIOGRAM REPORT ECHO CHARGES 4 ECHO COMPLETE Date: 06/20/19 CLINICAL DIAGNOSIS: CHF HX CAD/ICD ECHOCARDIOGRAPHIC MEASUREMENTS (adult normal given) AC root (d.<3.7cm) 3.6 cm LV Septum d (<1.2 cm> 1.6 cm Valve Excursion 1.6 cm LV Septum (systole) 2.0 cm Left Atria (s.<4.0cm> 5.0 cm LVPW d(<1.2cm) 1.6 cm RV (d.<2.3cm) 5.4 cm LVPW (sytole) 2.0 cm LV diastole(<5.6CM) 6.8 cm MV E-F(>70mm/sec) cm LV systole 4.9 cm LVOT Diameter cm MV exc.(>10mm) 1.8 cm Est.ejection fraction (50-75%) % DOPPLER: LVIT cm/sec A 72.0 cm/sec E 39.0 cm/sec LA cm/sec RVSP 23 mmHg LVOT 87 cm/sec AOP1/2T m/s Asc. Ao 104 cm/sec RVOT 79 cm/sec RA cm/sec PA 125 cm/sec AV Gradient Peak 4.35 mmHg AV Mean 2.25 mmHg AV Area 3.7 cm MV Gradient Peak 2.99 mmHg MV Mean 0.77 mmHg MV Area cm COMMENTS: Strapping Machine Tender: David RICHTER Telegraph Repeater Mechanic: 1 Dr. Glaser TAPE# PACS Pericardial Effusion Y DATE OF SERVICE: 06/20/2019 ECHOCARDIOGRAM DATE OF SERVICE: 06/20/2019 FINDINGS: 1. Left ventricular chamber size is dilated. Left ventricular systolic function is moderately reduced at 30% to 35%. 2. Left atrium is enlarged at 5.0 cm. Right atrium and right ventricular ECHOCARDIOGRAM REPORT [id number] LYNDSEY PAVON chamber sizes are as well moderate to severely dilated. 3. Valvular structures have normal structure and motion. 4. Doppler interrogation reveals mild mitral regurgitation, mild tricuspid regurgitation, no other valvular insufficiency or stenosis. Pulmonary systolic pressure is estimated at 23 mmHg. 5. No evidence of pericardial effusion or left ventricular thrombus. TRANSINT:[id number] Voice Confirmation ID: [id number] DOCUMENT ID: [id number] GRIS GLASER MD at 0955 CC: [id number] DICTATION DATE: 06/20/19 1556 PREVENTATIVE MAINTENANCE TECHNICIAN: 06/20/19 1615 ADM IN [id number] [place] [address]
[2019-06-23] MEDS ORDERED: ENTRESTO 24 MG1 EACH PO (10:56)
[2019-06-23] MEDS ORDERED: EFFIENT10 MG PO (10:56)
[2019-06-23] MEDS ORDERED: ATIVAN0.5 MG PO (10:57)
--- NOTE | 2019-06-23 11:21 | NUR ---
DISCHARGE INSTRUCTIONS AND NEW PRESCRIPTIONS GIVEN TO PATIENT. DC'D IV AND TELEMETRY. CALLING FOR RIDE
--- NOTE | 2019-06-23 11:45 | NUR ---
PATIENT PICKED UP BY FOR DISCHARGE. TAKEN TO VEHICLE VIA WHEEL CHAIR.
--- NOTE | 2019-06-23 16:20 | MORECARE ---
CASE MANAGEMENT DISCHARGE SUMMARY PATIENT: LYNDSEY PAVON UNIT: [id number] ADM DATE: 06/19/19 AGE: 68 : [birth year] SEX: M ROOM/BED: D.0477 AUTHOR: ABRIL PATTON PHYSICIAN: REFERRING PHYSICIAN: GRIS REYNAGA MD DATE OF SERVICE: 06/23/19 Discharge Plan Patient Name: LYNDSEY PAVON Facility: [facility]:[place] : 1950 Planned Disposition: Home Anticipated Discharge Date: 06/23/19 Discharge Date: 06/23/2019 Expected LOS: 4 Initial Reviewer: [email or web address] Initial Review Date: 06/23/2019 Generated: 06/23/19 5:20 pm Comments DCP- Discharge Planning Updated by [email or web address]: Nura Nieves on 06/23/19 3:[address] Patient Name: LYNDSEY PAVON Admission Status: Urgent Accout number: [id number] Admission Date: 06-19-2019 : 1950 Admission Diagnosis:CHEST PAIN, UNSPECIFIED Attending: KIM REYNAGA Current LOS: 4 Anticipated DC Date: 06-23-2019 Planned Disposition: Home Primary Insurance: [place]ICAID [place] Discharge Planning Comments: CM ATTEMPTED TO MEET WITH PT FOR INITIAL ASSESSMENT OF DISCHARGE NEEDS. PT WAS NOT IN ROOM AT APPROXIMATELY 1210 HOURS. PT HAD BEEN DISCHARGE HOME AND WAS NO LONGER PRESENT IN ROOM. Computer Graphic Artist: Nura Nieves Patient Name: LYNDSEY PAVON Page [id number] at 1620 All edits/amendments must be made on the electronic document DICTATION DATE: 06/23/19 1620 INTEGRATION TECHNICIAN: BJ 06/23/19 1620 RPT#: [id number] DC DATE:06/23/19 STATUS: DIS IN [id number] [place] [address] END OF REPORT
--- NOTE | 2019-06-27 11:09 | OP ---
PATIENT NAME: LYNDSEY PAVON MEDICAL RECORD: [id number] :[birth year] LOCATION:D.M2 D.2125 ADMISSION DATE:06/19/19 SURGEON: GRIS REYNAGA MD DATE OF OPERATION: 06/21/2019 PROCEDURES: 1. PTCA stent left circumflex. 2. PTCA stent LAD. 3. Laser atherectomy LAD. 4. Intravascular ultrasound. 5. Left heart catheterization. 6. Selective coronary angiography. 7. Left ventriculogram. INDICATION: Unstable angina class IV, coronary artery disease. PROCEDURE IN DETAIL: After informed consent was obtained and after a detailed description of risks, benefits as well as alternative therapies, the patient elected to proceed with angiogram and angioplasty. The right radial area was prepped and draped in normal sterile fashion. Right radial artery was cannulated via modified Seldinger technique with placement of 6-[place] sheath. All catheters exchanged through this sheath. FINDINGS: The left ventriculogram was performed in standard 30-degree GUIDRY view reveals markedly depressed ejection fraction at 20% or less. SELECTIVE CORONARY ANGIOGRAPHY: 1. Left main is with no significant angiographic disease. 2. Left anterior descending has a very hazy unstable area proximally followed by multiple previously placed stents. At the distal end of the stent, there is 90% in-stent restenosis. 3. Left circumflex has 80-85% stenosis in the mid vessel. 4. Right coronary is small, nondominant, but there is a 90% to 95% stenosis in the mid vessel. PTCA STENT OF THE LEFT CIRCUMFLEX: The stent used was a 2.75 x 30 mm [place]. Result was 0% residual stenosis. Intravascular ultrasound was performed of the proximal LAD. This revealed a greater than 75% stenosis of this unstable hazy area in the proximal LAD, this was addressed with a 4.0 x 8 mm [place] stent. Result was 0% residual stenosis. The in-stent restenosis distally was addressed with a 0.9 laser catheter with multiple passes made followed by 2.5 balloon with high pressure balloon dilatation. Result was 0% residual stenosis. OVERALL IMPRESSION: Successful laser atherectomy, percutaneous transluminal coronary angioplasty stent of the left anterior descending, and successful percutaneous transluminal coronary angioplasty stent of circumflex, both going from 80% and 90% initial stenosis to 0% residual. TRANSINT:[id number] Voice Confirmation ID: [id number] DOCUMENT ID: [id number] OPERATIVE REPORT [id number] LYNDSEY PAVON, GRIS GRIMES at 1109 CC: [id number] DICTATION DATE: 06/21/19 1041 CONTACT LENS EDGE BUFFER: 06/21/19 1051 DIS IN 06/23/19 [facility] [address] [id number]
--- NOTE | 2019-06-27 11:09 | DS ---
PATIENT:LYNDSEY MATOS :[birth year] MEDICAL RECORD: [id number] DISCHARGE SUMMARY ADMISSION DATE: 06/19/19 DISCHARGE DATE: 06/23/19 DISCHARGE DIAGNOSES: 1. Congestive heart failure, chronic systolic dysfunction. 2. Cardiomyopathy. 3. Coronary artery disease. 4. Percutaneous transluminal coronary angioplasty and stent to the left anterior descending and left circumflex this admission. 5. Hypertension. HOSPITAL COURSE: Mr. Matos presents with decompensated congestive heart failure and found to have an ejection fraction in the 20% or less range, underwent cardiac catheterization revealing 2-vessel coronary artery disease, underwent successful PTCA and stent of the LAD and circumflex. He was placed on dobutamine and Bumex drip. His heart failure symptomatology cleared. He had no further anginal symptomatology after the angioplasty, was discharged home, discontinuing his Avapro, and the addition of Entresto to his medical regimen as well as Effient. Will follow up with [facility] in 2 weeks. TRANSINT:[id number] Voice Confirmation ID: [id number] DOCUMENT ID: [id number] GRIS REYNAGA MD at 1109 CC: [id number] DICTATION DATE: 06/23/19 1004 [employer]ODU[employer] INSPECTOR: 06/23/19 1100 DIS IN 06/23/[address] [id number]
== END 2019-06-23 12:22 | disposition home or self-care (01) | DRG 246 ==
LOC: D.M2 14:08
PROVIDERS: ADMIT Internal Medicine Interventional Cardiology; ATTEND Internal Medicine Interventional Cardiology
PROC: B240ZZ3 Ultrasonography of Single Coronary Artery, Intravascular (ICD-10-PCS; 2019-06-21)
PROC: 4A023N7 Measurement of Cardiac Sampling and Pressure, Left Heart, Percutaneous Approach (ICD-10-PCS; 2019-06-21)
PROC: B2111ZZ Fluoroscopy of Multiple Coronary Arteries using Low Osmolar Contrast (ICD-10-PCS; 2019-06-21)
PROC: B2151ZZ Fluoroscopy of Left Heart using Low Osmolar Contrast (ICD-10-PCS; 2019-06-21)
PROC: 027135Z Dilation of Coronary Artery, Two Arteries with Two Drug-eluting Intraluminal Devices, Percutaneous Approach (ICD-10-PCS; principal; 2019-06-21 13:45)
PROC: 02C03ZZ Extirpation of Matter from Coronary Artery, One Artery, Percutaneous Approach (ICD-10-PCS; 2019-06-21 13:45)
DX: I25.110 Atherosclerotic heart disease of native coronary artery with unstable angina pectoris (principal); I50.23 Acute on chronic systolic (congestive) heart failure; I11.0 Hypertensive heart disease with heart failure; E78.5 Hyperlipidemia, unspecified; I42.0 Dilated cardiomyopathy

== ENCOUNTER 2020-06-17 18:44 | Inpatient (IN) | payer MEDICAID ==
[~2020-06-17] VITALS: Ht 177.8 cm; Wt 113.6 kg
--- NOTE | ~2020-06-17 | HEMODYNAMI ---
PATIENT:LYNDSEY PAVON MEDICAL RECORD: [id number] : [birth year] LOCATION:[facility] D.2117 [facility]# [id number] ADMISSION DATE: 06/17/20 Generatedon:06/18/202013:17 Patient name: LYNDSEY PAVON Patient #: [id number] : 1950 Date of study: 06/18/2020 Page: Of Hemodynamic Procedure Report Patient Data Patient Demographics Procedure consent was obtained First Name: LYNDSEY Gender: Male Last Name: SAVANAH : 1950 [facility] Initial: PALMA Age: 69 year(s) Patient #: [id number] Race: SSN: [id number] Additional ID: [id number] Contact details [address]: [address] [place] [address] State: [place] City: [place] Zip code: [address] Past Medical History History of disease Date Diagnosis Comments CAD Allergies Allergen Reaction Date Comments Reported Morphine 07/20/2016 Other allergy 07/20/2016 LISINOPRIL Other allergy 03/01/2018 Morphine,Meoprolol, Plavix Other allergy 11/13/2018 lISINOPRIL, METOPROLOL, MORPHINE, CLOPIDOGREL Other allergy 12/05/2019 MORPHINE, PLAVIX, LISINOPRIL, METOROLOL LORAZEPAM Other allergy 06/18/2020 morphine, plavix, lisinopril,metoprolol, lorazepam Admission Admission Data Admission Date: 06/17/2020 Admission Time: 21:00 Admit Source: Emergency Insurance Payor: Medicare, department Medicaid Room #: D.2117 [facility] #: [id number] Height (in.): 69.69 BSA: 2.28 (m2) Height (cm.): 177 BMI: 36.07 (kg/m2) Weight (lbs.): 249.12 Weight (kg.): 113 Lab Results Lab Result Date: 06/18/2020 Lab Result Time: 4:37 Biochemistry Name Units Result Min Max BUN mg/dl 20 --(----)*- 7 18 Creatinine mg/dl 1.5 --(----)-* 0.6 1.3 CBC Name Units Result Min Max Hematocrit % 45.6 --(-*--)-- 42 54 Hemoglobin g/dl 14.8 --(-*--)-- 13.5 17.5 Procedure Procedure Types Cath Procedure Diagnostic Procedure [facility] w/Coronaries Sedation Charges Moderate Sedation up to 15 minutes PCI Procedure Coronary Stent PTCA PTCA Initial Hemochron ACT Test Procedure Description Procedure Date Procedure Date: 06/18/2020 Procedure Start Time: 12:50 Procedure End Time: 13:14 Procedure Staff Name Function Hunter Araujo MD Performing Physician Messi Burger RT Monitor Wendy Overton RN Nurse Jean Mcelroy RN Audio Visual Equipment Rental Clerk Emily Rooney RT Scrub Procedure Data Cath Procedure Fluoroscopy Diagnostic fluoroscopy Total fluoroscopy Time: 4.4 time: 4.4 min min Diagnostic fluoroscopy Total fluoroscopy dose: dose: 1529 mGy 1529 mGy Contrast Material Contrast Material Type Amount (ml) Isovue 300 117 Entry Location Entry Primary Successful Side Size Upsize Upsize Entry Closure Succes sful Closure Location (Fr) 1 (Fr) 2 (Fr) Remarks Device Remarks Femoral Right 5 Fr 6 Fr Exoseal artery Short Estimated blood loss: 10 ml Diagnostic catheters Device Type Used For End Catheter Placement MULTIPACK JL 4.0 5Fr Procedure catheter MULTIPACK 3DRC 5Fr Procedure catheter MULTIPACK Pigtail 5 Fr Procedure catheter Procedure Complications No complications Procedure Medications Medication Administration Route Dosage 0.9% NaCl I.V. 100 ml/hr Oxygen etCO2 Nasal cannula 2 l/min Lidocaine 2% added to field 20 Heparin Flush Bag added to field 2 bags (1000units/500ml NS) Versed I.V. 2 mg Fentanyl I.V. 50 mcg Heparin Bolus I.V. 5000 units Effient P.O. 10 mg Hemodynamics Rest BSA: 2.28 (m2) HGB: 14.8 (g/dl) O2 Consumption: Estimated: 266.22 (ml/min) O2 Co nsumption indexed: Estimated:116.76 (ml/min/m) Heart Rate: 73 (bpm) Pressure Samples Time Site Value (mmHg) Purpose Heart Use Rate(bpm) 12:53 AO 115/65(82) Snapshot 69 12:58 LV 127/22,28 Snapshot 73 12:58 LV 100/19,19 EDP 82 12:59 LV 116/18,29 Pullback 74 12:59 AO 126/56(82) Pullback 74 Gradients Valve Time Site 1 Site 2 Mean SEP/DFP Peak To Heart Use (mmHg) (sec/min) Peak Rate (mmHg) (bpm) Aortic 12:59 LV AO 0 11 0 74 116/18,29 126/56(82) Calculations Valve P-P Mean Valve Index Valve Source Name Gradient Area Flow (cm2) Aortic 0 0 0 0 Snapshots Pre Cath Intra NCS Post Cath Vital Signs Time Heart Resp SPO2 etCO2 NIBP (mmHg) Rhythm Pain Sedation Rate (ipm) (%) (mmHg) Status Level (bpm) 12:40:12 74 31 95 36.7 159/82(115) NSR 0 (11) 10(A) , No pain 12:44:52 71 26 95 17.9 140/87(120) NSR 0 (11) 10(A) , No pain 12:49:27 63 25 97 32.2 132/89(110) NSR 0 (11) 10(A) , No pain 12:53:57 67 25 98 36.7 151/88(109) NSR 0 (11) 10(A) , No pain 12:58:33 74 21 98 34.4 128/78(112) NSR 0 (11) 10(A) , No pain 13:03:02 73 29 98 30.7 143/83(108) NSR 0 (11) 10(A) , No pain 13:07:32 74 24 97 27.7 140/83(120) NSR 0 (11) 10(A) , No pain 13:12:31 70 16 94 38.1 Measuring NSR 0 (11) 10(A) , No pain 13:13:16 72 30 94 11.9 168/106(134) NSR 0 (11) 10(A) , No pain Medications Time Medication Route Dose Verified Delivered Reason Notes Effectiveness by by 12:38:37 0.9% NaCl I.V. 100 Hunter Wendy used for ml/hr Van Tian procedure MD FISHER 12:38:44 Oxygen etCO2 2 Hunter Wendy used for Nasal l/min VanTalha Overton procedure cannula MD FISHER 12:38:49 Lidocaine 2% added 20ml Hunter Harrison for local to vial [facility] anesthetic field MD GRIMES 12:38:55 Heparin Flush added 2 Hunter Harrison used for Bag to bags [facility] procedure (1000units/500ml field MD GRIMES NS) 12:50:56 Versed I.V. 2 mg Hunter Wendy for sedation St Talha Overton MD RN 12:51:02 Fentanyl I.V. 50 Hunter Wendy for sedation mcg St Talha Overton MD RN 13:00:50 Heparin Bolus I.V. 5000 Hunter Wendy for verif ied units [facility] anticoagulation with Dr. GRIMES RN [place] 13:09:58 Effient P.O. 10 mg Hunter Wendy for Rose Bud Tian antiplatelet RN therapy Procedure Log Time Note 12:15:54 Jean Mcelroy RN sent for patient. Start room use. 12:23:07 Informed consent obtained and on chart 12:27:44 Insurance Payor : Medicare, Medicaid 12:27:51 Patient Weight : 249.12 lbs 12:27:53 Patient Height : 69.69 inches 12:29:18 Lab Result : Hemoglobin 14.8 g/dl 12:29:18 Lab Result : Hematocrit 45.6 % 12:29:18 Lab Result : BUN 20 mg/dl 12:29:18 Lab Result : Creatinine 1.5 mg/dl 12:29:42 Admit Source: Emergency department 12:29:49 ACC Patient presents with Unstable Angina CCS Anginal Class 3--Marked limitation of physical activity, angina occurs with ordinary activity.. 12:29:52 Procedure Status Urgent Heart Cath (IP). 12:29:59 Time tracking: Regular hours (M-F 7:00 - 5:00) 12:30:03 Plan of Care:Hemodynamics will remain stable., Cardiac rhythm will remain stable., Comfort level will be maintained., Respiratory function will remain adequate., Patient/ family verbilizes understanding of procedure., Procedure tolerated without complication., Recovers from procedure without complications.. 12:30:07 Patient received from Med II to CCL 1 Alert and oriented. Tansferred to table in Supine position. 12:30:08 Warm blankets applied, and yoni hugger turned on for patient comfort. 12:30:09 ECG and BP/O2 sat monitors applied to patient. 12:30:09 Correct patient and procedure confirmed by team. 12:30:19 H&P Date Dictated: 06/17/2020 Within 30 days and on chart.. 12:38:22 Vital chart was started 12:38:37 0.9% NaCl 100 ml/hr I.V. was administered by Wendy Overton RN; used for procedure; Verbal order read back and verified. 12:38:44 Oxygen 2 l/min etCO2 Nasal cannula was administered by Wendy Overton RN; used for procedure; Verbal order read back and verified. 12:38:49 Lidocaine 2% 20ml vial added to field was administered by Hunter Araujo MD; for local anesthetic; Verbal order read back and verified. 12:38:55 Heparin Flush Bag (1000units/500ml NS) 2 bags added to field was administered by Hunter Araujo MD; used for procedure; Verbal order read back and verified. 12:42:04 Baseline sample Acquired. 12:42:09 Rhythm: sinus rhythm 12:43:45 Pre-op teaching completed and patient verbalized understanding. 12:43:45 Pre-procedure instructions explained to patient. 12:43:49 Family unavailable. 12:43:56 Patient NPO since Midnight. 12:44:36 Patient allergic to Other allergymorphine, plavix, lisinopril,metoprolol, lorazepam 12:44:38 Is the patient allergic to Iodine/contrast media? No. 12:44:39 Is patient on blood thinner?Yes 12:44:44 ACC The patient was administered the following blood thiners within the last 24 hours: ACCAspirin, ACCEffient 12:44:54 Patient diabetic? No. 12:45:01 Previous problem with sedation/anesthesia? No ? 12:45:04 Snore? Yes 12:45:06 Sleep apnea? Yes 12:45:10 Deviated septum? No 12:45:11 Opens mouth fully? Yes 12:45:14 Sticks out tongue? Yes 12:45:20 Airway obstruction? Yes COPD 12:45:29 Dentures? No ? 12:45:31 Pre procedure: right dorsailis pedis pulse 2+ Normal; easily identifiable; not easily obliterated 12:45:32 Patient pain scale 0/10 ?. 12:45:44 IV patent on arrival in right wrist with 0.9% NaCl at [facility]. 12:45:46 Lab results completed and on chart. 12:45:51 Risk of Mortality: 0.4% 12:45:56 Risk of blood transfusion: 0.6% 12:46:07 Risk of PUNEET: 4.6% 12:46:10 Right groin area was prepped with chlora-prep and draped in sterile fashion 12:46:16 Alarms reviewed by R. N. 12:46:17 Sharps counted by scrub and verified by R.N. 12:46:19 Use device set Femoral Dx 12:46:20 Bag Decanter (2002S) opened to sterile field. 12:46:20 ACIST Syringe (64421) opened to sterile field. 12:46:21 Medline Cath Pack ([id number]) opened to sterile field. 12:46:22 ACIST Manifold (15138) opened to sterile field. 12:46:22 ACIST Hand Control (81351) opened to sterile field. 12:46:24 DIAGNOSTIC Multipack 5Fr catheter set (TU7600) opened to sterile field. 12:46:24 Tegaderm 4 x 4 (1626W) opened to sterile field. 12:46:26 SHEATH 5FR Severance (NCV809) opened to sterile field. 12:46:26 EMERALD Guide Wire (553-605) opened to sterile field. 12:46:39 Physician arrived 12:46:40 Final Timeout: patient, procedure, and site verified with staff and physician. All members of the team are in agreement. 12:46:40 --------ALL STOP TIME OUT------ 12:46:41 Right groin site verified by team. 12:46:45 Fire Safety Assessment: A--An alcohol-based skin anteseptic being used preoperatively., C--Open oxygen or nitrous oxide is being used., D--An ESU, laser, or fiber-optic light is being used. 12:46:48 Physical assessment completed. ASA score P 3 - A patient with severe systemic disease as per Hunter Araujo MD. 12:47:04 3a) 45-59 Moderately reduced kidney function. 12:47:07 Maximum allowable contrast dose (3.7 X eGFR X 0.75)135 ml. 12:47:11 Sedation plan: IV Moderate Sedation Medication:Versed, Fentanyl 12:50:52 Full Disclosure recording started 12:50:52 Procedure started. 12:50:54 Local anesthetic to right femoral artery with Lidocaine 2% by Hunter Araujo MD.INITIAL ACCESS ONLY 12:50:56 Versed 2 mg I.V. was administered by Wendy Overton RN; for sedation; Verbal order read back and verified. 12:51:02 Fentanyl 50 mcg I.V. was administered by Wendy Overton RN; for sedation; Verbal order read back and verified. 12:52:08 A 5 Fr sheath was inserted into the Right Femoral artery 12:52:10 Zero performed for pressure channel P1 12:52:57 A MULTIPACK JL 4.0 5Fr catheter was advanced over the wire and used for Procedure. 12:53:46 LCA angiography performed. 12:56:05 Catheter exchanged over wire. 12:57:29 A MULTIPACK 3DRC 5Fr catheter was advanced over the wire and used for Procedure. 12:57:35 RCA angiography performed. 12:57:38 Catheter removed. 12:57:50 SHEATH 6FR Severance (YVM411) opened to sterile field. 12:57:50 INFLATOR Merit BasixCompak (FW5079) opened to sterile field. 12:58:04 A MULTIPACK Pigtail 5 Fr catheter was advanced over the wire and used for Procedure. 12:58:46 LV gram done using GUIDRY 12:58:49 Injector settings: Ml/sec: 10, Volume: 20, 12:58:56 EF : 15 % 12:58:57 LV hemodynamics recorded. 12:58:58 Catheter removed. 12:59:04 Sheath upsized to a 6 Fr Short. 12:59:33 GUIDE 6FR XBLAD 3.5 catheter ([id number]) opened to sterile field. 12:59:38 WHISPER 300cm guide wire ([id number]) opened to sterile field. 12:59:45 6 Fr xblad 3.5 guide catheter was inserted over the wire 12:59:49 whisper wire advanced. 13:00:50 Heparin Bolus 5000 units I.V. was administered by Wendy Overton RN; for anticoagulation; verified with Dr. Crocker Verbal order read back and verified. 13:05:29 Wire advanced across lesion. 13:06:51 Inflate balloon Inflation number: 1 A EMERGE OTW 4.0 x 20 balloon ([id number]) was prepped and advanced across the Mid LAD , then inflated to 16 BRIANDA for 0:30 (min:sec) . 13:07:16 Balloon removed over the wire. 13:07:17 Guide catheter removed. 13:07:17 Wire removed. 13:07:22 EXOSEAL 6Fr (EX600) opened to sterile field. 13:07:32 Sheath removed intact; hemostasis achieved with Exoseal to the Right Femoral artery. 13:07:33 Procedure ended.(Physican Out) 13:09:58 Effient 10 mg P.O. was administered by Wendy Overton RN; for antiplatelet therapy; Verbal order read back and verified. 13:11:02 Fluoroscopy time 04.40 minutes. 13:11:06 Fluoroscopy dose: 1529 mGy 13:11:06 Flurop Dose total: 1529 13:11:12 Dose Area Product 87951 mGy/cm. 13:11:15 Contrast amount:Isovue 300 117ml. 13:11:17 Sharps counted by scrub and verified by R.N. 13:11:17 Maximum allowable dose exceeded? No. 13:11:22 Insertion/operative site no bleeding no hematoma. 13:11:24 Post-op/insertion site Right Femoral artery dressed using a 4 x 4 and Tegaderm. 13:11:27 Post right femoral artery:stable, soft, clean and dry 13:11:32 Post-procedure physical assessment completed. ASA score P 3 - A patient with severe systemic disease as per Hunter Araujo MD. 13:11:34 Post procedure rhythm: unchanged. 13:11:35 Estimated blood loss: 10 ml 13:11:41 Patient needs reinforcement of post procedure teaching. 13:11:41 Post procedure instruction explained to patient.Patient verbalizes understanding. 13:12:05 Procedure type changed to Cath procedure, Diagnostic procedure, LHC, [facility] w/Coronaries, Sedation Charges, Moderate Sedation up to 15 minutes, PCI procedure, Coronary Stent, PTCA, PTCA Initial, Hemochron ACT Test 13:12:40 Procedure and supply charges have been captured, reviewed, submitted and are correct. 13:12:43 Procedure Complication : No complications 13:12:45 Vital chart was stopped 13:12:49 [facility] Findings: MVD- PCI performed (see procedure note) 13:12:51 Operative report dictated upon procedure completion. 13:12:54 Report given to PCU. 13:12:56 Patient transfered to PCU with Stretcher. 13:12:59 ACC Pre-intervention KVNG Flow is 3. 13:13:06 Pre PCI Site: [place] mLAD has 80% stenosis. 13:13:12 ACC Post-intervention KVNG Flow is 3. 13:13:49 ACT drawn and resulted at 273 seconds. (normal therapeutic range 180-240 seconds). 13:14:00 Post PCI Site: [place] mLAD has 0% stenosis. 13:14:07 Full Disclosure recording stopped 13:14:07 Procedure ended. 13:14:11 End room use (Document Last) 13:15:11 End room use (Document Last) 13:15:22 Messi Burger RT(R) was relieved by Messi Burger RT(R) as monitoring person Intervention Summary Intervention Notes Time ActionType Lesion and Equipment Action# Pressure Duration Attributes Used 13:06:51 Inflate Mid LAD EMERGE OTW 1 16 00:30 balloon 4.0 x 20 balloon ([id number]) Device Usage Item Name Manufacture Quantity Catalog Number Hospital Part Current Min imal Lot# / Charge Number Stock Stock Serial# Code ACIST Acist 1 74947 858061 142585 769011 20 Syringe Medical (06535) Systems Inc Bag Decanter Microtek 1 2001S 879019 64043 366671 5 (2001S) Medical Inc. Medline Cath Medline 1 [id number] 352220 53694 714029 5 Pack ([id number]) ACIST Hand Acist 1 40534 794222 894088 814870 5 Control Medical (42479) Systems Inc ACIST Acist 1 82521 043781 929807 371302 5 Manifold Medical (25777) Systems Inc Tegaderm 4 x 3M 1 1626W 169207 207707 012574 5 4 (1626W) DIAGNOSTIC Cardinal 1 LY6741 241827 37251 679380 30 Multipack Aneumed 5Fr catheter set (JI5931) EMERALD Cardinal 1 502-455 247941 134037 849190 5 Guide Wire Health (502-455) SHEATH 5FR Terumo 1 EUX913 802498 481149 560127 5 Severance (EUX205) MULTIPACK JL Cardinal 1 870733 5 4.0 5Fr Health catheter MULTIPACK Cardinal 1 934146 5 3DRC 5Fr Health catheter INFLATOR Merit 1 JV5871 713957 441720 016466 15 [facility] [place] Medical BasixCompak (SU1028) SHEATH 6FR Terumo 1 WJZ350 826507 611514 176180 40 Severance (CQG489) MULTIPACK Cardinal 1 758931 5 Pigtail 5 Fr Health catheter GUIDE 6FR Cardinal 1 [id number] 884052 485408 085911 10 XBLAD 3.5 Health catheter (52050950) WHISPER [place] 1 [id number] 089322 422887 064330 5 300cm guide Vascular wire (7533157FH) EMERGE OTW [place] 1 [id number] 997625 255387 318477 5 [id number] 4.0 x 20 Scientific balloon ([id number]) EXOSEAL 6Fr Cardinal 1 EX600 769439 847077 242138 10 (EX600) Health Signature Audit [place] Stage Time Signature Unsigned Intra-Procedure 06/18/2020 Wendy Overton 1:15:12 PM RN Intra-Procedure 06/18/2020 Messi Burger 1:15:35 PM RT(R) Intra-Procedure 06/18/2020 Hunter Gonzáles 1:17:35 PM Talha GRIMES [id number] [place] [address]
[~2020-06-17 18:44] MED LIST changes: +ALBUTEROL0.63 MG/3 INH; +ATIVAN0.5 MG PO; +ENTRESTO 24 MG1 EACH PO
[2020-06-17 20:00] VITALS: BP 130/85
[2020-06-17 20:19] LABS: BASOPHILS 0.2 % (0-2); EOSINOPHILS 8.7 % (0-7); HEMATOCRIT 44.8 % (42.0-54.0); HEMOGLOBIN 14.6 g/dL (13.5-17.5); IMMATURE GRANULOCYTES 0.2 % (0-5); LYMPHOCYTES 27.1 % (15-50); MCH 29.8 pg (26.0-34.0); MCHC 32.6 g/dL (31.0-37.0); MCV 91.4 fL (80.0-100.0); MEAN PLATELET VOLUME 11.7 fL (7.4-10.4); MONOCYTES 8.1 % (2-11); NEUTROPHILS 55.7 % (40-80); RDW 14.9 % (11.5-14.5); WBC 6.6 10x3/uL (4.8-10.8)
[2020-06-17 20:23] LABS: PLATELET COUNT 174 10x3/uL (130-400)
[2020-06-17 20:30] LABS: APTT 29.2 SECONDS (22.8-39.4); INR 1.07 (0.85-1.17); PROTIME 13.8 SECONDS (11.6-15.0)
[2020-06-17 20:31] LABS: ANION GAP 10.4 mmol/L (8-16); CALCIUM 8.5 mg/dL (8.5-10.1); CARBON DIOXIDE 29.8 mmol/L (21.0-32.0); CREATININE - SERUM 1.4 mg/dL (0.6-1.3); D-DIMER-QUANTITATIVE 0.29 ug/mLFEU (0.20-0.54); POTASSIUM - SERUM 4.2 mmol/L (3.5-5.1)
[2020-06-17 20:46] LABS: ALBUMIN 3.5 g/dL (3.4-5.0); BILIRUBIN - TOTAL 0.89 mg/dL (0.2-1.3); C-REACTIVE PROTEIN 1.8 mg/dL (0.0-0.9); MAGNESIUM - SERUM 2.1 mg/dL (1.8-2.4); PROTEIN - SERUM 6.7 g/dL (6.4-8.2); THYROID STIMULATING HORMONE 1.61 uIU/mL (0.36-3.74); TROPONIN-I 0.039 ng/mL (0.000-0.060)
[2020-06-17] MEDS ORDERED: ATIVAN0.5 MG PO ×2 (23:43)
[2020-06-18 04:00] VITALS: BP 150/79
[2020-06-18 04:51] LABS: BASOPHILS 0.3 % (0-2); EOSINOPHILS 8.6 % (0-7); HEMATOCRIT 45.6 % (42.0-54.0); HEMOGLOBIN 14.8 g/dL (13.5-17.5); IMMATURE GRANULOCYTES 0.3 % (0-5); LYMPHOCYTES 19.4 % (15-50); MCH 29.9 pg (26.0-34.0); MCHC 32.5 g/dL (31.0-37.0); MCV 92.1 fL (80.0-100.0); MEAN PLATELET VOLUME 11.1 fL (7.4-10.4); MONOCYTES 10.8 % (2-11); NEUTROPHILS 60.6 % (40-80); PLATELET COUNT 173 10x3/uL (130-400); RBC 4.95 10x6/uL (4.20-6.10); WBC 7.6 10x3/uL (4.8-10.8)
[2020-06-18 05:17] LABS: ALBUMIN 3.3 g/dL (3.4-5.0); ANION GAP 9.8 mmol/L (8-16); BILIRUBIN - TOTAL 1.06 mg/dL (0.2-1.3); CALCIUM 8.2 mg/dL (8.5-10.1); CARBON DIOXIDE 31.2 mmol/L (21.0-32.0); CREATININE - SERUM 1.5 mg/dL (0.6-1.3); MAGNESIUM - SERUM 2.1 mg/dL (1.8-2.4); PROTEIN - SERUM 6.5 g/dL (6.4-8.2); TROPONIN-I 0.041 ng/mL (0.000-0.060)
[2020-06-18 08:00] VITALS: BP 130/66
[2020-06-18 08:38] LABS: CHOL - HDL RATIO 4.3 ratio (2.3-4.9); LDL-HDL RATIO 2.4 ratio (1.5-3.5)
--- NOTE | 2020-06-18 09:00 | NUR ---
TELEMETRY SR HR 70. CONSENTS SIGNED FOR [facility]. WILL CONT. PLAN OF CARE.
--- NOTE | 2020-06-18 12:24 | NUR ---
PRE-OPS GIVEN. TO [facility] HELPER BY BED.
--- NOTE | 2020-06-18 12:43 | NUR ---
EFFIENT GIVEN IN SOCIAL MEDIA MARKETING MANAGER.
[2020-06-18 13:22] VITALS: Ht 177.8 cm; Wt 113.6 kg
--- NOTE | 2020-06-18 13:41 | NUR ---
BACK FROM PARKING ENFORCER. VS WNL. RIGHT GROIN STABLE WITHOUT BLEEDING OR HEMATOMA NOTED. WILL MONITOR.
[2020-06-18 15:00] VITALS: BP 135/77
[2020-06-18 15:28] LABS: UDS - AMPHET NEGATIVE QUAL (NEGATIVE); UDS - BARB NEGATIVE QUAL (NEGATIVE); UDS - BENZO POSITIVE QUAL (NEGATIVE); UDS - COCAINE NEGATIVE QUAL (NEGATIVE); UDS - OPIATE NEGATIVE QUAL (NEGATIVE); UDS - PCP NEGATIVE QUAL (NEGATIVE); UDS - THC NEGATIVE QUAL (NEGATIVE)
--- NOTE | 2020-06-18 16:51 | NUR ---
BED REST UP. GROIN STABLE.
--- NOTE | 2020-06-18 19:43 | NUR ---
RECEIVED BEDSIDE REPORT. ROUNDING COMPLETE. PATIENT IS ALERT AND ORIENTED, SITTING ON SIDE OF THE BED EATING BURGER SAMANTHA. RESPIRATIONS ARE EVEN AND UNLABORED. NO S/S OF DISTRESS. NO C/O PAIN. CALL LIGHT WITHIN REACH. WILL CPOC.
[2020-06-18 22:30] VITALS: BP 135/60
[2020-06-19 04:30] VITALS: BP 138/60
[2020-06-19 06:32] LABS: BASOPHILS 0.1 % (0-2); EOSINOPHILS 7.2 % (0-7); HEMATOCRIT 44.4 % (42.0-54.0); HEMOGLOBIN 14.5 g/dL (13.5-17.5); IMMATURE GRANULOCYTES 0.1 % (0-5); LYMPHOCYTES 21.2 % (15-50); MCH 29.8 pg (26.0-34.0); MCHC 32.7 g/dL (31.0-37.0); MCV 91.2 fL (80.0-100.0); MEAN PLATELET VOLUME 11.8 fL (7.4-10.4); MONOCYTES 10.3 % (2-11); NEUTROPHILS 61.1 % (40-80); PLATELET COUNT 187 10x3/uL (130-400); RBC 4.87 10x6/uL (4.20-6.10); RDW 14.8 % (11.5-14.5); WBC 7.2 10x3/uL (4.8-10.8)
[2020-06-19 07:11] LABS: ALBUMIN 3.3 g/dL (3.4-5.0); ANION GAP 11.1 mmol/L (8-16); BILIRUBIN - TOTAL 0.63 mg/dL (0.2-1.3); CALCIUM 8.2 mg/dL (8.5-10.1); CARBON DIOXIDE 28.4 mmol/L (21.0-32.0); CREATININE - SERUM 1.5 mg/dL (0.6-1.3); POTASSIUM - SERUM 3.5 mmol/L (3.5-5.1); PROTEIN - SERUM 6.7 g/dL (6.4-8.2)
[2020-06-19 08:46] VITALS: BP 164/73
[2020-06-19 11:59] VITALS: BP 98/59
--- NOTE | 2020-06-19 17:01 | NUR ---
Rehab Note- Acute Inpatient Rehab prescreen order received. The patient has Medicaid and can not be admitted to [facility] Acute Inpatient Rehab. Thank you for this referral! Roselyn Pastor RN Clinical Liaison, [facility] Rehab
[2020-06-19 17:08] VITALS: BP 125/74
--- NOTE | 2020-06-19 19:30 | NUR ---
RECEIVED BEDSIDE REPORT. ROUNDING COMPLETE. PATIENT IS ALERT AND ORIENTED, RESTING COMFORTABLY IN BED. RESPIRATIONS ARE EVEN AND UNLABORED. NO S/S OF DISTRESS. NO C/O PAIN. DENIES NEEDS AT THIS TIME. CALL LIGHT WITHIN REACH. WILL CPOC.
[2020-06-19 20:30] VITALS: BP 122/85
[2020-06-20 04:30] VITALS: BP 114/66
[2020-06-20 06:25] LABS: BASOPHILS 0.3 % (0-2); EOSINOPHILS 8.1 % (0-7); HEMATOCRIT 46.9 % (42.0-54.0); HEMOGLOBIN 15.5 g/dL (13.5-17.5); IMMATURE GRANULOCYTES 0.2 % (0-5); MCV 90.9 fL (80.0-100.0); MEAN PLATELET VOLUME 11.1 fL (7.4-10.4); MONOCYTES 8.8 % (2-11); NEUTROPHILS 62.6 % (40-80); PLATELET COUNT 164 10x3/uL (130-400); RBC 5.16 10x6/uL (4.20-6.10); RDW 14.8 % (11.5-14.5); WBC 6.1 10x3/uL (4.8-10.8)
[2020-06-20 06:59] LABS: ALBUMIN 3.5 g/dL (3.4-5.0); ANION GAP 15.1 mmol/L (8-16); BILIRUBIN - TOTAL 0.64 mg/dL (0.2-1.3); CALCIUM 8.6 mg/dL (8.5-10.1); CARBON DIOXIDE 25.6 mmol/L (21.0-32.0); CREATININE - SERUM 1.3 mg/dL (0.6-1.3); PROTEIN - SERUM 6.5 g/dL (6.4-8.2)
[2020-06-20 07:01] LABS: POTASSIUM - SERUM 4.7 mmol/L (3.5-5.1)
--- NOTE | 2020-06-20 09:54 | NUR ---
Nutrition Follow-up: Observed majority of breakfast eaten this AM. Noted ok to d/c per cards. Diet: Diabetic PO intake: 75-100% Wt: 250# (06/19) Last BM: 06/19 Labs noted: Glu 126 Meds noted: Lasix, KCl, Protonix, electrolyte protocol -Monitor wt; noted daily wts ordered. -RD following.
--- NOTE | 2020-06-20 10:13 | NUR ---
STATES HE WOKE UP FROM A DEEP SLEEP AND IT FELT LIKE HE HAD STOPPED BREATHING. O2 SATS 97% ON 2L. WILL CONT TO MONITOR.
[2020-06-20 10:21] VITALS: BP 135/65
[2020-06-20] MEDS ORDERED: EFFIENT10 MG PO (11:52)
[2020-06-20] MEDS ORDERED: ALDACTONE25 MG PO (11:52)
[2020-06-20 12:23] VITALS: BP 114/63
--- NOTE | 2020-06-20 14:00 | NUR ---
IV AND TELEMETRY DCD. DC PLANS GIVEN. UNDERSTANDING VOICED. ESCORTED TO CAR BY W/C.
--- NOTE | 2020-06-20 19:17 | MORECARE ---
CASE MANAGEMENT DISCHARGE SUMMARY PATIENT: LYNDSEY PAVON UNIT: [id number] ADM DATE: 06/17/20 AGE: 69 : [birth year] SEX: M ROOM/BED: D.4348 AUTHOR: ABRIL PATTON PHYSICIAN: REFERRING PHYSICIAN: PRETTY DE LEON MD DATE OF SERVICE: 06/20/20 Discharge Plan Patient Name: LYNDSEY PAVON Facility[facility]:[place] : 1950 Planned Disposition: Home Anticipated Discharge Date: 06/20/20 Discharge Date: 06/20/2020 Expected LOS: 3 Initial Reviewer: [email or web address] Initial Review Date: 06/17/2020 Generated: 06/20/20 8:16 pm Comments DCP- Discharge Planning Updated by [email or web address]: Karley Garcia on 06/20/20 6:[address] 06/19 Late entry: CM met with patient for DC needs/plans. Patient states he lives independently, at home with his 90 year old mother. PCP: None. Pharmacy: [facility] and he picks up his prescriptions. DME: "I have it all".' [facility]: portable O2, home O2, bedside commode, RW, W/C. Emergency contact: Pranav Flores (just like a son) [phone], Esther Hidalgo (dtr) [phone]. CM offered Inpatient rehab, HHS, SNF but he states that he needs to get home. Phone number for PCP provided. Transportation: Pranav Flores. DC instructions include to follow up with [facility] in 7-10 days. If patient establishes with a PCP, then he will be able to speak to him about HHS. SUYAPA signed for [facility]. CM will contact them to let them know he will follow up with [facility] and then they can hopefully see him. CM will call Mary 06/21. Patient Name: LYNDSEY PAVON Page [id number] at 1917 All edits/amendments must be made on the electronic document DICTATION DATE: 06/20/201915 DIETARY AID: [id number] 06/20/201915 RPT#: [id number] DC DATE:06/20/20 STATUS: DIS IN [facility] [address] [place] [address] END OF REPORT
--- NOTE | 2020-06-21 08:19 | CN ---
PATIENT NAME:LYNDSEY PAVON MEDICAL RECORD: [id number] : [birth year] LOCATION:D. D.2117 ADMIT DATE: 06/17/20 ACCOUNT: [id number] CONSULTING PHYSICIAN: ITZEL PURVIS MD REFERRING PHYSICIAN: PRETTY DE LEON MD DATE OF CONSULTATION: 06/18/2020 HISTORY OF PRESENT ILLNESS: A 69-year-old gentleman well known to our service with a history of coronary artery disease, status post multivessel intervention 12/2019, was doing fairly well up until last week with fairly rapid progression of both cardiomyopathic and ischemic symptomatology, chest tightness, pressure with exertion, progressing to point of alexi orthopnea and PND. Has intervention to right circ and LAD in December, had known cardiomyopathy, is well maintained on a combination of carvedilol and Entresto. PAST MEDICAL HISTORY: Includes: 1. History of hypertension. 2. Hyperlipidemia. 3. Coronary artery disease as described above. 4. Cardiomyopathy. ALLERGIES: LISINOPRIL, LORAZEPAM, MORPHINE, METOPROLOL, PLAVIX. MEDICATIONS: Include albuterol t.i.d., carvedilol 3.125 b.i.d., Entresto 24/26 b.i.d., aspirin 81 q. day, Bumex 2 mg p.o. q. day, potassium supplementation. SOCIAL HISTORY: Nonsmoker. Was able to take care of all his ADLs, in fact helps take care of some elderly neighbors. Does try to walk as well. REVIEW OF SYSTEMS: The patient reports easy bruising but reports no swollen glands. The patient reports no fever, no night sweats, no significant weight gain, no significant weight loss. No significant exercise tolerance. The patient reports no dry eyes, no irritation, no vision change. Patient reports no difficulty hearing and no ear pain. Patient reports no frequent nose bleeds or nose and sinus problems. Patient reports no arm pain on exertion. No shortness of breath while lying down. No history of heart murmur. Patient reports no cough, no wheezing or coughing up blood. Patient reports no abdominal pain, no vomiting. Normal appetite. No diarrhea and not vomiting blood. No nausea and no constipation. Patient reports no incontinence. No difficulty urinating. No hematuria. No increased frequency. Patient reports no muscle aches. No weakness, no arthralgias, no back pain. No swelling of the extremities. Patient reports no abnormal mole, no jaundice, no rashes. Reports no loss of consciousness. No weakness and no numbness. No seizures, dizziness, or headaches. The patient reports no depression, no sleep disturbance, feeling safe in a relationship and no alcohol abuse. Patient reports no fatigue. Reports no runny nose or sinus pressure. No itching, no hives, and no frequent sneezing. PHYSICAL EXAMINATION: GENERAL: No acute distress, appears stated age. VITAL SIGNS: 150/79, pulse 68 and regular. HEENT: Normocephalic, atraumatic. NECK: No bruits noted. HEART: Regular. II/ systolic ejection murmur. S3 gallop is noted. LUNGS: Diminished breath sounds, both bases. CONSULT REPORT [id number] LYNDSEY PAVON ABDOMEN: Soft, nontender. EXTREMITIES: Pulses 1+. A 1+ edema. IMPRESSION: Acute coronary syndrome with underlying volume overload. Given multivessel intervention approximately 6 months ago, certainly within window for restenosis. PLAN: Started on Dobutrex drip and Aldactone. Diagnostic angiography in the near future. NTS:[id number] Voice Confirmation ID: [id number] DOCUMENT ID: [id number] ITZEL PURVIS MD at 0819 CC: [id number] DICTATION DATE: 06/18/20 0857 INDUSTRIAL RECRUITER: 06/18/202014 DIS IN 06/20/20 [place] [id number] [place] [id number]
--- NOTE | 2020-06-21 08:19 | EC ---
PATIENT:LYNDSEY APVON DATE OF SERVICE: 06/17/20 SEX: M MEDICAL RECORD: [id number] DATE OF : [birth year] LOCATION:D.M2 D.211 AGE OF PATIENT: 69 ADMISSION DATE: 06/17/20 REFERRING PHYSICIAN: INTERPRETING PHYSICIAN: ITZEL PURVIS MD ECHOCARDIOGRAM REPORT ECHO CHARGES 4 ECHO COMPLETE Date: 06/18/20 CLINICAL DIAGNOSIS: CHF, CARDIOMYOPATHY ECHOCARDIOGRAPHIC MEASUREMENTS (adult normal given) AC root (d.<3.7cm) 2.8 cm LV Septum d (<1.2 cm> 1.2 cm Valve Excursion 1.6 cm LV Septum (systole) 1.3 cm Left Atria (s.<4.0cm> 5.3 cm LVPW d(<1.2cm) 1.1 cm RV (d.<2.3cm) 4.3 cm LVPW (sytole) 1.2 cm LV diastole(<5.6CM) 6.9 cm MV E-F(>70mm/sec) cm LV systole 6.0 cm LVOT Diameter 1.7 cm MV exc.(>10mm) cm Est.ejection fraction (50-75%) % DOPPLER: LVIT cm/sec A 28 cm/sec E 79 cm/sec LA cm/sec RVSP 21.4 mmHg LVOT 72 cm/sec AOP1/2T m/s Asc. Ao 147 cm/sec RVOT 106 cm/sec RA cm/sec PA 93 cm/sec AV Gradient Peak 8.7 mmHg AV Mean 5.7 mmHg AV Area 0.9 cm MV Gradient Peak 3.3 mmHg MV Mean 1.2 mmHg MV Area cm COMMENTS: Geological Engineer: Rossana WOOD Clam Dredge Boat Captain: 3 Dr. Crocker TAPE# PACS Pericardial Effusion N DATE OF SERVICE: Adequate 2D, color flow imaging, spectral Doppler, and M-Mode. No LVH. LV internal dimension are dilated. LV is globally hypokinetic with reduced EF, estimated at 25%. Aortic valve sclerosis without stenosis by Doppler interrogation. Left atrium is dilated at 5.3 cm. Mitral valve shows no prolapse. Mild MR. Right-sided chambers are grossly normal. Mild TR. TRANSINT:[id number] Voice Confirmation ID: [id number] DOCUMENT ID: [id number] ECHOCARDIOGRAM REPORT [id number] NEYLAND,ITZEL MOULTON MD at 0819 CC: [id number] DICTATION DATE: 06/18/20 1441 STATION HELPER: 06/18/20 2258 DIS IN 06/20/20 [facility] [address] [place] [id number]
--- NOTE | 2020-06-21 08:19 | OP ---
PATIENT NAME: LYNDSEY PAVON MEDICAL RECORD: [id number] :48 LOCATION:D.M2 D.2117 ADMISSION DATE:06/17/20 SURGEON: ITZEL PURVIS MD DATE OF OPERATION: 06/18/2020 PROCEDURE: Left heart catheterization, selective coronary angiography, plus PTCA to the LAD, right femoral artery approach. CATHETERS: A 5-Austrian sheath, 5/4 left and right Sravanthi, 5/4 pig. The procedure was well tolerated. The patient returned to the [place]. Sheath removed. ExoSeal device placed. FINDINGS: Left ventriculography in 30-degree GUIDRY view shows global hypokinesis, EF markedly reduced, estimated EF 15%. CORONARY ANATOMY: LEFT MAIN: Left main is free of disease. LAD: LAD has a very discrete focal restenosis of the mid portion 80% to 90%. CIRCUMFLEX: Circumflex has minimal luminal irregularities in the area of previous stenting with no flow obstructive disease. RIGHT CORONARY ARTERY: Rudimentary. PLAN: Intervention to LAD momentarily. DESCRIPTION OF PROCEDURE: A 5-Austrian sheath was exchanged for a 6-Austrian sheath. An XB LAD guide catheter provided fair guide catheter support followed by a 300 cm Whisper wire. Balloon used was a 4.0 x 15 mm [place] balloon up to 14 atmospheres. Final angiography shows excellent resolution of 80% discrete focal restenosis. No significant residual. KVNG flow was 3 throughout the procedure. Heparin was used during the case. The patient was previously on Effient. Sheath was closed with ExoSeal device. TRANSINT:[id number] Voice Confirmation ID: [id number] DOCUMENT ID: [id number] ITZEL PURVIS MD at 0819 CC: [id number] DICTATION DATE: 06/18/20 1313 [facility]ARE FACILITY ADMINISTRATOR: 06/18/20 2234 DIS IN 06/20/20 [place] [id number] [place] [id number]
== END 2020-06-20 14:00 | disposition home or self-care (01) | DRG 250 ==
LOC: D.ER 18:44 → D.M2 21:00
PROVIDERS: Family Medicine; Internal Medicine Interventional Cardiology; ADMIT Family Medicine Adult Medicine; ATTEND Family Medicine Adult Medicine
PROC: B2111ZZ Fluoroscopy of Multiple Coronary Arteries using Low Osmolar Contrast (ICD-10-PCS; 2020-06-18)
PROC: B2151ZZ Fluoroscopy of Left Heart using Low Osmolar Contrast (ICD-10-PCS; 2020-06-18)
PROC: 02703ZZ Dilation of Coronary Artery, One Artery, Percutaneous Approach (ICD-10-PCS; principal; 2020-06-18 12:15)
PROC: 4A023N7 Measurement of Cardiac Sampling and Pressure, Left Heart, Percutaneous Approach (ICD-10-PCS; 2020-06-18 12:15)
DX: I25.110 Atherosclerotic heart disease of native coronary artery with unstable angina pectoris (principal); I50.23 Acute on chronic systolic (congestive) heart failure; I13.0 Hypertensive heart and chronic kidney disease with heart failure and stage 1 through stage 4 chronic kidney disease, or unspecified chronic kidney disease; I42.9 Cardiomyopathy, unspecified; E78.5 Hyperlipidemia, unspecified; I25.5 Ischemic cardiomyopathy; N18.3 Chronic kidney disease, stage 3 (moderate); D63.1 Anemia in chronic kidney disease; F41.9 Anxiety disorder, unspecified